=== PATIENT | female | born 1940 | race Asian ===

== ENCOUNTER 2017-02-13 08:58 | Outpatient (CLI) | payer MEDICARE, OTHER ==
[2017-02-13 15:06] LABS: BASOPHILS # (AUTO) 0.1 10^3/uL (0.0-0.1); BASOPHILS % (AUTO) 0.6 %; EOSINOPHILS # (AUTO) 0.3 10^3/uL (0.0-0.7); EOSINOPHILS % (AUTO) 2.2 %; HCT - HEMATOCRIT 36.8 % (37.0-47.0); HGB - HEMOGLOBIN 12.2 g/dL (12.0-16.0); LYMPHOCYTES # (AUTO) 4.8 10^3/uL (1.5-3.5); LYMPHOCYTES % (AUTO) 37.3 %; MEAN CORPUSCULAR HGB CONC 33.3 g/dL (32.0-36.0); MEAN CORPUSCULAR VOLUME 90.1 fL (81.0-99.0); MEAN PLATELET VOLUME 8.3 fL (7.9-10.8); MONOCYTES # (AUTO) 0.9 10^3/uL (0.0-1.0); MONOCYTES % (AUTO) 6.9 %; NEUTROPHILS # (AUTO) 6.9 10^3/uL (1.5-6.6); NUCLEATED RED BLOOD CELLS AUTO 0.1 /100WBC; RED BLOOD COUNT 4.08 10^6/uL (4.20-5.40); RED CELL DISTRIBUTION WIDTH 13.6 % (12.0-15.0)
[2017-02-13 16:04] LABS: ALBUMIN/GLOBULIN RATIO 1.2 (1.0-2.2); BILIRUBIN,TOTAL 0.4 mg/dL (0.2-1.0); CREATININE 0.5 mg/dL (0.4-1.0); POTASSIUM 3.8 mmol/L (3.5-5.0); TOTAL PROTEIN 7.8 g/dL (6.7-8.2)
[2017-02-13 16:34] LABS: HEMOGLOBIN A1C 0.81 g/dL
== END 2017-02-13 08:59 | disposition home or self-care (01) ==
LOC: LAB.WCP 08:58
PROVIDERS: ATTEND Family Medicine
DX: E11.9 Type 2 diabetes mellitus without complications (principal)
CPT/HCPCS: 36415; 80053; 82043; 83036; 85025

== ENCOUNTER 2017-05-03 11:09 | Emergency (ER) | payer MEDICARE, OTHER ==
[2017-05-03 11:40] LABS: BASOPHILS # (AUTO) 0.1 10^3/uL (0.0-0.1); BASOPHILS % (AUTO) 0.6 %; EOSINOPHILS # (AUTO) 0.2 10^3/uL (0.0-0.7); EOSINOPHILS % (AUTO) 1.5 %; HCT - HEMATOCRIT 41.3 % (37.0-47.0); HGB - HEMOGLOBIN 13.5 g/dL (12.0-16.0); LYMPHOCYTES # (AUTO) 5.4 10^3/uL (1.5-3.5); LYMPHOCYTES % (AUTO) 44.6 %; MEAN CORPUSCULAR HEMOGLOBIN 29.4 pg (27.0-31.0); MEAN CORPUSCULAR HGB CONC 32.7 g/dL (32.0-36.0); MEAN CORPUSCULAR VOLUME 90.1 fL (81.0-99.0); MEAN PLATELET VOLUME 6.9 fL (7.9-10.8); MONOCYTES # (AUTO) 0.9 10^3/uL (0.0-1.0); MONOCYTES % (AUTO) 7.2 %; NEUTROPHILS # (AUTO) 5.6 10^3/uL (1.5-6.6); NEUTROPHILS % (AUTO) 46.1 %; NUCLEATED RED BLOOD CELLS AUTO 0.1 /100WBC; RED BLOOD COUNT 4.58 10^6/uL (4.20-5.40); RED CELL DISTRIBUTION WIDTH 13.8 % (12.0-15.0)
[2017-05-03 11:51] LABS: BILIRUBIN,URINE NEGATIVE (NEGATIVE); UA CHARGE (STRIP ONLY) YES; UR CULTURE IF IND NOT INDICATED
[2017-05-03 12:02] LABS: ALBUMIN/GLOBULIN RATIO 1.2 (1.0-2.2); BILIRUBIN,TOTAL 0.6 mg/dL (0.2-1.0); CALCIUM 9.7 mg/dL (8.5-10.3); CREATININE 0.5 mg/dL (0.4-1.0); POTASSIUM 3.8 mmol/L (3.5-5.0); TOTAL PROTEIN 9.1 g/dL (6.7-8.2)
[2017-05-03 12:03] LABS: PLATELET ESTIMATE, MANUAL NORMAL (130-450,000) (NORMAL); PLATELET MORPHOLOGY NORMAL APPEARANCE (NORMAL)
[2017-05-03 12:04] LABS: WBC MORPHOLOGY (MULTIPLE) NORMAL APPEARANCE (NORMAL)
--- NOTE | 2017-05-03 12:09 | ED Physician Documentation ---
PD HPI ABD PAIN - Stated complaint Stated Complaint: R ABD PX - Chief complaint Chief Complaint: Abd Pain - History obtained from History obtained from: Patient - History of Present Illness Timing - onset: Other (76-year-old woman with history of some sort of benign tumor removal, upper abdomen, remotely. For the last 3 days she has had initially intermittent and now constant right lower quadrant pain she is nonmigratory and is nonradiating. Movement does make it a little worse. She denies any constipation or diarrhea, no urinary complaints, no vaginal bleeding or discharge, no nausea, no fever chills. She still has her appendix. Pain is not severe and she declines pain medication on initial evaluation.) Review of Systems Ten Systems: 10 systems reviewed and negative Constitutional: reports: Reviewed and negative Nose: reports: Reviewed and negative Throat: reports: Reviewed and negative Cardiac: reports: Reviewed and negative Respiratory: reports: Reviewed and negative PD PAST MEDICAL HISTORY - Past Medical History Past Medical History: Yes Cardiovascular: Hypertension, High cholesterol Respiratory: None Endocrine/Autoimmune: Type 2 diabetes GI: None : None Psych: Depression Musculoskeletal: Osteoarthritis Derm: None - Past Surgical History Past Surgical History: Yes - Present Medications Home Medications: Ambulatory Orders Medication Instructions Recorded Confirmed Felodipine [Felodipine ER] 10 mg PO DAILY 10/27/15 05/03/17 Glipizide [Glipizide Xl] 2.5 mg PO DAILY 10/27/15 05/03/17 Lisinopril 20 mg PO BID 10/27/15 05/03/17 Potassium Chloride 10 meq PO BID 10/27/15 05/03/17 Sertraline [Zoloft] 50 mg PO DAILY 10/27/15 05/03/17 metFORMIN [Glucophage] 500 mg PO BID 10/27/15 05/03/17 - Allergies Allergies/Adverse Reactions: Allergies Allergy/AdvReac Type Severity Reaction Status Date / Time No Known Drug Allergies Allergy Verified 10/27/15 12:16 - Social History Does the pt smoke?: No Smoking Status: Never smoker Does the pt drink ETOH?: No Does the pt have substance abuse?: No - Family History Family history: reports: Non contributory PD ED PE NORMAL - Vitals Vital signs reviewed: Yes - General General: Alert and oriented X 3, No acute distress - HEENT HEENT: PERRL, EOMI - Neck Neck: Supple, no meningeal sign, No bony TTP - Cardiac Cardiac: RRR, No murmur - Respiratory Respiratory: No respiratory distress, Clear bilaterally - Abdomen Abdomen: Normal bowel sounds, Soft, Other (Focal right lower quadrant tenderness without guarding or rebound, she has a well-healed laparotomy incision, supraumbilical.) - Back Back: No CVA TTP, No spinal TTP - Derm Derm: Normal color, Warm and dry - Extremities Extremities: No edema, No calf tenderness / cord - Neuro Neuro: Alert and oriented X 3, Normal speech - Psych Psych: Normal mood, Normal affect Results - Vitals Vitals: Vital Signs - 24 hr 05/03/17 05/03/17 05/03/17 11:17 11:46 12:45 Temperature 36.2 C L 36.3 C L Heart Rate 78 66 Respiratory 14 16 Rate Blood Pressure 182/96 H 177/78 H O2 Saturation 98 96 Oxygen O2 Source Room air - Labs Labs: Laboratory Tests 05/03/17 05/03/17 05/03/17 11:25 11:30 11:30 WBC 12.0 H RBC 4.58 Hgb 13.5 Hct 41.3 MCV 90.1 MCH 29.4 MCHC 32.7 RDW 13.8 Plt Count 411 MPV 6.9 L Neut # 5.6 Lymph # 5.4 H Starke # 0.9 Eos # 0.2 Baso # 0.1 Absolute Nucleated RBC 0.01 Nucleated RBC % 0.1 Manual Slide Review Indicated WBC Morphology NORMAL APPEARANCE Platelet Estimate NORMAL (130-450,000) Platelet Morphology NORMAL APPEARANCE RBC Morph Micro Appear NORMAL APPEARANCE Sodium 137 Potassium 3.8 Chloride 99 L Carbon Dioxide 28 Anion Gap 10.0 BUN 12 Creatinine 0.5 Estimated GFR (MDRD) 120 Glucose 190 H Calcium 9.7 Total Bilirubin 0.6 AST 21 ALT 16 Alkaline Phosphatase 80 Total Protein 9.1 H Albumin 4.9 Globulin 4.2 Albumin/Globulin Ratio 1.2 Lipase 40 Urine Color YELLOW Urine Clarity CLEAR Urine pH 6.0 Ur Specific [place] 1.025 Urine Protein TRACE Urine Glucose (UA) 100 H Urine Ketones NEGATIVE Urine Occult Blood NEGATIVE Urine Nitrite NEGATIVE Urine Bilirubin NEGATIVE Urine Urobilinogen 0.2 (NORMAL) Ur Leukocyte Esterase NEGATIVE Ur Microscopic Review NOT INDICATED Urine Culture Comments NOT INDICATED - Rads (name of study) CT A/P Radiology: EMP read contemporaneously (Negative for appendicitis, she does have some benign-appearing small growths in the upper abdomen that were present 10 years ago.) PD MEDICAL DECISION MAKING - ED course ED course: 76-year-old woman presents with focal right lower quadrant pain. She does have a leukocytosis, however it is a lymphocytosis and she tells me this is being worked up with an oncology visit next week. Her CT scan is without of evidence of appendicitis, the incidental findings were discussed with the patient and she has follow-up next week. Departure - Departure Disposition: 01 Home, Self Care Clinical Impression: Abdominal pain Qualifiers: Abdominal location: right lower quadrant Qualified Code(s): R10.31 - Right lower quadrant pain Condition: Good Record reviewed to determine appropriate education?: Yes Instructions: ED Abdominal Pain Unkn Cause Comments: Return in 12-24 hours if not better, anytime if worse or if new symptoms develop. Your blood pressure was elevated today on check into the emergency department. This does not mean that you have hypertension, it is a common phenomenon to come to the emergency department and have elevated blood pressure. I recommend that she see your primary care physician within the week to have it rechecked when you are feeling better.
[2017-05-03 12:46] VITALS: BP 177/78
[2017-05-03] MEDS ORDERED: IOPAMIDOL-300 100 ML VIAL IVP ONE (13:20)
--- NOTE | 2017-05-03 13:53 | CT Preliminary Report ---
Exam: CT Abdomen/Pelvis W/ IMPRESSION: 1. Normal appendix. No acute CT abnormality to explain symptoms. 2. Liver and renal cysts. 3. Soft tissue nodules adjacent to the superior mesenteric vein in the upper abdomen which measure mi ldly larger compared to a CT from 10 years earlier. This rate of growth favors a benign process, such as splenosis or reactive lymph node enlargement. [facility] SITE ID: [id number]
--- NOTE | 2017-05-03 13:56 | CT Report ---
EXAM: CT ABDOMEN AND PELVIS EXAM DATE: 05/03/2017 01:14 PM. CLINICAL HISTORY: Iv only, RLQ pain. COMPARISONS: 08/21/2006. TECHNIQUE: Routine helical CT imaging was performed through the abdomen and pelvis. IV contrast: 80 c c Isovue 300. Enteric contrast: No. Reconstructions: Coronal and sagittal. In accordance with CT protocol optimization, one or more of the following dose reduction techniques w ere utilized for this exam: automated exposure control, adjustment of mA and/or KV based on patient s ize, or use of iterative reconstructive technique. FINDINGS: Lung Bases: Unremarkable. Liver: There are multiple small round low density lesions within the liver which appear without signi ficant change. Gallbladder/Bile Ducts: Unremarkable. Spleen: The spleen is absent. There are surgical clips in the left upper quadrant of the abdomen. Pancreas: Normal. Adrenal Glands: Normal. Kidneys: There is a cyst in the midpole of the right kidney measuring 0.8 cm in diameter. There is an exophytic left renal cyst measuring 1.3 cm. No hydronephrosis. Peritoneal Cavity/Bowel: Stomach and duodenum are unremarkable. Small bowel is normal in caliber with out transition zone. The colon is nondilated. The appendix is well visualized and normal. There is a ovoid soft tissue nodule anterior to the superior mesenteric vein measuring 1.3 x 1.0 cm which previo usly measured 1.2 x 0.8 cm. There is a second omental nodule located to the right of the superior mes enteric vein image 42 measuring 1.3 x 1.2 cm previously measuring 0.9 x 0.8 cm. Pelvic Organs: Urinary bladder is unremarkable. Uterus nonvisualized. Vasculature: No aneurysms or other significant abnormality. Bones: No significant abnormality. Other: None. IMPRESSION: 1. Normal appendix. No acute CT abnormality to explain symptoms. 2. Liver and renal cysts. 3. Soft tissue nodules adjacent to the superior mesenteric vein in the upper abdomen which measure mi ldly larger compared to a CT from 10 years earlier. This rate of growth favors a benign process, such as splenosis or reactive lymph node enlargement. [facility] Referring Provider Line: [phone] SITE ID: [id number]
== END 2017-05-03 14:11 | disposition home or self-care (01) ==
LOC: ED 11:09
DX: R10.31 Right lower quadrant pain (principal); I10 Essential (primary) hypertension; E78.00 Pure hypercholesterolemia, unspecified; E11.8 Type 2 diabetes mellitus with unspecified complications; Z79.84 Long term (current) use of oral hypoglycemic drugs
CPT/HCPCS: 36415; 74177; 80053; 81001; 81003; 83690; 85025; 87086; 99283; 99284

== ENCOUNTER 2017-10-23 08:00 | Outpatient (CLI) | payer MEDICARE, OTHER ==
[2017-10-23 19:13] LABS: ALBUMIN 4.4 g/dL (3.2-5.5); ALBUMIN/GLOBULIN RATIO 1.3 (1.0-2.2); ALKALINE PHOSPHATASE 67 IU/L (42-121); ALT ALANINE AMINOTRANSFERASE 14 IU/L (10-60); AST ASPARTATE AMINOTRANSFERASE 19 IU/L (10-42); BILIRUBIN,TOTAL 0.6 mg/dL (0.2-1.0); BUN - BLOOD UREA NITROGEN 12 mg/dL (6-20); CARBON DIOXIDE - CO2 26 mmol/L (21-32); CHLORIDE 100 mmol/L (101-111); CHOLESTEROL 260 mg/dL; CREATININE 0.5 mg/dL (0.4-1.0); GFR - MDRD 120 (>89); GLUCOSE 183 mg/dL (70-100); HDL CHOLESTEROL 43 mg/dL; LDL CHOLESTEROL,CALCULATED 179 mg/dL; LDL/HDL RATIO 4.2 (<4.4); SODIUM 135 mmol/L (135-145); TOTAL PROTEIN 7.9 g/dL (6.7-8.2); VLDL CHOLESTEROL 38 mg/dL
[2017-10-23 19:29] LABS: HB2 TOTAL 13.9 g/dL; HEMOGLOBIN A1C 1.14 g/dL; HEMOGLOBIN A1C % 9.7 % (4.6-6.2)
== END 2017-10-23 08:01 | disposition home or self-care (01) ==
LOC: LAB.WCP 08:00
PROVIDERS: ATTEND Family Medicine
DX: E11.9 Type 2 diabetes mellitus without complications (principal); I10 Essential (primary) hypertension; L30.9 Dermatitis, unspecified
CPT/HCPCS: 36415; 80053; 80061; 83036; 83721; 84443

== ENCOUNTER 2017-11-24 08:00 | Outpatient (CLI) | payer MEDICARE, OTHER | END 2017-11-24 08:01 | disposition home or self-care (01) | LOC: LAB.R 08:00 | PROVIDERS: ATTEND Family Medicine | DX: N39.0 Urinary tract infection, site not specified (principal) | CPT/HCPCS: 87077; 87086 ==

== ENCOUNTER 2019-06-06 08:00 | Outpatient (CLI) | payer MEDICARE, OTHER ==
[2019-06-06 19:12] LABS: BASOPHILS % (AUTO) 0.8 %; EOSINOPHILS % (AUTO) 2.1 %; HGB - HEMOGLOBIN 12.5 g/dL (12.0-16.0); LYMPHOCYTES % (AUTO) 51.8 %; MEAN CORPUSCULAR HEMOGLOBIN 29.1 pg (27.0-31.0); MEAN CORPUSCULAR HGB CONC 31.3 g/dL (32.0-36.0); MEAN CORPUSCULAR VOLUME 92.8 fL (81.0-99.0); MEAN PLATELET VOLUME 9.6 fL (7.9-10.8); MONOCYTES % (AUTO) 8.1 %; PLT - PLATELET COUNT 426 10^3/uL (130-450); RED CELL DISTRIBUTION WIDTH 13.2 % (12.0-15.0); WHITE BLOOD COUNT 9.9 x10^3/uL (4.8-10.8)
[2019-06-06 19:41] LABS: HB2 TOTAL 13.2 g/dL; HEMOGLOBIN A1C 1.02 g/dL; HEMOGLOBIN A1C % 9.2 % (4.6-6.2)
[2019-06-06 19:44] LABS: CREATININE,URINE 62.7 mg/dL; MICROALBUM/CREATININE RATIO,UR 457.7 ug/mg (<30.0); MICROALBUMIN,URINE 28.7 mg/dL (0-300.0)
[2019-06-06 19:54] LABS: ALBUMIN 4.2 g/dL (3.2-5.5); ALBUMIN/GLOBULIN RATIO 1.1 (1.0-2.2); ALKALINE PHOSPHATASE 52 IU/L (42-121); ALT ALANINE AMINOTRANSFERASE 14 IU/L (10-60); AST ASPARTATE AMINOTRANSFERASE 18 IU/L (10-42); BILIRUBIN,TOTAL 0.6 mg/dL (0.2-1.0); BUN - BLOOD UREA NITROGEN 11 mg/dL (6-20); CALCIUM 8.9 mg/dL (8.5-10.3); CARBON DIOXIDE - CO2 29 mmol/L (21-32); CHLORIDE 94 mmol/L (101-111); CHOL/HDL RATIO 5.5 (<4.4); CHOLESTEROL 270 mg/dL; CREATININE 0.5 mg/dL (0.4-1.0); GFR - MDRD 119 (>89); GLUCOSE 172 mg/dL (70-100); HDL CHOLESTEROL 49 mg/dL; LDL CHOLESTEROL,CALCULATED 184 mg/dL; LDL/HDL RATIO 3.8 (<4.4); SODIUM 133 mmol/L (135-145); TOTAL PROTEIN 8.2 g/dL (6.7-8.2); VLDL CHOLESTEROL 37 mg/dL
[2019-06-06 20:40] LABS: ABNORMAL LYMPHS % (MANUAL) 0 %; BAND NEUTROPHILS % (MANUAL) 0 %
[2019-06-06 20:43] LABS: EOSINOPHILS # (MANUAL) 0.2 10^3/uL (0-0.7); LYMPHOCYTES # (MANUAL) 5.8 10^3/uL (1.5-3.5); LYMPHOCYTES % (MANUAL) 52 %; MONOCYTES # (MANUAL) 0.4 10^3/uL (0.0-1.0)
[2019-06-06 20:44] LABS: DIFFERENTIAL COMMENT MANUAL DIFFERENTIAL; PLATELET ESTIMATE, MANUAL NORMAL (130-450,000) (NORMAL); PLATELET MORPHOLOGY NORMAL APPEARANCE (NORMAL); RBC MORPHOLOGY (MULTIPLE) NORMAL APPEARANCE (NORMAL)
== END 2019-06-06 23:59 | disposition home or self-care (01) ==
LOC: LAB.WCP 08:00
PROVIDERS: ATTEND Family Medicine
DX: E11.9 Type 2 diabetes mellitus without complications (principal); D72.829 Elevated white blood cell count, unspecified
CPT/HCPCS: 36415; 80053; 80061; 82043; 82570; 83036; 83721; 85025

== ENCOUNTER 2019-08-08 12:17 | Outpatient (CLI) | payer MEDICARE, OTHER ==
--- NOTE | 2019-08-08 14:51 | XRAY Report ---
Reason: COUGH Procedure Date: 08/08/2019 Accession Number: [id number] / [id number] Procedure: WCP - Chest 2 View X-Ray CPT Code: 64705 Final Report FULL RESULT: EXAM: CHEST RADIOGRAPHY EXAM DATE: 08/08/2019 12:17 PM. CLINICAL HISTORY: Cough. COMPARISON: 06/20/2016. TECHNIQUE: 2 views. FINDINGS: Lungs/Pleura: No focal opacities evident. No pleural effusion. No pneumothorax. Normal volumes. Mediastinum: Heart and mediastinal contours are unremarkable. Other: Postsurgical changes in the left upper quadrant are again seen. IMPRESSION: No acute cardiopulmonary abnormality. [facility]
== END 2019-08-08 23:59 | disposition home or self-care (01) ==
LOC: DI.WCP 12:17
PROVIDERS: ATTEND Family Medicine
DX: R05 Cough (principal)
CPT/HCPCS: 71046

== ENCOUNTER 2019-11-26 09:57 | Outpatient (CLI) | payer MEDICARE, OTHER ==
--- NOTE | 2019-11-27 04:49 | XRAY Report ---
Reason: COUGH Procedure Date: 11/26/2019 Accession Number: [id number] / [id number] Procedure: WCP - Chest 2 View X-Ray CPT Code: 44494 Final Report FULL RESULT: EXAM: CHEST RADIOGRAPHY EXAM DATE: 11/26/2019 09:57 AM. CLINICAL HISTORY: COUGH. COMPARISON: CHEST 2 VIEW 08/08/2019 11:58 AM. TECHNIQUE: 2 views. FINDINGS: Surgical clips are seen in the upper left abdomen. The mediastinal and cardiac silhouettes are normal. The lungs are clear. There is no pleural effusion or pneumothorax. The osseous thorax is intact. IMPRESSION: No focal consolidation. [facility]
== END 2019-11-26 23:59 | disposition home or self-care (01) ==
LOC: DI.WCP 09:57
PROVIDERS: ATTEND Family Medicine
DX: R05 Cough (principal)
CPT/HCPCS: 71046

== ENCOUNTER 2020-02-28 10:35 | Outpatient (CLI) | payer MEDICARE, OTHER ==
[2020-02-28 11:38] LABS: BASOPHILS # (AUTO) 0.1 10^3/uL (0.0-0.1); BASOPHILS % (AUTO) 1.3 %; EOSINOPHILS # (AUTO) 0.5 10^3/uL (0.0-0.7); EOSINOPHILS % (AUTO) 4.5 %; HGB - HEMOGLOBIN 13.5 g/dL (12.0-16.0); LYMPHOCYTES # (AUTO) 5.8 10^3/uL (1.5-3.5); LYMPHOCYTES % (AUTO) 51.8 %; MEAN CORPUSCULAR HEMOGLOBIN 30.8 pg (27.0-31.0); MEAN CORPUSCULAR HGB CONC 33.7 g/dL (32.0-36.0); MEAN CORPUSCULAR VOLUME 91.6 fL (81.0-99.0); MEAN PLATELET VOLUME 9.8 fL (7.9-10.8); MONOCYTES # (AUTO) 0.7 10^3/uL (0.0-1.0); PLT - PLATELET COUNT 473 10^3/uL (130-450); RED BLOOD COUNT 4.38 10^6/uL (4.20-5.40); RED CELL DISTRIBUTION WIDTH 12.7 % (12.0-15.0); WHITE BLOOD COUNT 11.1 x10^3/uL (4.8-10.8)
[2020-02-28 12:28] LABS: HB2 TOTAL 13.8 g/dL; HEMOGLOBIN A1C 0.73 g/dL
[2020-02-28 12:32] LABS: ALBUMIN 4.4 g/dL (3.2-5.5); ALBUMIN/GLOBULIN RATIO 1.1 (1.0-2.2); ALKALINE PHOSPHATASE 37 IU/L (42-121); ALT ALANINE AMINOTRANSFERASE 16 IU/L (10-60); AST ASPARTATE AMINOTRANSFERASE 22 IU/L (10-42); BILIRUBIN,TOTAL 0.7 mg/dL (0.2-1.0); BUN - BLOOD UREA NITROGEN 12 mg/dL (6-20); CALCIUM 9.7 mg/dL (8.5-10.3); CARBON DIOXIDE - CO2 27 mmol/L (21-32); CHLORIDE 92 mmol/L (101-111); CHOL/HDL RATIO 4.2 (<4.4); CHOLESTEROL 218 mg/dL; CREATININE 0.6 mg/dL (0.4-1.0); GLUCOSE 84 mg/dL (70-100); HDL CHOLESTEROL 52 mg/dL; LDL CHOLESTEROL,CALCULATED 127 mg/dL; LDL/HDL RATIO 2.4 (<4.4); SODIUM 133 mmol/L (135-145); TOTAL PROTEIN 8.5 g/dL (6.7-8.2); VLDL CHOLESTEROL 39 mg/dL
[2020-02-28 13:04] LABS: DIFFERENTIAL COMMENT MANUAL=AUTO DIFF; PLATELET ESTIMATE, MANUAL INCREASED (>450,000) (NORMAL); PLATELET MORPHOLOGY NORMAL APP (NORMAL); RBC MORPHOLOGY (MULTIPLE) NORMAL APPEARANCE (NORMAL)
[2020-02-28 19:08] LABS: CREATININE,URINE 71.9 mg/dL; MICROALBUM/CREATININE RATIO,UR 244.8 ug/mg (<30.0); MICROALBUMIN,URINE 17.6 mg/dL (0-300.0)
== END 2020-02-28 23:59 | disposition home or self-care (01) ==
LOC: LAB.WCP 10:35
PROVIDERS: ATTEND Family Medicine
DX: E11.9 Type 2 diabetes mellitus without complications (principal); I10 Essential (primary) hypertension
CPT/HCPCS: 36415; 80053; 80061; 81599; 82043; 82570; 83036; 83721; 84443; 84484; 85025

== ENCOUNTER 2020-03-03 10:31 | Outpatient (CLI) | payer MEDICARE, OTHER ==
--- NOTE | 2020-03-03 16:47 | DEXA Report ---
Reason: ASYMPTOMATIC POSTMENOPAUSAL STATUS Procedure Date: 03/03/2020 Accession Number: [id number] / [id number] Procedure: DEX - Dexa Spine and/or Hip CPT Code: Final Report FULL RESULT: PROCEDURE: Dexa Spine and/or Hip INDICATIONS: ASYMPTOMATIC POSTMENOPAUSAL STATUS TECHNIQUE: Dual energy x-ray absorptiometry (DXA) was performed on a [employer] System. Regions measured are the AP Spine, femoral neck, and if needed forearm. COMPARISON: None. FINDINGS: Lumbar Spine: Bone Mineral Density 1.160 g/cm/cm,T score -0.2, normal Left Hip: Bone Mineral Density 0.927 g/cm/cm,T score -0.6, normal Left Femoral Neck: Bone Mineral Density 0.987 g/cm/cm, T score -0.4, normal (T score greater or equal to -1.0: NORMAL) (T score from -1.1 to -2.4: OSTEOPENIA) (T score less than or equal to -2.5 to: OSTEOPOROSIS) Impression: Normal bone density. Patients with diagnosis of osteoporosis or osteopenia should have regular bone mineral density assessment. For those eligible for Medicare, routine testing is allowed once every 2 years. Testing frequency can be increased for patients who have rapidly progressing disease or for those who are receiving medical therapy to restore bone mass. Reviewed by: Ana Blankenship MD, PhD on 03/03/2020 4:46 PM PDT Approved by: Ana Blankenship MD, PhD on 03/03/2020 4:46 PM PDT Station ID: [id number]
== END 2020-03-03 10:32 | disposition home or self-care (01) ==
LOC: DI 10:31
PROVIDERS: ATTEND Family Medicine
DX: Z78.0 Asymptomatic menopausal state (principal)
CPT/HCPCS: 77080

== ENCOUNTER 2020-04-06 10:02 | Outpatient (CLI) | payer MEDICARE, OTHER ==
[2020-04-06] MEDS ORDERED: IOVERSOL 320 50 ML VIAL ONE (10:11)
[2020-04-06] MEDS ORDERED: IOVERSOL 320 100 ML VIAL IVP ONE ×2 (10:11→12:09)
[2020-04-06 10:43] LABS: ALBUMIN 4.5 g/dL (3.2-5.5); ALBUMIN/GLOBULIN RATIO 1.1 (1.0-2.2); BILIRUBIN,TOTAL 0.5 mg/dL (0.2-1.0); CALCIUM 9.5 mg/dL (8.5-10.3); CREATININE 0.7 mg/dL (0.4-1.0); TOTAL PROTEIN 8.5 g/dL (6.7-8.2)
[2020-04-06] MEDS ORDERED: IOVERSOL 320 50 ML VIAL PO ONE (12:08)
--- NOTE | 2020-04-06 14:44 | CT Report ---
PROCEDURE: Abdomen/Pelvis W INDICATIONS: ABD PAIN, LYMPHADENOPATHY CONTRAST: IV CONTRAST: Optiray 320 ml: 80 PO CONTRAST: Optiray 320 ml50 TECHNIQUE: After the administration of oral and intravenous contrast, 5 mm thick sections acquired from the diap hragms to the symphysis. 5 mm thick coronal and sagittal reformats were acquired. For radiation dos e reduction, the following was used: automated exposure control, adjustment of mA and/or kV accordin g to patient size. COMPARISON: CT abdomen/pelvis dated 05/03/2017 FINDINGS: Image quality: Excellent. ABDOMEN: Lung bases: Lung bases are clear. Heart size is normal. Solid organs: Liver is normal in size and enhancement. The previously seen hepatic cysts are less p rominent on the current exam. Gallbladder appears normal. Biliary system is non dilated. Pancreas e nhances normally. The spleen is surgically absent. No adrenal nodules. Kidneys demonstrate normal s ize and enhancement, without hydronephrosis. A simple exophytic cyst is seen in the left kidney. No solid renal mass is identified. Peritoneum and bowel: An air-filled diverticulum is seen in the third portion of the duodenum. Bowel loops demonstrate normal wall thickness and caliber. The appendix appears normal. No free fluid or a ir. Nodes and vessels: Atherosclerotic calcifications are seen in the aorta. Soft tissue nodules are agai n seen along the superior mesenteric vein measuring 1.6 x 1.3 cm superiorly and 2.2 x 1.7 cm more inf eriorly on axial images. The more inferior lesion previously measured 1.4 x 1.2 cm, and the more supe rior lesion is unchanged in size. A left periaortic lymph node measures up to 1.2 cm in short axis di ameter, not significantly changed in size when compared to the prior CT. Additional subcentimeter ret roperitoneal lymph nodes are seen that are nonspecific. Miscellaneous: No ventral hernias. PELVIS: Genitourinary: Bladder wall thickness is normal. The uterus is surgically absent. No adnexal mass i s seen. Miscellaneous: No inguinal hernias or adenopathy. Bones: No suspicious bony lesions. No vertebral body compression fractures. Mild degenerative posadas ges are seen in the included portion of the spine. IMPRESSION: Two soft tissue nodules are again seen along the course of the superior mesenteric vein. The more inf erior nodule has increased in size, now measuring 2.2 x 1.7 cm, compared to 1.4 x 1.2 cm on the prior exam from 05/03/2017. The more superior lesion is unchanged in size at 1.6 x 1.3 cm. Additionally, a stable left periaortic lymph node measures up to 1.2 cm in short axis diameter, unchanged when compar ed to the prior CT. Findings are of uncertain etiology, and continued imaging follow-up versus tissue biopsy may be considered. Reviewed by: Oscar Sky MD on 04/06/2020 2:42 PM PDT Approved by: Oscar Sky MD on 04/06/2020 2:42 PM PDT Station ID: [id number]
== END 2020-04-06 10:03 | disposition home or self-care (01) ==
LOC: DI 10:02
PROVIDERS: ATTEND Family Medicine
DX: R10.9 Unspecified abdominal pain (principal); R59.1 Generalized enlarged lymph nodes; E11.9 Type 2 diabetes mellitus without complications; I10 Essential (primary) hypertension; E78.5 Hyperlipidemia, unspecified
CPT/HCPCS: 36415; 74177; 80053; Q9967

== ENCOUNTER 2020-05-07 08:36 | Outpatient (CLI) | payer MEDICARE, OTHER ==
[2020-05-07 12:01] LABS: BASOPHILS # (AUTO) 0.1 10^3/uL (0.0-0.1); EOSINOPHILS # (AUTO) 0.1 10^3/uL (0.0-0.7); EOSINOPHILS % (AUTO) 0.7 %; HGB - HEMOGLOBIN 12.8 g/dL (12.0-16.0); LYMPHOCYTES # (AUTO) 4.8 10^3/uL (1.5-3.5); LYMPHOCYTES % (AUTO) 50.7 %; MEAN CORPUSCULAR HEMOGLOBIN 30.5 pg (27.0-31.0); MEAN CORPUSCULAR HGB CONC 33.2 g/dL (32.0-36.0); MEAN CORPUSCULAR VOLUME 92.1 fL (81.0-99.0); MEAN PLATELET VOLUME 9.4 fL (7.9-10.8); MONOCYTES # (AUTO) 0.7 10^3/uL (0.0-1.0); MONOCYTES % (AUTO) 7.8 %; NEUTROPHILS # (AUTO) 3.7 10^3/uL (1.5-6.6); NEUTROPHILS % (AUTO) 39.4 %; RED BLOOD COUNT 4.19 10^6/uL (4.20-5.40); RED CELL DISTRIBUTION WIDTH 13.3 % (12.0-15.0); WHITE BLOOD COUNT 9.4 x10^3/uL (4.8-10.8)
[2020-05-07 12:46] LABS: PLATELET ESTIMATE, MANUAL INCREASED (>450,000) (NORMAL); PLATELET MORPHOLOGY NORMAL APPEARANCE (NORMAL); PLT - PLATELET COUNT 476 10^3/uL (130-450); RBC MORPHOLOGY (MULTIPLE) NORMAL APPEARANCE (NORMAL)
== END 2020-05-07 23:59 | disposition home or self-care (01) ==
LOC: LAB.WCP 08:36
PROVIDERS: ATTEND Family Medicine
DX: R05 Cough (principal)
CPT/HCPCS: 36415; 81599; 85025

== ENCOUNTER 2020-05-07 11:35 | Outpatient (CLI) | payer MEDICARE, OTHER ==
--- NOTE | 2020-05-07 11:52 | XRAY Report ---
PROCEDURE: Chest 2 View X-Ray INDICATIONS: Chronic TECHNIQUE: 2 view(s) of the chest. COMPARISON: None. FINDINGS: Surgical changes and devices: None. Lungs and pleura: No pleural effusions or pneumothorax. Lungs are clear. Mediastinum: Mediastinal contours are normal. Heart size is normal. Bones and chest wall: No suspicious bony abnormalities. Soft tissues appear unremarkable. IMPRESSION: No acute cardiopulmonary process demonstrated radiographically. Reviewed by: Beltran Arita MD on 05/07/2020 11:51 AM PDT Approved by: Beltran Arita MD on 05/07/2020 11:51 AM PDT Station ID: [id number]
== END 2020-05-07 11:36 | disposition home or self-care (01) ==
LOC: DI 11:35
PROVIDERS: ATTEND Family Medicine
DX: R05 Cough (principal)
CPT/HCPCS: 36415; 71046; 81599; 85025

== ENCOUNTER 2020-06-05 12:57 | Outpatient (CLI) | payer MEDICARE, OTHER | END 2020-06-05 12:58 | disposition home or self-care (01) | LOC: RT 12:57 | PROVIDERS: ATTEND Family Medicine | DX: R05 Cough (principal) ==

== ENCOUNTER 2020-06-24 04:21 | Inpatient (IN) | payer MEDICARE, OTHER ==
[2020-06-24] MEDS ORDERED: SODIUM CHLORIDE 0.9% 1,000 ML IV STA ×2 (04:36→06:44)
--- NOTE | 2020-06-24 04:39 | ED Physician Documentation ---
PD HPI FOCAL NEURO - Stated complaint Stated Complaint: RT SIDE NUMB - History obtained from History obtained from: Patient - History of Present Illness Timing - onset: Enter time (0200), Today Timing - duration: Hours Timing - details: Abrupt onset, Still present Time of symptom onset unknown: Time of onset unknown (went to bed normal at 8pm) Severity of deficit: Moderate Weakness: Arm, Hand, Leg, Foot, Right Numbness: Arm, Hand, Leg, Foot, Right Associated symptoms: No: Headache, Nausea / vomiting, Seizure, Syncope, Fall, Head injury, Chest pain, Neck pain, Back pain, Fever Contributing factors: negative: Anticoagulated, Vascular dz, Atrial fibrillation Baseline status: positive: A&OX3, ambulatory, indep Similar symptoms before: Has not had sx before Recently seen: Not recently seen - Additional information Additional information: Previously well 79-year-old female with a history of hypertension diabetes was well when she went to bed last night at 8 PM. She woke at 2 AM unable to move her right side normally. She tried to get up to go to the bathroom and found that she had to crawl to the bathroom as she was too weak on the right side. She has some numbness on the right side as well. She denies any issue with visual field deficit and she denies any facial involvement. She has otherwise been feeling well with the exception of a high blood sugar last night. She also has had a cough that was present for more than a month that has now resolved after taking a small white pill last month. Review of Systems Constitutional: denies: Fever Eyes: denies: Decreased vision Ears: denies: Ear pain Nose: denies: Congestion Throat: denies: Sore throat Cardiac: denies: Chest pain / pressure, Palpitations Respiratory: denies: Dyspnea, Cough GI: denies: Abdominal Pain, Nausea, Vomiting, Constipation, Diarrhea : denies: Dysuria, Frequency Skin: denies: Rash Musculoskeletal: denies: Neck pain, Back pain, Extremity pain Neurologic: reports: Focal weakness, Numbness. denies: Generalized weakness, Difficulty speaking, Near syncope, Confused, Altered mental status, Headache, Head injury, LOC PD PAST MEDICAL HISTORY - Past Medical History Cardiovascular: Hypertension, High cholesterol Respiratory: None Endocrine/Autoimmune: Type 2 diabetes GI: None : None HEENT: Other Psych: Depression Musculoskeletal: Osteoarthritis Derm: Eczema - Past Surgical History Past Surgical History: Yes General: Other HEENT: Cataracts - Present Medications Home Medications: Ambulatory Orders Medication Instructions Recorded Confirmed Felodipine [Felodipine ER] 1 tab PO DAILY 10/27/15 06/24/20 Glipizide [Glipizide Xl] 1 tab PO DAILY 10/27/15 06/24/20 Lisinopril 2 tab PO BID 10/27/15 06/24/20 Potassium Chloride 2 tab PO BID 10/27/15 06/24/20 Hydrochlorothiazide 1 tab PO DAILY 06/24/20 06/24/20 - Allergies Allergies/Adverse Reactions: Allergies Allergy/AdvReac Type Severity Reaction Status Date / Time No Known Drug Allergies Allergy Verified 06/24/20 05:38 - Social History Does the pt smoke?: No Smoking Status: Never smoker Does the pt drink ETOH?: No Does the pt have substance abuse?: No PD ED PE NORMAL - Vitals Vital signs reviewed: Yes - General General: Alert and oriented X 3, Well developed/nourished, Other (The patient has the tears of stroke realization present) - HEENT HEENT: Atraumatic, PERRL, EOMI - Neck Neck: Supple, no meningeal sign, No bony TTP - Cardiac Cardiac: RRR, No murmur - Respiratory Respiratory: No respiratory distress, Clear bilaterally - Abdomen Abdomen: Normal bowel sounds, Soft, Non tender, Non distended, No organomegaly - Back Back: No CVA TTP, No spinal TTP - Derm Derm: Normal color, Warm and dry, No rash - Extremities Extremities: No deformity, No edema - Neuro Neuro: Alert and oriented X 3, 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, Normal speech, Other (There is weakness to the right upper and lower extremities in comparison to the left) Eye Opening: Spontaneous Motor: Obeys Commands Verbal: Oriented GCS Score: 15 - Psych Psych: Normal mood, Normal affect NIHSS - Level of Consciousness Level of consciousness: (0) Alert, Keenly responsive LOC Questions: (0) Answers both Q's correct LOC Commands: (0) Performs both correctly - Gaze Best Gaze: (0) Normal - Visual Visual: (0) No loss - Facial Palsy Facial Palsy: (0) Normal, symmetrical movement - Motor Arms (both separate) Motor Arm (right): (1) Drift Motor Arm (left): (0) No drift - Motor Legs (both separate) Motor Leg (right): (1) Drift Motor Leg (left): (0) No drift - Limb Ataxia Limb Ataxia: (1) Present in 1 limb - Sensory Sensory: (1) Ggol-ii-bkikmnvr loss - Best Language Best Language: (0) No aphasia - Dysarthria Dysarthria: (0) Normal - Extinction and Inattention (formally neg Extinction and inattention: (0) No abnormality - Total Score/Results Total Score/Result: 4 Results - Vitals Vitals: Vital Signs - 24 hr 06/24/20 06/24/20 06/24/20 04:29 04:30 05:37 Temperature 36.8 C Heart Rate 85 85 85 Respiratory 22 22 18 Rate Blood Pressure 206/101 H 184/92 H O2 Saturation 98 99 99 06/24/20 06:18 Temperature Heart Rate 77 Respiratory 18 Rate Blood Pressure 200/87 H O2 Saturation 99 Oxygen O2 Source Room air - EKG (time done) 0455 Rate: Rate (enter#) (77) Rhythm: NSR QRS: LVH Compare to prior EKG: Unchanged from prior EKG (SPT 10-27-2015 no changes) Computer interpretation: Agree with computer - Labs Labs: Laboratory Tests 06/24/20 06/24/20 06/24/20 04:24 04:24 04:29 WBC 10.3 RBC 4.31 Hgb 13.1 Hct 39.0 MCV 90.5 MCH 30.4 MCHC 33.6 RDW 12.8 Plt Count 449 MPV 8.5 Neut # (Auto) Not Reportable Lymph # (Auto) Not Reportable [place] # (Auto) Not Reportable Eos # (Auto) Not Reportable Baso # (Auto) Not Reportable Absolute Nucleated RBC Not Reportable Total Counted 100 Band Neuts % (Manual) 0 Reactive Lymphs % (Man) 3 Abnorm Lymph % (Manual) 0 Nucleated RBC % Not Reportable Neutrophils # (Manual) 6.3 Lymphocytes # (Manual) 3.0 Monocytes # (Manual) 0.5 Eosinophils # (Manual) 0.4 Basophils # (Manual) 0.1 Differential Comment MANUAL DIFFERENTIAL Platelet Estimate NORMAL (130-450,000) RBC Morph Micro Appear NORMAL APPEARANCE Sodium 139 Potassium 3.3 L Chloride 103 Carbon Dioxide 22 Anion Gap 14.0 H BUN 11 Creatinine 0.6 Estimated GFR (MDRD) 96 Glucose 215 H POC Whole Bld Glucose 209 H Lactic Acid Calcium 9.2 Total Bilirubin 0.8 AST 17 ALT 14 Alkaline Phosphatase 49 Total Protein 8.4 H Albumin 4.3 Globulin 4.1 Albumin/Globulin Ratio 1.0 Lipase 49 Urine Color Urine Clarity Urine pH Ur Specific [place] Urine Protein Urine Glucose (UA) Urine Ketones Urine Occult Blood Urine Nitrite Urine Bilirubin Urine Urobilinogen Ur Leukocyte Esterase Urine RBC Urine WBC Ur Squamous Epith Cells Urine Bacteria Ur Microscopic Review Urine Culture Comments Nasal Adenovirus (PCR) Nasal B. parapertussis DNA (PCR) Nasal Coronavir 229E PCR Nasal Coronavir HKU1 PCR Nasal Coronavir NL63 PCR Nasal Coronavir OC43 PCR Nasal Enterovir/Rhinovir PCR Nasal Influenza B PCR Nasal Influenza A PCR Nasal Parainfluen 1 PCR Nasal Parainfluen 2 PCR Nasal Parainfluen 3 PCR Nasal Parainfluen 4 PCR Nasal RSV (PCR) Nasal B.pertussis DNA PCR Nasal C.pneumoniae (PCR) Augustus Human Metapneumo PCR Nasal M.pneumoniae (PCR) Nasal SARS-CoV-2 (PCR) 06/24/20 06/24/20 06/24/20 04:35 04:49 05:40 WBC RBC Hgb Hct MCV MCH MCHC RDW Plt Count MPV Neut # (Auto) Lymph # (Auto) [place] # (Auto) Eos # (Auto) Baso # (Auto) Absolute Nucleated RBC Total Counted Band Neuts % (Manual) Reactive Lymphs % (Man) Abnorm Lymph % (Manual) Nucleated RBC % Neutrophils # (Manual) Lymphocytes # (Manual) Monocytes # (Manual) Eosinophils # (Manual) Basophils # (Manual) Differential Comment Platelet Estimate RBC Morph Micro Appear Sodium Potassium Chloride Carbon Dioxide Anion Gap BUN Creatinine Estimated GFR (MDRD) Glucose POC Whole Bld Glucose Lactic Acid 1.6 Calcium Total Bilirubin AST ALT Alkaline Phosphatase Total Protein Albumin Globulin Albumin/Globulin Ratio Lipase Urine Color YELLOW Urine Clarity HAZY Urine pH 7.0 Ur Specific [place] 1.020 Urine Protein 100 H Urine Glucose (UA) 100 H Urine Ketones NEGATIVE Urine Occult Blood NEGATIVE Urine Nitrite NEGATIVE Urine Bilirubin NEGATIVE Urine Urobilinogen 0.2 (NORMAL) Ur Leukocyte Esterase SMALL H Urine RBC 0-5 Urine WBC 11-25 H Ur Squamous Epith Cells FEW Squamous Urine Bacteria Many H Ur Microscopic Review INDICATED Urine Culture Comments INDICATED Nasal Adenovirus (PCR) NOT DETECTED Nasal B. parapertussis DNA (PCR) NOT DETECTED Nasal Coronavir 229E PCR NOT DETECTED Nasal Coronavir HKU1 PCR NOT DETECTED Nasal Coronavir NL63 PCR NOT DETECTED Nasal Coronavir OC43 PCR NOT DETECTED Nasal Enterovir/Rhinovir PCR NOT DETECTED Nasal Influenza B PCR NOT DETECTED Nasal Influenza A PCR NOT DETECTED Nasal Parainfluen 1 PCR NOT DETECTED Nasal Parainfluen 2 PCR NOT DETECTED Nasal Parainfluen 3 PCR NOT DETECTED Nasal Parainfluen 4 PCR NOT DETECTED Nasal RSV (PCR) NOT DETECTED Nasal B.pertussis DNA PCR NOT DETECTED Nasal C.pneumoniae (PCR) NOT DETECTED Augustus Human Metapneumo PCR NOT DETECTED Nasal M.pneumoniae (PCR) NOT DETECTED Nasal SARS-CoV-2 (PCR) NOT DETECTED - Rads (name of study) CTA head Radiology: Prelim report reviewed (Impression: Unremarkable CTA of head.), EMP read indepedently, See rad report CTA neck Radiology: Prelim report reviewed (Unremarkable CTA neck.), EMP read indepedently, See rad report Procedures - IVC sono (time) 0430 Bedside IVC sono: IVC measures (cm) (0.77), IVC collapsed c insp (cm) (complete), Dehydration (est 2+ liter deficit) PD MEDICAL DECISION MAKING - ED course Complexity details: reviewed old records, reviewed results, re-evaluated pat ient, considered differential, d/w patient ED course: 79-year-old female with a history of diabetes hypertension arrives to the emergency department with right-sided weakness consistent with a CVA. She does not have involvement of her face and her weakness is not profound. She is found to be dehydrated on interrogation the inferior vena cava and intravenous saline is begun as well as a work-up for stroke to include CTA of the head and neck. These studies are normal and the patient has improvement after receiving 1 liter of saline IV. A second liter is hung and she is treated for UTI with rocephin as well. I have asked our hospitalist Dr. Wilkerson to put the patient into the hospital to complete a stroke work up and treat the UTI and dehydration. He recommends treatment of the systolic blood pressure over 200 and we have administered a dose of metoprolol 5mg IV. Departure - Departure Disposition: 66 [facility] DC/Xfer Clinical Impression: Dehydration Cerebrovascular accident (CVA) Qualifiers: CVA mechanism: other Qualified Code(s): I63.89 - Other cerebral infarction Urinary tract infection Qualifiers: Urinary tract infection type: acute cystitis Hematuria presence: without hematuria Qualified Code(s): N30.00 - Acute cystitis without hematuria Condition: Stable
[2020-06-24 04:43] LABS: BASOPHILS % (AUTO) 1.1 %; EOSINOPHILS % (AUTO) 3.3 %; HGB - HEMOGLOBIN 13.1 g/dL (12.0-16.0); LYMPHOCYTES % (AUTO) 49.7 %; MEAN CORPUSCULAR HEMOGLOBIN 30.4 pg (27.0-31.0); MEAN CORPUSCULAR HGB CONC 33.6 g/dL (32.0-36.0); MEAN CORPUSCULAR VOLUME 90.5 fL (81.0-99.0); MEAN PLATELET VOLUME 8.5 fL (7.9-10.8); MONOCYTES % (AUTO) 8.5 %; PLT - PLATELET COUNT 449 10^3/uL (130-450); RED BLOOD COUNT 4.31 10^6/uL (4.20-5.40); RED CELL DISTRIBUTION WIDTH 12.8 % (12.0-15.0); WHITE BLOOD COUNT 10.3 x10^3/uL (4.8-10.8)
[2020-06-24 04:45] LABS: ABNORMAL LYMPHS % (MANUAL) 0 %; BAND NEUTROPHILS % (MANUAL) 0 %
[2020-06-24 04:48] LABS: BILIRUBIN,URINE NEGATIVE (NEGATIVE); GLUCOSE, URINE (UA) 100 mg/dL (NEGATIVE); KETONES,URINE (UA) NEGATIVE (NEGATIVE); LEUKOCYTE ESTERASE, URINE SMALL (NEGATIVE); NITRITE,URINE NEGATIVE (NEGATIVE); OCCULT BLOOD,URINE NEGATIVE (NEGATIVE); PROTEIN,URINE 100 mg/dL (NEGATIVE); UROBILINOGEN,URINE 0.2 (NORMAL) E.U./dL (NORMAL)
[2020-06-24 04:51] LABS: CLARITY,URINE HAZY (CLEAR)
[2020-06-24 04:53] LABS: ALBUMIN 4.3 g/dL (3.2-5.5); BILIRUBIN,TOTAL 0.8 mg/dL (0.2-1.0); CALCIUM 9.2 mg/dL (8.5-10.3); CREATININE 0.6 mg/dL (0.4-1.0); TOTAL PROTEIN 8.4 g/dL (6.7-8.2)
[2020-06-24] MEDS ORDERED: IOVERSOL 320 100 ML VIAL IVP ONE ×2 (04:54→05:38)
[2020-06-24 05:11] LABS: RBC,URINE 0-5 /HPF (0-5)
[2020-06-24 05:12] LABS: BACTERIA,URINE Many /HPF (None Seen); SQUAMOUS EPITHELIAL CELL,UR FEW Squamous (<= Few)
[2020-06-24 05:23] LABS: BASOPHILS # (MANUAL) 0.1 10^3/uL (0-0.1); BASOPHILS % (MANUAL) 1 %; DIFFERENTIAL COMMENT MANUAL DIFFERENTIAL; EOSINOPHILS # (MANUAL) 0.4 10^3/uL (0-0.7); LYMPHOCYTES % (MANUAL) 26 %; MONOCYTES # (MANUAL) 0.5 10^3/uL (0.0-1.0); PLATELET ESTIMATE, MANUAL NORMAL (130-450,000) (NORMAL); RBC MORPHOLOGY (MULTIPLE) NORMAL APPEARANCE (NORMAL)
[2020-06-24 05:50] LABS: C. PNEUMONIAE- RESP PCR PANEL NOT DETECTED
[2020-06-24] MEDS ORDERED: cefTRIAXone 1 GM in SODIUM CHLORIDE 0.9% MINIBAG 100 ML IV STA (06:18)
[2020-06-24] MEDS ORDERED: cefTRIAXone 1 GM VIAL ONE (06:32)
[2020-06-24] MEDS ORDERED: ACETAMINOPHEN 325 MG TABLET PO PRN (06:49)
[2020-06-24] MEDS ORDERED: ONDANSETRON 4 MG/2 ML VIAL IVP PRN (06:49)
[2020-06-24] MEDS ORDERED: METOPROLOL 5 MG/5 ML VIAL IVP STA (06:52)
[2020-06-24] MEDS: SODIUM CHLORIDE 0.9% 1,000 ML IV SCH ×2 (07:00→18:25)
[2020-06-24 07:16] LABS: CHOL/HDL RATIO 5.6 (<4.4); CHOLESTEROL 289 mg/dL; HDL CHOLESTEROL 52 mg/dL; LDL CHOLESTEROL,CALCULATED 202 mg/dL; LDL/HDL RATIO 3.9 (<4.4); VLDL CHOLESTEROL 35 mg/dL
--- NOTE | 2020-06-24 08:19 | CT Report ---
PROCEDURE: ANGIO HEAD W/WO INDICATIONS: R sided weakness CONTRAST: IV CONTRAST: Optiray 320 ml: 80 PO CONTRAST: *NO PO CONTRAST TECHNIQUE: Precontrast 4.5 mm thick angled axial sections acquired from the foramen magnum to the vertex. Afte r the administration of intravenous contrast, 1 mm thick sections acquired through the [place] of [place] is. Postcontrast 4.5 mm thick sections then re-acquired from the foramen magnum to the vertex. 3-di mensional pvatpzx-xzobdcbgr-qwxjrqgduy (MIP) and/or volume rendering reformats were acquired of the c entral intracranial vasculature. For radiation dose reduction, the following was used: automated ex posure control, adjustment of mA and/or kV according to patient size. COMPARISON: None FINDINGS: Image quality: Excellent. Anterior circulation: Intracranial internal carotid arteries are normal in size and flow. The flow within the paired anterior cerebral arteries is normal and symmetric. The flow within the middle cer ebral arteries is normal and symmetric. The anterior communicating artery is seen. No aneurysms are seen. Posterior circulation: Visualized portions of the vertebral arteries demonstrate normal caliber, and join to form a normal appearing basilar artery. Flow within the posterior cerebral arteries is norm al and symmetric. No aneurysms are seen. CSF spaces: Ventricles are normal in size and shape. Basal cisterns are patent. No extra-axial flu id collections. Brain: No midline shift. No intracranial bleeds or masses. Tellez-white matter interface appears int act. Skull and face: Calvarium and facial bones appear intact, without suspicious lesions. Sinuses: Visualized sinuses and mastoids are clear. IMPRESSION: No abnormality found. Findings are consistent with the preliminary interpretation. Reviewed by: David Velazco MD on 06/24/2020 8:18 AM PST Approved by: David Velazco MD on 06/24/2020 8:18 AM PST Station ID: [id number]
--- NOTE | 2020-06-24 08:22 | CT Report ---
PROCEDURE: ANGIO NECK W INDICATIONS: R sided weakness CONTRAST: IV CONTRAST: Optiray 320 ml: 80 PO CONTRAST: *NO PO CONTRAST TECHNIQUE: After the administration of intravenous contrast, 1.5 mm axial sections acquired from the aortic arch to the [place] of [place]. Coronal 3-D maximum intensity projection (MIP) and/or volume rendering ref ormats were then performed. For radiation dose reduction, the following was used: automated exposur e control, adjustment of mA and/or kV according to patient size. COMPARISON: None. FINDINGS: Image quality: Excellent. Carotid system: The great vessels demonstrate a conventional anatomy as they arise from the aortic a [facility]. The origins of the common carotid arteries appear patent. The common carotid arteries demonstr ate normal calibers and courses. The bifurcation regions appear normal bilaterally. The internal ca rotid arteries demonstrate normal caliber and course. Posterior circulation: The origins of the vertebral arteries appear patent. The more superior porti ons of the vertebral arteries demonstrate normal course and caliber. They join to form a normal appe aring basilar artery. Soft tissues: Visualized neck soft tissues demonstrate no suspicious abnormalities. The thyroid gla nd is normal in size. Bones: No suspicious bony lesions. Visualized cervical spine appears normally aligned. IMPRESSION: Normal for age, source of current symptoms is not seen. The findings are consistent with the preliminary interpretation. The estimate of stenosis included in the report of the imaging study was calculated using the NASCET method Reviewed by: David Velazco MD on 06/24/2020 8:21 AM PST Approved by: David Velazco MD on 06/24/2020 8:21 AM PST Station ID: [id number]
[2020-06-24] MEDS ORDERED: ASPIRIN CHEW 81 MG TABLET PO STA (08:42)
[2020-06-24] MEDS: FELODIPINE ER 2.5 MG TABLET PO SCH (08:58)
[2020-06-24] MEDS: PANTOPRAZOLE 40 MG VIAL IVP SCH (08:58)
[2020-06-24] MEDS: SODIUM CHLORIDE FLUSH 0.9% 10 ML SYRINGE IVP SCH ×2 (08:59→17:44)
[2020-06-24] MEDS ORDERED: lisinopriL 20 MG TABLET PO SCH (09:00)
[2020-06-24 09:16] LABS: INR 1.1 (0.8-1.2); PT - PROTHROMBIN TIME 12.2 secs (9.9-12.6)
[2020-06-24] MEDS ORDERED: ATORVASTATIN 40 MG TABLET PO ONE (09:30)
--- NOTE | 2020-06-24 09:51 | PHARMACY PROGRESS NOTE ---
- Best Possible Medication History Admit Date and Time: 06/24/20 0649 Processed by: Pharmacy Medication History completed: Yes Patient Interview: Pt unable to participate Secondary Source(s): Physician records, Pharmacy records, Insurance records As the person ultimately responsible for medication therapy, providers are able to order a medication from an existing home medication list in [facility] via the "Reconcile Routine" prior to Confirmation of that medication by community support associate. Such practice is discouraged except when the physician, in their clinical judgment, deems that a medical need exists for a medication without regard to previous use.
[2020-06-24] MEDS: lisinopriL 20 MG TABLET PO SCH ×2 (10:25→20:42)
--- NOTE | 2020-06-24 10:44 | MRI Report ---
PROCEDURE: Brain W/O INDICATIONS: right-sided weakness TECHNIQUE: Noncontrast axial T1 spin echo, axial T2 fast spin echo, sagittal and axial FLAIR, coronal T2 fast sp in echo, axial gradient echo, axial diffusion and ADC through the brain. COMPARISON: Correlation is made with head CT angiogram, 06/24/2020. FINDINGS: Image quality: Excellent. CSF Spaces: Basal cisterns are patent. No extra-axial fluid collections. Ventricles are normal in size and shape. Brain: Focal abnormal increased diffusion-weighted signal can be seen within the medial left frontal lobe posteriorly, as on series 906 images 12 through 14. There is associated dark signal seen on the ADC map. There is developing FLAIR signal seen at this site. No intracranial masses or hemorrhage. Tellez/white matter interface is normal. Brainstem appears norm al. Brain parenchymal volume loss is seen. Chronic small vessel ischemic changes are seen. No chroni c ischemic insults. Normal intravascular flow voids are present. Incidental note is made of a cavum of septum pellucidum. This is of likely no clinical consequence, when incidentally discovered in iso lation. Skull and face: Calvarium has normal marrow signal. Orbits appear normal. A left lens replacement i s incidentally noted. Sinuses: Sinuses and mastoids are clear. IMPRESSION: Subacute infarction involving the medial left frontal lobe posteriorly. Reviewed by: Fredrick Cavanaugh MD on 06/24/2020 9:42 AM [facility] Approved by: Fredrick Cavanaugh MD on 06/24/2020 9:42 AM [facility] Station ID: [id number]
[2020-06-24 12:08] LABS: HEMOGLOBIN A1c% 7.6 % (4.27-6.07)
[2020-06-24] MEDS: FENOFIBRATE 48 MG TABLET PO SCH (12:25)
[2020-06-24] MEDS: INSULIN ASPART 300 UNIT/3 ML PEN SUBQ SCH ×3 (12:26→21:07)
--- NOTE | 2020-06-24 18:17 | HISTORY & PHYSICAL EXAMINATION ---
DATE OF SERVICE: 06/24/2020 Physician: Sarah Tinajero MD HISTORY OF PRESENT ILLNESS: This is a 79-year-old female of [place] descent who has a history of diabetes, on oral agent, and hypertension. She reports that two of her medications ran out, and she has been unable to obtain refills from her pharmacy and has been without one of her blood pressure meds and her diabetic oral pill for approximately two weeks. The patient is normally very active, cuts the grass around her house, and even climbs on the roof to clean the gutters. Last night, she went to bed at 8 p.m. and woke up at about 9:30 p.m. noticing that her right arm and right leg were weak. She tried to walk to the bathroom and was able to bear weight, but stated that they felt "very loose." She took some aspirin because of this and fell back asleep. She then woke up at 2:00 a.m. this morning and stated that there was even more weakness of the right arm and leg, and therefore called for her daughter, who lives in her same house, to be brought to the emergency room, which she was. In the emergency room, she stated that her right side was also numb but that the weakness was getting better. It had not resolved completely. Her last known well, therefore, was approximately 8-9 hours previously. She underwent CT head and CTA head and neck in the emergency room, and there were no findings of stroke or hemorrhage or any significant occlusions. She is being placed in observation to manage TIA versus CVA. PAST MEDICAL HISTORY: Diabetes, on oral medications; hypertension, depression, DJD, eczema, cataracts. ALLERGIES: None. MEDICATIONS 1. Felodipine ER 10 mg daily. 2. Lisinopril 20 mg b.i.d. 3. Potassium chloride 10 mEq t.i.d. 4. Meclizine p.r.n. 5. HCTZ 25 mg daily. 6. Glipizide 10 mg every morning. FAMILY HISTORY: Possible diabetes in the family, otherwise no inherited diseases. SOCIAL HISTORY: The patient never smoked, drinks no alcohol, no illicit drug use. The patient is a for about the last one year. She lives with her adult daughter, who was never . She is extremely active around the house and even does lawn work. REVIEW OF SYSTEMS: She has never had any cardiac history, neurologic history or major surgeries. There has been no recent cardiopulmonary complaints, syncope, leg edema. She does admit to being noncompliant with medications that she ran out of it for about two weeks. She has not yet established with a new PCP since Dr. Reed left his practice about a month ago. A comprehensive review of systems was performed and the pertinent positives are listed, the rest are negative. PHYSICAL EXAM GENERAL: Elderly [place]ese female who appears much younger than her age. VITAL SIGNS: Blood pressure in the Emergency Room was 205/84. She received Lopressor IV x1, and the blood pressure is now running 180s/80s,. Her heart rate is in the 80s-90s in sinus rhythm, afebrile, room air saturation 96%. HEENT: Reveals moist oral mucosa. She has upper dentures. NECK: Shows no JVD in a vertical position. There are no carotid bruits. HEART: Normal heart sounds. No murmur, rub, or gallop. CHEST: Clear lung corado. ABDOMEN: Soft, nontender. No organomegaly. EXTREMITIES: No clubbing, cyanosis, or edema. NEUROLOGIC: She has 3/5 strength of the right arm and right leg. She has drift of the right arm when extended. Her extraocular movements are intact. LABORATORY DATA: Normal CBC entirely. Normal INR of 1.1. Sodium 139, potassium 3.3, BUN 11, creatinine 0.6, glucose is 215, hemoglobin A1c 7.6. Lactic acid normal at 1.6. Liver tests normal. Fasting lipids were done and triglycerides were 175, total cholesterol 289, LDL 202, HDL 52. Lipase normal at 49. Urinalysis had a pH of 7, high protein, high glucose, small leukocyte esterase, high white blood cells and many bacteria. She had a nasal swab done and has kong virus negative findings, as well as other viruses negative. Chest x-ray was not done. Head CT and head and neck CTA were read as having no significant stenoses, no suspicious bony lesions, no evidence of stroke or hemorrhage or midline shift. EKG: Normal sinus rhythm at a rate of 77, LVH with strain pattern. There is an EKG from approximately two years ago that is similar. IMPRESSION/DIAGNOSES 1. Transient ischemic attack versus cerebrovascular accident. 2. Hypertension, uncontrolled. 3. Diabetes mellitus. 4. Abnormal EKG. 5. Hyperlipidemia. 6. Medical noncompliance. 7. Abnormal urinalysis, suggestive of UTI. PLAN: Admit the patient in Observation status for further evaluation of the neurologic deficit. Start telemetry to watch for atrial fibrillation. Start an IV for venous access. Obtain a troponin. Obtain an Echo with saline study to rule out intracardiac shunt or intracardiac clot. Obtain a brain MRI. If there are findings suggesting completion of a stroke, then she will be admitted to full Inpatient status. Begin evaluation with physical therapy and occupational therapy. Begin a carb-controlled diet, hold her oral diabetic pill, but begin sliding scale regular insulin coverage. Administer Lipitor quickly and administer aspirin if not already done so and then start daily baby aspirin. The patient will need control of her LDL with continued statin and also begin fenofibrate for control of the high triglycerides. We will allow permissive hypertension in this phase of a TIA versus cerebrovascular accident to systolic blood pressures of about 180. Will eventually resume her lisinopril and felodipine for blood pressure control, hold the HCTZ. Adjust her diet in order to not have to cut her food (with the weak R hand), and obtain OT evaluation for further management of her deficit. She has urinary frequency symptoms and an abnormal urinalysis suggesting a UTI, therefore, send urine for culture and start empiric antibiotic treatment. DEEP VENOUS THROMBOSIS PROPHYLAXIS: SCDs. CODE STATUS: DNR. ATTESTATION: Patient is expected to be discharged or transferred to another facility within 96 hours: Yes. cc: Kyrie Reed MD TD: 06/24/2020 17:24 [facility]
[2020-06-24] MEDS ORDERED: SODIUM CHLORIDE 0.9% 1,000 ML IV SCH (19:02)
[2020-06-25] MEDS: SODIUM CHLORIDE FLUSH 0.9% 10 ML SYRINGE IVP SCH ×4 (00:18→21:14)
[2020-06-25 04:29] LABS: BASOPHILS # (AUTO) 0.1 10^3/uL (0.0-0.1); BASOPHILS % (AUTO) 0.7 %; EOSINOPHILS # (AUTO) 0.2 10^3/uL (0.0-0.7); EOSINOPHILS % (AUTO) 2.6 %; HGB - HEMOGLOBIN 12.4 g/dL (12.0-16.0); LYMPHOCYTES # (AUTO) 3.3 10^3/uL (1.5-3.5); MEAN CORPUSCULAR HEMOGLOBIN 30.7 pg (27.0-31.0); MEAN CORPUSCULAR HGB CONC 33.5 g/dL (32.0-36.0); MEAN CORPUSCULAR VOLUME 91.6 fL (81.0-99.0); MEAN PLATELET VOLUME 8.7 fL (7.9-10.8); MONOCYTES # (AUTO) 0.6 10^3/uL (0.0-1.0); MONOCYTES % (AUTO) 7.1 %; NEUTROPHILS # (AUTO) 4.5 10^3/uL (1.5-6.6); NEUTROPHILS % (AUTO) 51.4 %; PLT - PLATELET COUNT 430 10^3/uL (130-450); RED BLOOD COUNT 4.04 10^6/uL (4.20-5.40); RED CELL DISTRIBUTION WIDTH 13.1 % (12.0-15.0); WHITE BLOOD COUNT 8.7 x10^3/uL (4.8-10.8)
[2020-06-25 04:41] LABS: CALCIUM 8.8 mg/dL (8.5-10.3); CREATININE 0.6 mg/dL (0.4-1.0); MAGNESIUM 2.1 mg/dL (1.7-2.8)
[2020-06-25] MEDS ORDERED: POTASSIUM CHLORIDE 20 MEQ TABLET PO ONE (06:56)
[2020-06-25] MEDS: PANTOPRAZOLE 40 MG VIAL IVP SCH (07:00)
[2020-06-25] MEDS: lisinopriL 20 MG TABLET PO SCH ×2 (08:06→21:04)
[2020-06-25] MEDS: FELODIPINE ER 2.5 MG TABLET PO SCH ×2 (08:09→08:11)
[2020-06-25] MEDS: cefTRIAXone 1 GM in SODIUM CHLORIDE 0.9% MINIBAG 100 ML IV SCH (08:18)
[2020-06-25] MEDS: FENOFIBRATE 48 MG TABLET PO SCH (08:18)
[2020-06-25] MEDS: ASPIRIN EC 81 MG TABLET PO SCH (08:18)
[2020-06-25] MEDS: INSULIN ASPART 300 UNIT/3 ML PEN SUBQ SCH ×4 (08:19→21:04)
--- NOTE | 2020-06-25 14:07 | PROVIDER PROGRESS NOTE ---
Assessment/Plan - Problem List (1) Cerebrovascular accident (CVA) Qualifiers: CVA mechanism: other Qualified Code(s): I63.89 - Other cerebral infarction Assessment/Plan: There was no improvement in the right arm and leg weakness at about the 12-hour aysha. Yesterday she already had a brain MRI which confirmed a left hemisphere subacute stroke. She got 4 aspirin yesterday, is on daily aspirin now. She has been started on statin and antitriglyceride treatment. We are allowing permissive hypertension to systolic of 170 or 180 today. Eventually her BP meds will be resumed. PT and OT have started to work with her. They feel that she is a good candidate for aggressive inpatient neuro rehab. Social work and product [employer] are working on finding her a location to accept her for aggressive rehab (2) HTN (hypertension) Assessment/Plan: We are allowing permissive hypertension for the acute stroke, for several days. She was very hypertensive in the ER yesterday at greater than 200 systolic, and she did get Lisinopril yesterday. BP is running 170s systolic today. Hold parameters have been placed on her felodipine and lisinopril mfor now, to be eventually resumed. (3) Diabetes mellitus Assessment/Plan: She had run out of her oral antihyperglycemic for 2 weeks. A1c is 7.6. Here she is on carb controlled diet and sliding scale insulin coverage (4) Hypokalemia Assessment/Plan: Possibly related to her HCTZ use however this was the meds she ran out of at home. Replace. Follow BMP day (5) Hyperlipidemia associated with type 2 diabetes mellitus Assessment/Plan: She had elevated triglyceride level as well as elevated LDL. She received Lipitor maximum dose starting yesterday. She is also started on fenofibrate for triglyceride management. (6) E. coli UTI Assessment/Plan: She had abnormal urinalysis yesterday (High WBC, leukocyte Esterase positive, and many bacteria present on U/A) and did admit to having urinary frequency and has a history of many prior UTIs. She was started empirically on antibiotics which will be continued for a 5-day course. Awaiting the sensitivities on the E. coli growing in the urine cx to tailor antibx. - Current Meds Current Meds: Current Medications Generic Name Dose Route Start Last Admin Trade Name Freq PRN Reason Stop Dose Admin Aspirin 81 mg 06/25/20 09:00 06/25/20 08:18 Ecotrin PO 81 mg DAILY TAVO Administration Felodipine 10 mg 06/25/20 08:10 06/25/20 08:11 Plendil PO Not Given DAILY TAVO Fenofibrate 134 mg 06/24/20 12:00 06/25/20 08:18 Tricor PO 134 mg DAILY TAVO Administration Ceftriaxone Sodium 1 gm/ 100 mls @ 200 mls/hr 06/25/20 09:00 06/25/20 09:32 Sodium Chloride IV Infused DAILY TAVO Infusion Insulin Aspart 1 - 9 unit 06/24/20 21:00 06/25/20 12:11 Novolog SUBQ 5 unit 0800,1200,1700,2100 TAVO Administration Protocol Lisinopril 40 mg 06/24/20 10:00 06/25/20 08:06 Zestril PO Not Given BID TAVO Pantoprazole Sodium 40 mg 06/24/20 07:00 06/25/20 07:00 Protonix IVP 40 mg QDAC TAVO Administration Sodium Chloride 10 ml 06/24/20 09:00 06/25/20 08:24 Normal Saline Flush 0.9% IVP 10 ml 0100,0900,1700 TAVO Administration - Lab Result Fish Bone Diagrams: 06/25/20 04:25 06/25/20 04:25 - Additional Planning My Orders: My Active Orders 06/24/20 19:02 Sodium Chloride 0.9% [Normal Saline 0.9%] 1,000 ml IV TKO 06/25/20 08:10 Felodipine [Plendil] 10 mg PO DAILY 06/25/20 09:00 Aspirin EC [Ecotrin] 81 mg PO DAILY cefTRIAXone [Rocephin] 1 gm Sodium Chloride 0.9% Minibag [Normal Saline 0.9% Minibag] 100 ml IV DAILY 06/25/20 21:00 Atorvastatin [Lipitor] 80 mg PO QPM Subjective - Subjective Patient Reports: Other (Feels very weak and sleepy after working with PT and OT this morning.) Objective Vital Signs: Vital Signs - 24 hr 06/24/20 06/24/20 06/24/20 15:45 15:50 16:00 Temperature Heart Rate [ 98 98 Activity] Heart Rate [ 84 Radial] Heart Rate [ 93 93 Sitting] Heart Rate [ 87 87 Supine] Respiratory 18 Rate Blood Pressure 156/81 H 156/81 H [Activity] Blood Pressure 156/81 H [Right Brachial artery] Blood Pressure 159/91 H 159/91 H [Sitting] Blood Pressure 141/85 H 141/85 H [Supine] O2 Saturation 96 06/24/20 06/25/20 06/25/20 20:21 00:00 04:58 Temperature 36.8 C 36.7 C Heart Rate [ Activity] Heart Rate [ 82 65 87 Radial] Heart Rate [ Sitting] Heart Rate [ Supine] Respiratory 18 16 18 Rate Blood Pressure [Activity] Blood Pressure 135/72 H 126/67 147/73 H [Right Brachial artery] Blood Pressure [Sitting] Blood Pressure [Supine] O2 Saturation 95 95 100 06/25/20 06/25/20 08:00 12:00 Temperature Heart Rate [ Activity] Heart Rate [ 84 95 Radial] Heart Rate [ Sitting] Heart Rate [ Supine] Respiratory 23 16 Rate Blood Pressure [Activity] Blood Pressure 144/76 H 165/93 H [Right Brachial artery] Blood Pressure [Sitting] Blood Pressure [Supine] O2 Saturation 97 96 Oxygen O2 Source Room air I&O (Last 24 Hrs): Intake and Output Totals x24h 06/23/20 06/24/20 06/25/20 23:59 23:59 23:59 Intake Total 3161.667 340 Balance 3161.667 340 General: Alert, Oriented x3 HEENT: Mucous membr. moist/pink Neck: Supple, No JVD Neuro: Alert, Other (4/5 strength of R arm and leg continue) Cardiovascular: Regular rate Respiratory: No respiratory distress Abdomen: Soft Extremities: No edema - Results Results: Laboratory Results WBC 8.7 x10^3/uL (4.8-10.8) 06/25/20 04:25 RBC 4.04 10^6/uL (4.20-5.40) L 06/25/20 04:25 Hgb 12.4 g/dL (12.0-16.0) 06/25/20 04:25 Hct 37.0 % (37.0-47.0) 06/25/20 04:25 MCV 91.6 fL (81.0-99.0) 06/25/20 04:25 MCH 30.7 pg (27.0-31.0) 06/25/20 04:25 MCHC 33.5 g/dL (32.0-36.0) 06/25/20 04:25 RDW 13.1 % (12.0-15.0) 06/25/20 04:25 Plt Count 430 10^3/uL (130-450) 06/25/20 04:25 MPV 8.7 fL (7.9-10.8) 06/25/20 04:25 Neut # (Auto) 4.5 10^3/uL (1.5-6.6) 06/25/20 04:25 Lymph # (Auto) 3.3 10^3/uL (1.5-3.5) 06/25/20 04:25 [place] # (Auto) 0.6 10^3/uL (0.0-1.0) 06/25/20 04:25 Eos # (Auto) 0.2 10^3/uL (0.0-0.7) 06/25/20 04:25 Baso # (Auto) 0.1 10^3/uL (0.0-0.1) 06/25/20 04:25 Absolute Nucleated RBC 0.00 x10^3/uL 06/25/20 04:25 Total Counted 100 06/24/20 04:24 Band Neuts % (Manual) 0 % (0-10) 06/24/20 04:24 Reactive Lymphs % (Man) 3 % 06/24/20 04:24 Abnorm Lymph % (Manual) 0 % 06/24/20 04:24 Nucleated RBC % 0.0 /100WBC 06/25/20 04:25 Neutrophils # (Manual) 6.3 10^3/uL (1.5-6.6) 06/24/20 04:24 Lymphocytes # (Manual) 3.0 10^3/uL (1.5-3.5) 06/24/20 04:24 Monocytes # (Manual) 0.5 10^3/uL (0.0-1.0) 06/24/20 04:24 Eosinophils # (Manual) 0.4 10^3/uL (0-0.7) 06/24/20 04:24 Basophils # (Manual) 0.1 10^3/uL (0-0.1) 06/24/20 04:24 Differential Comment MANUAL DIFFERENTIAL 06/24/20 04:24 Platelet Estimate NORMAL (130-450,000) (NORMAL) 06/24/20 04:24 RBC Morph Micro Appear NORMAL APPEARANCE (NORMAL) 06/24/20 04:24 PT 12.2 secs (9.9-12.6) 06/24/20 04:32 INR 1.1 (0.8-1.2) 06/24/20 04:32 Sodium 137 mmol/L (135-145) 06/25/20 04:25 Potassium 3.2 mmol/L (3.5-5.0) L 06/25/20 04:25 Chloride 101 mmol/L (101-111) 06/25/20 04:25 Carbon Dioxide 24 mmol/L (21-32) 06/25/20 04:25 Anion Gap 12.0 (6-13) 06/25/20 04:25 BUN 12 mg/dL (6-20) 06/25/20 04:25 Creatinine 0.6 mg/dL (0.4-1.0) 06/25/20 04:25 Estimated GFR (MDRD) 96 (>89) 06/25/20 04:25 Glucose 218 mg/dL (70-100) H 06/25/20 04:25 POC Whole Bld Glucose 258 mg/dL (70 - 100) H 06/25/20 12:02 Estimat Average Glucose 171 mg/dL (70-100) H 06/24/20 04:32 Hemoglobin A1c % 7.6 % (4.27-6.07) H 06/24/20 04:32 Lactic Acid 1.6 mmol/L (0.5-2.2) 06/24/20 05:40 Calcium 8.8 mg/dL (8.5-10.3) 06/25/20 04:25 Magnesium 2.1 mg/dL (1.7-2.8) 06/25/20 04:25 Total Bilirubin 0.8 mg/dL (0.2-1.0) 06/24/20 04:24 AST 17 IU/L (10-42) 06/24/20 04:24 ALT 14 IU/L (10-60) 06/24/20 04:24 Alkaline Phosphatase 49 IU/L (42-121) 06/24/20 04:24 Troponin I High Sens 7.1 ng/L (2.3-14.8) 06/24/20 04:32 Total Protein 8.4 g/dL (6.7-8.2) H 06/24/20 04:24 Albumin 4.3 g/dL (3.2-5.5) 06/24/20 04:24 Globulin 4.1 g/dL (2.1-4.2) 06/24/20 04:24 Albumin/Globulin Ratio 1.0 (1.0-2.2) 06/24/20 04:24 Triglycerides 175 mg/dL (-149) H 06/24/20 04:32 Cholesterol 289 mg/dL (-199) H 06/24/20 04:32 LDL Cholesterol, Calc 202 mg/dL (-129) H 06/24/20 04:32 VLDL Cholesterol 35 mg/dL 06/24/20 04:32 HDL Cholesterol 52 mg/dL (60-) L 06/24/20 04:32 LDL/HDL Ratio 3.9 (<4.4) 06/24/20 04:32 Cholesterol/HDL Ratio 5.6 (<4.4) 06/24/20 04:32 Lipase 49 U/L (22-51) 06/24/20 04:24 Urine Color YELLOW 06/24/20 04:35 Urine Clarity HAZY (CLEAR) 06/24/20 04:35 Urine pH 7.0 PH (5.0-7.5) 06/24/20 04:35 Ur Specific [place] 1.020 (1.002-1.030) 06/24/20 04:35 Urine Protein 100 mg/dL (NEGATIVE) H 06/24/20 04:35 Urine Glucose (UA) 100 mg/dL (NEGATIVE) H 06/24/20 04:35 Urine Ketones NEGATIVE mg/dL (NEGATIVE) 06/24/20 04:35 Urine Occult Blood NEGATIVE (NEGATIVE) 06/24/20 04:35 Urine Nitrite NEGATIVE (NEGATIVE) 06/24/20 04:35 Urine Bilirubin NEGATIVE (NEGATIVE) 06/24/20 04:35 Urine Urobilinogen 0.2 (NORMAL) E.U./dL (NORMAL) 06/24/20 04:35 Ur Leukocyte Esterase SMALL (NEGATIVE) H 06/24/20 04:35 Urine RBC 0-5 /HPF (0-5) 06/24/20 04:35 Urine WBC 11-25 /HPF (0-5) H 06/24/20 04:35 Ur Squamous Epith Cells FEW Squamous (<= Few) 06/24/20 04:35 Urine Bacteria Many /HPF (None Seen) H 06/24/20 04:35 Ur Microscopic Review INDICATED 06/24/20 04:35 Urine Culture Comments INDICATED 06/24/20 04:35 Nasal Adenovirus (PCR) NOT DETECTED 06/24/20 04:49 Nasal B. parapertussis DNA (PCR) NOT DETECTED 06/24/20 04:49 Nasal Coronavir 229E PCR NOT DETECTED 06/24/20 04:49 Nasal Coronavir HKU1 PCR NOT DETECTED 06/24/20 04:49 Nasal Coronavir NL63 PCR NOT DETECTED 06/24/20 04:49 Nasal Coronavir OC43 PCR NOT DETECTED 06/24/20 04:49 Nasal Enterovir/Rhinovir PCR NOT DETECTED 06/24/20 04:49 Nasal Influenza B PCR NOT DETECTED 06/24/20 04:49 Nasal Influenza A PCR NOT DETECTED 06/24/20 04:49 Nasal Parainfluen 1 PCR NOT DETECTED 06/24/20 04:49 Nasal Parainfluen 2 PCR NOT DETECTED 06/24/20 04:49 Nasal Parainfluen 3 PCR NOT DETECTED 06/24/20 04:49 Nasal Parainfluen 4 PCR NOT DETECTED 06/24/20 04:49 Nasal RSV (PCR) NOT DETECTED 06/24/20 04:49 Nasal Screen MRSA (PCR) NEGATIVE (NEGATIVE) 06/24/20 07:38 Nasal B.pertussis DNA PCR NOT DETECTED 06/24/20 04:49 Nasal C.pneumoniae (PCR) NOT DETECTED 06/24/20 04:49 [place] Human Metapneumo PCR NOT DETECTED 06/24/20 04:49 Nasal M.pneumoniae (PCR) NOT DETECTED 06/24/20 04:49 Nasal SARS-CoV-2 (PCR) NOT DETECTED 06/24/20 04:49 - Procedures Procedures: Procedures REPLACEMENT OF LEFT LENS WITH SYNTH SUB, PERC APPROACH (02/11/16)
[2020-06-25] MEDS: ATORVASTATIN 40 MG TABLET PO SCH (21:03)
[2020-06-26 05:08] LABS: CALCIUM 9.5 mg/dL (8.5-10.3); CREATININE 0.6 mg/dL (0.4-1.0)
[2020-06-26 05:17] LABS: BASOPHILS # (AUTO) 0.1 10^3/uL (0.0-0.1); BASOPHILS % (AUTO) 0.9 %; EOSINOPHILS # (AUTO) 0.3 10^3/uL (0.0-0.7); EOSINOPHILS % (AUTO) 2.9 %; HGB - HEMOGLOBIN 12.4 g/dL (12.0-16.0); LYMPHOCYTES # (AUTO) 3.8 10^3/uL (1.5-3.5); LYMPHOCYTES % (AUTO) 44.2 %; MEAN CORPUSCULAR HEMOGLOBIN 30.2 pg (27.0-31.0); MEAN CORPUSCULAR HGB CONC 33.2 g/dL (32.0-36.0); MEAN CORPUSCULAR VOLUME 90.8 fL (81.0-99.0); MEAN PLATELET VOLUME 8.9 fL (7.9-10.8); MONOCYTES # (AUTO) 0.6 10^3/uL (0.0-1.0); MONOCYTES % (AUTO) 7.4 %; NEUTROPHILS # (AUTO) 3.7 10^3/uL (1.5-6.6); NEUTROPHILS % (AUTO) 44.2 %; PLT - PLATELET COUNT 456 10^3/uL (130-450); RED BLOOD COUNT 4.11 10^6/uL (4.20-5.40); WHITE BLOOD COUNT 8.5 x10^3/uL (4.8-10.8)
[2020-06-26] MEDS: PANTOPRAZOLE 40 MG VIAL IVP SCH (06:49)
[2020-06-26] MEDS: SODIUM CHLORIDE FLUSH 0.9% 10 ML SYRINGE IVP SCH ×2 (06:50→17:36)
[2020-06-26] MEDS: SODIUM CHLORIDE FLUSH 0.9% 10 ML SYRINGE IVP PRN (06:50)
[2020-06-26] MEDS: ASPIRIN EC 81 MG TABLET PO SCH (08:27)
[2020-06-26] MEDS: FELODIPINE ER 2.5 MG TABLET PO SCH (08:29)
[2020-06-26] MEDS: lisinopriL 20 MG TABLET PO SCH ×2 (08:30→20:25)
[2020-06-26] MEDS: FENOFIBRATE 48 MG TABLET PO SCH (08:32)
[2020-06-26] MEDS: cefTRIAXone 1 GM in SODIUM CHLORIDE 0.9% MINIBAG 100 ML IV SCH (08:32)
[2020-06-26] MEDS: INSULIN ASPART 300 UNIT/3 ML PEN SUBQ SCH ×4 (08:42→20:25)
--- NOTE | 2020-06-26 08:59 | PROVIDER PROGRESS NOTE ---
Assessment/Plan - Problem List (1) Cerebrovascular accident (CVA) Qualifiers: CVA mechanism: other Qualified Code(s): I63.89 - Other cerebral infarction Assessment/Plan: The plan is to continue with aggressive neuro rehab. She has been accepted and will be transferred to inpatient rehab tomorrow. Continue with daily aspirin. Continue with daily statin and fenofibrate Continue PT & OT while here (2) HTN (hypertension) Assessment/Plan: Blood pressure now runs 130s to 170s systolic. She is on her home dose of felodipine and lisinopril. The HCTZ was stopped, and will not be resumed, in order to prevent hypokalemia and dehydration. (3) Diabetes mellitus Assessment/Plan: She had run out of her home glipizide for 2 weeks. Her A1c was 7.6 here. She is on CCD diet and SS insulin coverage here. We will resume Glipizide today in preparation for discharge tomorrow (4) Hyperlipidemia associated with type 2 diabetes mellitus Assessment/Plan: He needs continued treatment of LDL and triglycerides. She is on statin and fenofibrate and will continue with the (5) E. coli UTI Assessment/Plan: She had urinary frequency at admission and her urinalysis was abnormal. The urine culture has grown E. coli. This E. coli is pansensitive. We will stop IV ceftriaxone, she got 3 doses. Will start oral levofloxacin tomorrow and complete a 7-day total course of antibiotics (6) Hypokalemia Assessment/Plan: This was caused by her HCTZ use. HCTZ stopped. Resolved with replacement. - Current Meds Current Meds: Current Medications Generic Name Dose Route Start Last Admin Trade Name Dustin PRN Reason Stop Dose Admin Aspirin 81 mg 06/25/20 09:00 06/26/20 08:27 Ecotrin PO 81 mg DAILY TAVO Administration Atorvastatin Calcium 80 mg 06/25/20 21:00 06/25/20 21:03 Lipitor PO 80 mg QPM TAVO Administration Felodipine 10 mg 06/25/20 08:10 06/26/20 08:29 Plendil PO 10 mg DAILY TAVO Administration Fenofibrate 144 mg 06/26/20 08:29 06/26/20 08:32 Tricor PO 144 mg DAILY TAVO Administration Insulin Aspart 2 - 10 unit 06/26/20 08:00 06/26/20 08:42 Novolog SUBQ 4 unit 0800,1200,1700,2100 TAVO Administration Protocol Lisinopril 40 mg 06/24/20 10:00 06/26/20 08:30 Zestril PO 40 mg BID TAVO Administration Pantoprazole Sodium 40 mg 06/24/20 07:00 06/26/20 06:49 Protonix IVP 40 mg QDAC TAVO Administration Sodium Chloride 10 ml 06/24/20 06:49 06/26/20 06:50 Normal Saline Flush 0.9% IVP 10 ml PRN PRN Administration NEEDED PER PROVIDER ORDERS Sodium Chloride 10 ml 06/24/20 09:00 06/26/20 06:50 Normal Saline Flush 0.9% IVP 10 ml 0100,0900,1700 TAVO Administration - Lab Result Fish Bone Diagrams: 06/26/20 04:43 06/26/20 04:43 - Additional Planning My Orders: My Active Orders 06/25/20 08:10 Felodipine [Plendil] 10 mg PO DAILY 06/25/20 09:00 Aspirin EC [Ecotrin] 81 mg PO DAILY 06/25/20 21:00 Atorvastatin [Lipitor] 80 mg PO QPM 06/26/20 08:00 Insulin Aspart [NovoLOG] 2 - 10 unit SUBQ 0800,1200,1700,2100 06/26/20 08:18 Blood Glucose Checks - Eating [RC] 0800,1200,1700,2100 Initiate Hypoglycemia Protocol [RC] .protocol 06/26/20 08:29 Fenofibrate [Tricor] 144 mg PO DAILY 06/26/20 08:55 Meclizine HCl [Antivert] 25 mg PO TID PRN 06/26/20 09:00 Glipizide [Glipizide ER] 10 mg PO QDBREAKFAST 06/27/20 08:00 levoFLOXacin [Levaquin] 750 mg PO DAILY Subjective - Subjective Patient Reports: Other (Unchanged weakness of R arm and R leg, but feels stronger in R shoulder) Objective Vital Signs: Vital Signs - 24 hr 06/25/20 06/25/20 06/25/20 12:00 16:00 16:24 Temperature 36.9 C Heart Rate [ 95 72 76 Radial] Respiratory 16 17 19 Rate Blood Pressure 165/93 H 138/75 H [Right Brachial artery] O2 Saturation 96 99 97 06/25/20 06/25/20 06/26/20 21:00 23:28 00:00 Temperature 36.8 C Heart Rate [ 78 69 63 Radial] Respiratory 20 18 16 Rate Blood Pressure 166/76 H 131/59 H 142/69 H [Right Brachial artery] O2 Saturation 95 96 06/26/20 06/26/20 06:53 08:00 Temperature 37.2 C 36.8 C Heart Rate [ 75 82 Radial] Respiratory 18 16 Rate Blood Pressure 155/75 H 184/92 H [Right Brachial artery] O2 Saturation 97 98 Oxygen O2 Source Room air I&O (Last 24 Hrs): Intake and Output Totals x24h 06/24/20 06/25/20 06/26/20 23:59 23:59 23:59 Intake Total 3161.667 690 150 Balance 3161.667 690 150 General: Alert, Oriented x3 HEENT: EOMI, Mucous membr. moist/pink Neck: Supple, No JVD, No thyromegaly Neuro: Alert, Other ( R hand 3/5, R foot 4/5 strength) Cardiovascular: Regular rate Respiratory: No respiratory distress Abdomen: Soft Extremities: No edema - Results Results: Laboratory Results WBC 8.5 x10^3/uL (4.8-10.8) 06/26/20 04:43 RBC 4.11 10^6/uL (4.20-5.40) L 06/26/20 04:43 Hgb 12.4 g/dL (12.0-16.0) 06/26/20 04:43 Hct 37.3 % (37.0-47.0) 06/26/20 04:43 MCV 90.8 fL (81.0-99.0) 06/26/20 04:43 MCH 30.2 pg (27.0-31.0) 06/26/20 04:43 MCHC 33.2 g/dL (32.0-36.0) 06/26/20 04:43 RDW 13.0 % (12.0-15.0) 06/26/20 04:43 Plt Count 456 10^3/uL (130-450) H 06/26/20 04:43 MPV 8.9 fL (7.9-10.8) 06/26/20 04:43 Neut # (Auto) 3.7 10^3/uL (1.5-6.6) 06/26/20 04:43 Lymph # (Auto) 3.8 10^3/uL (1.5-3.5) H 06/26/20 04:43 [place] # (Auto) 0.6 10^3/uL (0.0-1.0) 06/26/20 04:43 Eos # (Auto) 0.3 10^3/uL (0.0-0.7) 06/26/20 04:43 Baso # (Auto) 0.1 10^3/uL (0.0-0.1) 06/26/20 04:43 Absolute Nucleated RBC 0.00 x10^3/uL 06/26/20 04:43 Total Counted 100 06/24/20 04:24 Band Neuts % (Manual) 0 % (0-10) 06/24/20 04:24 Reactive Lymphs % (Man) 3 % 06/24/20 04:24 Abnorm Lymph % (Manual) 0 % 06/24/20 04:24 Nucleated RBC % 0.0 /100WBC 06/26/20 04:43 Neutrophils # (Manual) 6.3 10^3/uL (1.5-6.6) 06/24/20 04:24 Lymphocytes # (Manual) 3.0 10^3/uL (1.5-3.5) 06/24/20 04:24 Monocytes # (Manual) 0.5 10^3/uL (0.0-1.0) 06/24/20 04:24 Eosinophils # (Manual) 0.4 10^3/uL (0-0.7) 06/24/20 04:24 Basophils # (Manual) 0.1 10^3/uL (0-0.1) 06/24/20 04:24 Differential Comment MANUAL DIFFERENTIAL 06/24/20 04:24 Platelet Estimate NORMAL (130-450,000) (NORMAL) 06/24/20 04:24 RBC Morph Micro Appear NORMAL APPEARANCE (NORMAL) 06/24/20 04:24 PT 12.2 secs (9.9-12.6) 06/24/20 04:32 INR 1.1 (0.8-1.2) 06/24/20 04:32 Sodium 139 mmol/L (135-145) 06/26/20 04:43 Potassium 4.0 mmol/L (3.5-5.0) 06/26/20 04:43 Chloride 102 mmol/L (101-111) 06/26/20 04:43 Carbon Dioxide 24 mmol/L (21-32) 06/26/20 04:43 Anion Gap 13.0 (6-13) 06/26/20 04:43 BUN 15 mg/dL (6-20) 06/26/20 04:43 Creatinine 0.6 mg/dL (0.4-1.0) 06/26/20 04:43 Estimated GFR (MDRD) 96 (>89) 06/26/20 04:43 Glucose 220 mg/dL (70-100) H 06/26/20 04:43 POC Whole Bld Glucose 182 mg/dL (70 - 100) H 06/26/20 08:09 Estimat Average Glucose 171 mg/dL (70-100) H 06/24/20 04:32 Hemoglobin A1c % 7.6 % (4.27-6.07) H 06/24/20 04:32 Lactic Acid 1.6 mmol/L (0.5-2.2) 06/24/20 05:40 Calcium 9.5 mg/dL (8.5-10.3) 06/26/20 04:43 Magnesium 2.1 mg/dL (1.7-2.8) 06/25/20 04:25 Total Bilirubin 0.8 mg/dL (0.2-1.0) 06/24/20 04:24 AST 17 IU/L (10-42) 06/24/20 04:24 ALT 14 IU/L (10-60) 06/24/20 04:24 Alkaline Phosphatase 49 IU/L (42-121) 06/24/20 04:24 Troponin I High Sens 7.1 ng/L (2.3-14.8) 06/24/20 04:32 Total Protein 8.4 g/dL (6.7-8.2) H 06/24/20 04:24 Albumin 4.3 g/dL (3.2-5.5) 06/24/20 04:24 Globulin 4.1 g/dL (2.1-4.2) 06/24/20 04:24 Albumin/Globulin Ratio 1.0 (1.0-2.2) 06/24/20 04:24 Triglycerides 175 mg/dL (-149) H 06/24/20 04:32 Cholesterol 289 mg/dL (-199) H 06/24/20 04:32 LDL Cholesterol, Calc 202 mg/dL (-129) H 06/24/20 04:32 VLDL Cholesterol 35 mg/dL 06/24/20 04:32 HDL Cholesterol 52 mg/dL (60-) L 06/24/20 04:32 LDL/HDL Ratio 3.9 (<4.4) 06/24/20 04:32 Cholesterol/HDL Ratio 5.6 (<4.4) 06/24/20 04:32 Lipase 49 U/L (22-51) 06/24/20 04:24 Urine Color YELLOW 06/24/20 04:35 Urine Clarity HAZY (CLEAR) 06/24/20 04:35 Urine pH 7.0 PH (5.0-7.5) 06/24/20 04:35 Ur Specific [place] 1.020 (1.002-1.030) 06/24/20 04:35 Urine Protein 100 mg/dL (NEGATIVE) H 06/24/20 04:35 Urine Glucose (UA) 100 mg/dL (NEGATIVE) H 06/24/20 04:35 Urine Ketones NEGATIVE mg/dL (NEGATIVE) 06/24/20 04:35 Urine Occult Blood NEGATIVE (NEGATIVE) 06/24/20 04:35 Urine Nitrite NEGATIVE (NEGATIVE) 06/24/20 04:35 Urine Bilirubin NEGATIVE (NEGATIVE) 06/24/20 04:35 Urine Urobilinogen 0.2 (NORMAL) E.U./dL (NORMAL) 06/24/20 04:35 Ur Leukocyte Esterase SMALL (NEGATIVE) H 06/24/20 04:35 Urine RBC 0-5 /HPF (0-5) 06/24/20 04:35 Urine WBC 11-25 /HPF (0-5) H 06/24/20 04:35 Ur Squamous Epith Cells FEW Squamous (<= Few) 06/24/20 04:35 Urine Bacteria Many /HPF (None Seen) H 06/24/20 04:35 Ur Microscopic Review INDICATED 06/24/20 04:35 Urine Culture Comments INDICATED 06/24/20 04:35 Nasal Adenovirus (PCR) NOT DETECTED 06/24/20 04:49 Nasal B. parapertussis DNA (PCR) NOT DETECTED 06/24/20 04:49 Nasal Coronavir 229E PCR NOT DETECTED 06/24/20 04:49 Nasal Coronavir HKU1 PCR NOT DETECTED 06/24/20 04:49 Nasal Coronavir NL63 PCR NOT DETECTED 06/24/20 04:49 Nasal Coronavir OC43 PCR NOT DETECTED 06/24/20 04:49 Nasal Enterovir/Rhinovir PCR NOT DETECTED 06/24/20 04:49 Nasal Influenza B PCR NOT DETECTED 06/24/20 04:49 Nasal Influenza A PCR NOT DETECTED 06/24/20 04:49 Nasal Parainfluen 1 PCR NOT DETECTED 06/24/20 04:49 Nasal Parainfluen 2 PCR NOT DETECTED 06/24/20 04:49 Nasal Parainfluen 3 PCR NOT DETECTED 06/24/20 04:49 Nasal Parainfluen 4 PCR NOT DETECTED 06/24/20 04:49 Nasal RSV (PCR) NOT DETECTED 06/24/20 04:49 Nasal Screen MRSA (PCR) NEGATIVE (NEGATIVE) 06/24/20 07:38 Nasal B.pertussis DNA PCR NOT DETECTED 06/24/20 04:49 Nasal C.pneumoniae (PCR) NOT DETECTED 06/24/20 04:49 [place] Human Metapneumo PCR NOT DETECTED 06/24/20 04:49 Nasal M.pneumoniae (PCR) NOT DETECTED 06/24/20 04:49 Nasal SARS-CoV-2 (PCR) NOT DETECTED 06/24/20 04:49 - Procedures Procedures: Procedures REPLACEMENT OF LEFT LENS WITH SYNTH SUB, PERC APPROACH (02/11/16)
[2020-06-26] MEDS ORDERED: MECLIZINE 12.5 MG TABLET PO PRN (09:02)
[2020-06-26 14:19] LABS: C. PNEUMONIAE- RESP PCR PANEL NOT DETECTED
[2020-06-26] MEDS: SACCHAROMYCES BOULARDII 250 MG CAPSULE PO SCH (17:36)
[2020-06-26] MEDS: ATORVASTATIN 40 MG TABLET PO SCH (20:25)
[2020-06-27 05:11] LABS: BASOPHILS # (AUTO) 0.1 10^3/uL (0.0-0.1); BASOPHILS % (AUTO) 0.8 %; EOSINOPHILS # (AUTO) 0.2 10^3/uL (0.0-0.7); EOSINOPHILS % (AUTO) 2.6 %; LYMPHOCYTES # (AUTO) 3.5 10^3/uL (1.5-3.5); LYMPHOCYTES % (AUTO) 45.1 %; MEAN CORPUSCULAR HEMOGLOBIN 30.5 pg (27.0-31.0); MEAN CORPUSCULAR HGB CONC 33.1 g/dL (32.0-36.0); MEAN CORPUSCULAR VOLUME 92.1 fL (81.0-99.0); MEAN PLATELET VOLUME 8.7 fL (7.9-10.8); MONOCYTES # (AUTO) 0.6 10^3/uL (0.0-1.0); MONOCYTES % (AUTO) 7.5 %; NEUTROPHILS # (AUTO) 3.4 10^3/uL (1.5-6.6); NEUTROPHILS % (AUTO) 43.6 %; PLT - PLATELET COUNT 434 10^3/uL (130-450); RED BLOOD COUNT 3.93 10^6/uL (4.20-5.40); RED CELL DISTRIBUTION WIDTH 13.1 % (12.0-15.0); WHITE BLOOD COUNT 7.8 x10^3/uL (4.8-10.8)
[2020-06-27 05:20] LABS: CALCIUM 9.1 mg/dL (8.5-10.3); CREATININE 0.6 mg/dL (0.4-1.0)
[2020-06-27] MEDS: SODIUM CHLORIDE FLUSH 0.9% 10 ML SYRINGE IVP PRN (06:19)
[2020-06-27] MEDS: SODIUM CHLORIDE FLUSH 0.9% 10 ML SYRINGE IVP SCH ×2 (06:19→08:16)
[2020-06-27] MEDS: PANTOPRAZOLE 40 MG VIAL IVP SCH (06:19)
[2020-06-27] MEDS ORDERED: levoFLOXacin 250 MG TABLET PO SCH (08:00)
[2020-06-27] MEDS: lisinopriL 20 MG TABLET PO SCH (08:01)
[2020-06-27] MEDS: FELODIPINE ER 2.5 MG TABLET PO SCH (08:01)
[2020-06-27] MEDS: ASPIRIN EC 81 MG TABLET PO SCH (08:15)
[2020-06-27] MEDS: SACCHAROMYCES BOULARDII 250 MG CAPSULE PO SCH (08:15)
[2020-06-27] MEDS: FENOFIBRATE 48 MG TABLET PO SCH (08:16)
[2020-06-27] MEDS: INSULIN ASPART 300 UNIT/3 ML PEN SUBQ SCH ×2 (08:17→12:13)
--- NOTE | 2020-06-27 08:17 | Discharge Plan ---
Discharge Plan Problem Reviewed?: Yes Disposition: 02 Transfer Acute Care Hosp Condition: Stable Prescriptions: Aspirin EC [Ecotrin] 81 mg PO DAILY #30 tablet Saccharomyces Boulardii [Florastor] 250 mg PO BIDWM #6 capsule Glipizide [Glipizide ER] 5 mg PO QDBREAKFAST #30 ea levoFLOXacin [Levaquin] 750 mg PO Q2D #6 tablet Atorvastatin Calcium [Lipitor] 80 mg PO QPM #30 tablet Fenofibrate Nanocrystallized [Tricor] 145 mg PO DAILY #30 tablet Diet: Diabetic (Low sodium, Low fat, Diabetic diet) Activity Restrictions: No Restrictions Shower Restrictions: No Driving Restrictions: Yes (No driving due to stroke with muscle weakness) Health Concerns: The patient was admitted with right arm and right leg weakness and has been diagnosed with a stroke. Medications have been adjusted slightly, please follow the new list of medications. Patient is also completing several more days of antibiotics (and probiotics) for a UTI. Patient is being transferred for aggressive inpatient neuro rehab, to recover from the stroke, before returning home. Plan of Treatment: As above. Care Goals: Improvement in symptoms and stabilization are the goals. Assessment: Patient and daughter understand and are agreeable with the plan. No Smoking: If you smoke, Please STOP! Call for help. Follow-up with: Kyrie Reed MD [Primary Care Provider] -
--- NOTE | 2020-06-27 08:40 | DISCHARGE SUMMARY ---
Discharge Summary Admit Date: 06/24/20 Discharge Date: 06/27/20 Discharging Provider: Dr Sarah Tinajero Primary Care Provider: Dr Lee Reed (or substitute) Code Status: Do Not Attempt Resuscitation Condition at Discharge: Fair Discharge Disposition: 02 Transfer Acute Care Hosp - [facility] History of Present Illness: This is a 79-year-old female of [place] descent who is active, mows her lawn and goes on the roof to clean her gutters, she has a history of diabetes on oral agent and hypertension. She ran out of 2 of her medicines (her Glipizide and a blood pressure medicine) 2 weeks ago and could not get refills. Last night she went to bed at 8 PM and woke up at 9:30 PM noticing that her right arm and right leg were weak. She tried to walk to the bathroom and said they felt "very loose". She took aspirin and fell back asleep. She then woke up at 2 AM this morning and said there was even more severe weakness of the right arm and leg and therefore called for her daughter, who lives with her, to take her to the emergency room. In the ER she said that the right side also had some numbness and that the weakness was getting slightly better, but it had not resolved completely. At this point it was about 8-9 hours from onset of symptoms. Alan chaney had a head CT and CTA head and neck in the ER. There are no findings of stroke or hemorrhage or any vascular occlusions that are severe. The patient has a blood pressure of 205/84, heart rate 80 in sinus rhythm. Her cranial nerves are intact, there is 3/5 strength of the R arm and R leg. She is being placed in Observation status for possible TIA, however will be Inpatient status if CVA. - HOSPITAL COURSE Hospital Course: (1) Cerebrovascular accident (CVA) There was no improvement in the right arm and leg weakness at the 24-hour aysha. She had a brain MRI done which confirmed a medial-left frontal lobe posterior subacute stroke. She received 4 baby aspirin and was started on daily aspirin 81 mg. She was also started on statin and hypertriglyceride treatment, for fasting lipid findings of Total cholesterol: 289 , LDL: 202 , Triglycerides: 175 , HDL: 52. Telemetry showed no Afib. An Echo showed normal LVEF, no intracardiac clot or shunt. We allowed permissive hypertension to systolic BPs of 170 - 180 for 2 days and resumed home BP med doses. PT and OT started to work with her. She was felt to be a good candidate for aggressive inpatient neuro rehab. She was accepted for transfer to Neuro Inpatient rehab at [facility], and was transferred there on 06/27/20 in stable condition by POV. Her COVID swab was done on 06/26/20 and was neg. (2) HTN (hypertension) We allowed permissive hypertension at 170-180 systolic for several days. We resumed her home doses of Lisinopril and Felodipine. Her home doses of HCTZ and KCl were not resumed. A low-salt diet was prescribed. (3) Diabetes mellitus She had run out of her oral Glipizide med for 2 weeks. Her A1c was 7.6 at admission. Here she was on carb-controlled diet and sliding scale insulin coverage. She ran fingerstick glu numbers of 150-250. Her Glipizide was resumed at half it's home dose. (4) Hypokalemia Serum Potassium was 3.3 at admission, likley related to her HCTZ use, however this was the meds she ran out of at home. Potassium needed replacement daily. (5) Hyperlipidemia associated with type 2 diabetes mellitus She had elevated triglyceride level as well as elevated LDL. She received Lipitor maximum dose, and was also started on fenofibrate for triglyceride management. (6) E. coli UTI She had abnormal urinalysis at admission (High WBC, leukocyte Esterase positive, and many bacteria present on U/A) and did admit to having urinary frequency and has a history of many prior UTIs. She was started empirically iv Ceftiaxone. The urine culture grew E. coli, which was romero-sensitive. She was transitioned to oral Levofloxacin, and was to complete a 7-day total course of antibiotics with probiotic. - ALLERGIES Allergies/Adverse Reactions: Allergies Allergy/AdvReac Type Severity Reaction Status Date / Time No Known Drug Allergies Allergy Verified 06/24/20 05:38 - MEDICATIONS Home Medications: Ambulatory Orders Medication Instructions Recorded Confirmed Felodipine [Felodipine ER] 10 mg PO DAILY 10/27/15 06/24/20 Lisinopril 20 mg PO BID 10/27/15 06/24/20 Meclizine HCl [Antivert] 25 mg PO TID PRN 06/24/20 06/24/20 Aspirin EC [Ecotrin] 81 mg PO DAILY #30 tablet 06/27/20 Atorvastatin Calcium [Lipitor] 80 mg PO QPM #30 tablet 06/27/20 Fenofibrate Nanocrystallized 145 mg PO DAILY #30 tablet 06/27/20 [Tricor] Glipizide [Glipizide ER] 5 mg PO QDBREAKFAST #30 ea 06/27/20 Saccharomyces Boulardii [Florastor] 250 mg PO BIDWM #6 capsule 06/27/20 levoFLOXacin [Levaquin] 750 mg PO Q2D #6 tablet 06/27/20 - PHYSICAL EXAM AT DISCHARGE General Appearance: positive: No acute distress, Alert Eyes Bilateral: positive: Normal inspection, EOMI ENT: positive: ENT inspection nml, No signs of dehydration Neck: positive: Nml inspection, No JVD, Other ( No carotid bruits) Respiratory: positive: No respiratory distress, Breath sounds nml Cardiovascular: positive: Regular rate & rhythm, No murmur Abdomen: positive: Non-tender, No distention Skin: positive: Warm, Dry Extremities: positive: Non-tender, No pedal edema Neurologic/Psychiatric: positive: Oriented x3, Other (4/5 R leg strength, 3/5 R arm strength) - LABS Result Diagrams: 06/27/20 05:00 06/27/20 05:00 - DIAGNOSTIC IMAGING Diagnostic Imaging Results: Final report reviewed - FOLLOW UP Follow Up: See (new) PCP after discharge from inpatient neuro rehab. - TIME SPENT Time Spent in Discharge (Minutes): 60
[2020-06-27 12:29] VITALS: BP 155/73
== END 2020-06-27 12:30 | disposition short-term general hospital (02) | DRG 65 ==
LOC: ED 04:21 → MS2 06:49 → ICU 07:15 → OBSVTOIN 11:17
PROVIDERS: ADMIT Internal Medicine; ATTEND Internal Medicine
DX: I63.9 Cerebral infarction, unspecified (principal); I63.89 Other cerebral infarction; G81.91 Hemiplegia, unspecified affecting right dominant side; E86.0 Dehydration; N30.00 Acute cystitis without hematuria; N39.0 Urinary tract infection, site not specified; E11.65 Type 2 diabetes mellitus with hyperglycemia; Z79.84 Long term (current) use of oral hypoglycemic drugs; R53.1 Weakness; R29.704 NIHSS score 4; I10 Essential (primary) hypertension; E11.9 Type 2 diabetes mellitus without complications; E87.6 Hypokalemia; T38.3X6A Underdosing of insulin and oral hypoglycemic [antidiabetic] drugs, initial encounter; T46.6X6A Underdosing of antihyperlipidemic and antiarteriosclerotic drugs, initial encounter; Z91.128 Patient's intentional underdosing of medication regimen for other reason; E78.5 Hyperlipidemia, unspecified; B96.20 Unspecified Escherichia coli [E. coli] as the cause of diseases classified elsewhere; Z66 Do not resuscitate; R94.31 Abnormal electrocardiogram [ECG] [EKG]; Z20.828 Contact with and (suspected) exposure to other viral communicable diseases
CPT/HCPCS: 36415; 70496; 70498; 70551; 80048; 80053; 80061; 81001; 83036; 83605; 83690; 83735; 84484; 85025; 85610; 87086; 87150; 87181; 87631; 93005; 93306; 96361; 96365; 96375; 97162; 97166; 97530; 99284; 99285; A9270; Q9967; 0202U; 81003; 83721

== ENCOUNTER 2020-07-21 07:00 | Outpatient (CLI) | payer MEDICARE, OTHER ==
[2020-07-21 13:54] LABS: CALCIUM 9.5 mg/dL (8.5-10.3); CREATININE 0.5 mg/dL (0.4-1.0)
== END 2020-07-21 23:59 | disposition home or self-care (01) ==
LOC: LAB.WCP 07:00
PROVIDERS: ATTEND Nurse Practitioner Family
DX: I10 Essential (primary) hypertension (principal)
CPT/HCPCS: 36415; 80048

== ENCOUNTER 2020-07-24 08:00 | Outpatient (CLI) | payer MEDICARE, OTHER ==
[2020-07-24 12:53] LABS: CALCIUM 9.6 mg/dL (8.5-10.3); CREATININE 0.5 mg/dL (0.4-1.0)
== END 2020-07-24 23:59 ==
LOC: LAB.WCP 08:00
PROVIDERS: ATTEND Nurse Practitioner Family
DX: E87.1 Hypo-osmolality and hyponatremia (principal)
CPT/HCPCS: 36415; 80048; 83930; 83935; 84300

== ENCOUNTER → 2020-07-25 | Outpatient (CLI) | payer MEDICARE, OTHER | LOC: LAB.N 08:00 | PROVIDERS: ATTEND Nurse Practitioner Family | DX: E87.1 Hypo-osmolality and hyponatremia (principal) | CPT/HCPCS: 83935; 84300 ==

== ENCOUNTER 2020-08-02 21:39 | Outpatient (CLI) | payer MEDICARE, OTHER | END 2020-08-02 21:40 | disposition critical access hospital (66) | LOC: EMS 21:39 | PROVIDERS: ATTEND Surgery | DX: R42 Dizziness and giddiness (principal); R11.0 Nausea; R26.81 Unsteadiness on feet | CPT/HCPCS: A0425; A0427 ==

== ENCOUNTER 2020-08-02 21:59 | Emergency (ER) | payer MEDICARE, OTHER ==
[2020-08-02] MEDS ORDERED: SODIUM CHLORIDE 0.9% 1,000 ML IV STA (22:15)
[2020-08-02 22:43] LABS: BASOPHILS # (AUTO) 0.1 10^3/uL (0.0-0.1); BASOPHILS % (AUTO) 1.3 %; EOSINOPHILS % (AUTO) 9.9 %; HGB - HEMOGLOBIN 11.5 g/dL (12.0-16.0); LYMPHOCYTES % (AUTO) 29.9 %; MEAN CORPUSCULAR HEMOGLOBIN 30.5 pg (27.0-31.0); MEAN CORPUSCULAR HGB CONC 34.1 g/dL (32.0-36.0); MEAN CORPUSCULAR VOLUME 89.4 fL (81.0-99.0); MEAN PLATELET VOLUME 8.1 fL (7.9-10.8); MONOCYTES # (AUTO) 0.9 10^3/uL (0.0-1.0); MONOCYTES % (AUTO) 9.2 %; NEUTROPHILS # (AUTO) 4.9 10^3/uL (1.5-6.6); NEUTROPHILS % (AUTO) 49.4 %; PLT - PLATELET COUNT 495 10^3/uL (130-450); RED BLOOD COUNT 3.77 10^6/uL (4.20-5.40); RED CELL DISTRIBUTION WIDTH 12.3 % (12.0-15.0); WHITE BLOOD COUNT 9.9 x10^3/uL (4.8-10.8)
[2020-08-02 22:49] LABS: INR 1.3 (0.8-1.2); PT - PROTHROMBIN TIME 14.1 secs (9.9-12.6)
[2020-08-02 22:58] LABS: ALBUMIN 4.1 g/dL (3.2-5.5); ALBUMIN/GLOBULIN RATIO 1.2 (1.0-2.2); BILIRUBIN,TOTAL 0.8 mg/dL (0.2-1.0); CALCIUM 9.3 mg/dL (8.5-10.3); TOTAL PROTEIN 7.5 g/dL (6.7-8.2)
[2020-08-02 23:05] LABS: CREATININE 0.6 mg/dL (0.4-1.0)
--- NOTE | 2020-08-02 23:43 | ED Physician Documentation ---
History of Present Illness - Stated complaint Stated Complaint: NEAR SYNCOPE, N/V/DIZZY - Chief complaint Chief Complaint: Neuro - History obtained from History obtained from: Patient - Additonal information Additional information: Comes emergency department complaining of feeling dizzy while trying to defecate. Patient states that she has felt a little nauseated for the last couple of days but mainly when she tries to have a bowel movement. Patient states she was sitting on the toilet and suddenly began to feel nauseated while pushing. She states that she got off the toilet and went to sit on the edge of the bed and gradually began to feel better. She denies any chest pain or shortness of breath. No abdominal pain. She states that she feels completely normal now but her daughter was concerned and wanted her to come to the emergency department. Patient has been recently rehabilitating after having a stroke. She states she has home health coming to her house and that she has been working on various aspects of physical therapy. She denies any fevers or chills. No diarrhea. No cough or shortness of breath. No other complaints at this time. Review of Systems Ten Systems: 10 systems reviewed and negative Constitutional: reports: Reviewed and negative Eyes: reports: Reviewed and negative Ears: reports: Reviewed and negative Nose: reports: Reviewed and negative Throat: reports: Reviewed and negative Cardiac: reports: Other (lightheadedness) Respiratory: reports: Reviewed and negative GI: reports: Nausea. denies: Abdominal Pain, Diarrhea : reports: Reviewed and negative Skin: reports: Reviewed and negative Musculoskeletal: reports: Reviewed and negative Neurologic: reports: Reviewed and negative Psychiatric: reports: Reviewed and negative Endocrine: reports: Reviewed and negative Immunocompromised: reports: Reviewed and negative PD PAST MEDICAL HISTORY - Past Medical History Cardiovascular: Hypertension, High cholesterol Respiratory: None Neuro: CVA Endocrine/Autoimmune: Type 2 diabetes GI: None : None HEENT: Other Psych: Depression Musculoskeletal: Osteoarthritis Derm: Eczema - Past Surgical History Past Surgical History: Yes General: Other HEENT: Cataracts - Present Medications Home Medications: Ambulatory Orders Medication Instructions Recorded Confirmed Felodipine [Felodipine ER] 10 mg PO DAILY 10/27/15 08/02/20 Lisinopril 20 mg PO BID 10/27/15 08/02/20 Aspirin EC [Ecotrin] 81 mg PO DAILY #30 tablet 06/27/20 08/02/20 Atorvastatin Calcium [Lipitor] 80 mg PO QPM #30 tablet 06/27/20 08/02/20 Fenofibrate 160 mg PO DAILY 08/02/20 08/02/20 Hydrochlorothiazide 25 mg PO DAILY 08/02/20 08/02/20 Isosorbide Mononitrate [Isosorbide 60 mg pe PO DAILY 08/02/20 08/02/20 Mononitrate ER] Melatonin 5 mg PO HS 08/02/20 08/02/20 Metoprolol Succinate [Toprol Xl] 50 mg PO DAILY 08/02/20 08/02/20 Pantoprazole Sodium [Protonix] 40 mg PO HS 08/02/20 08/02/20 metFORMIN [Glucophage] 500 mg PO BID 08/02/20 08/02/20 Potassium Chloride [K-Dur] 20 meq PO BIDWM 7 Days #14 tablet 08/03/20 - Allergies Allergies/Adverse Reactions: Allergies Allergy/AdvReac Type Severity Reaction Status Date / Time No Known Drug Allergies Allergy Verified 06/24/20 05:38 - Social History Does the pt smoke?: No Smoking Status: Never smoker Does the pt drink ETOH?: No Does the pt have substance abuse?: No PD ED PE NORMAL - Vitals Vital signs reviewed: Yes - General General: Alert and oriented X 3, No acute distress - HEENT HEENT: Atraumatic, PERRL, EOMI, Moist mucous membranes - Neck Neck: Supple, no meningeal sign - Cardiac Cardiac: RRR, No murmur, Strong equal pulses - Respiratory Respiratory: No respiratory distress, Clear bilaterally - Abdomen Abdomen: Soft, Non tender, Non distended - Derm Derm: Normal color, Warm and dry, No rash - Extremities Extremities: No deformity, No edema, No calf tenderness / cord - Neuro Neuro: Alert and oriented X 3, Other - Psych Psych: Normal mood, Normal affect Results - Vitals Vitals: Vital Signs - 24 hr 08/02/20 08/03/20 08/03/20 22:08 00:12 02:00 Temperature 36.5 C 36.6 C 36.6 C Heart Rate 59 L 63 63 Respiratory 21 19 19 Rate Blood Pressure 152/62 H 128/62 141/73 H O2 Saturation 97 98 97 Oxygen O2 Source Room air - Labs Labs: Laboratory Tests 08/02/20 08/02/20 08/02/20 22:40 22:40 22:40 WBC 9.9 RBC 3.77 L Hgb 11.5 L Hct 33.7 L MCV 89.4 MCH 30.5 MCHC 34.1 RDW 12.3 Plt Count 495 H MPV 8.1 Neut # (Auto) 4.9 Lymph # (Auto) 3.0 [place] # (Auto) 0.9 Eos # (Auto) 1.0 H Baso # (Auto) 0.1 Absolute Nucleated RBC 0.00 Nucleated RBC % 0.0 PT 14.1 H INR 1.3 H Sodium 127 L Potassium 2.9 L Chloride 87 L Carbon Dioxide 23 Anion Gap 17.0 H BUN 12 Creatinine 0.6 Estimated GFR (MDRD) 96 Glucose 153 H Calcium 9.3 Total Bilirubin 0.8 AST 70 H ALT 68 H Alkaline Phosphatase 46 Troponin I High Sens Total Protein 7.5 Albumin 4.1 Globulin 3.4 Albumin/Globulin Ratio 1.2 Lipase 66 H 08/02/20 22:40 WBC RBC Hgb Hct MCV MCH MCHC RDW Plt Count MPV Neut # (Auto) Lymph # (Auto) [place] # (Auto) Eos # (Auto) Baso # (Auto) Absolute Nucleated RBC Nucleated RBC % PT INR Sodium Potassium Chloride Carbon Dioxide Anion Gap BUN Creatinine Estimated GFR (MDRD) Glucose Calcium Total Bilirubin AST ALT Alkaline Phosphatase Troponin I High Sens 5.4 Total Protein Albumin Globulin Albumin/Globulin Ratio Lipase - Rads (name of study) CXR Radiology: Final report received, EMP read indepedently, See rad report (nad) CT abd/pelvis Radiology: See rad report (Final radiology interpretation: Stable fatty liver; fecal retention without obstruction; duodenal diverticulum; mild gallbladder wall thickening, stable. Stable right adrenal nodule.) PD MEDICAL DECISION MAKING - ED course Complexity details: reviewed results, re-evaluated patient (Patient was given a liter 0.9 normal saline and worked up with labs, EKG, and chest x-ray all of which) ED course: Was given 1 L bolus 0.9 normal saline and worked up with EKG and chest x-ray, which were unremarkable, and labs, which showed moderately low potassium and mild elevations of lipase and LFTs. The patient did once again verify that she had not had any abdominal pain, only than occasional nausea for the last couple of days. I did feel the patient should have imaging to evaluate the LFT and lipase findings, as she had never before had abnormalities of any of these labs. This was done and other than unchanged fatty liver, was found to be unremarkable. The patient was feeling better and I felt she was stable for discharge home. No emergent condition has been identified. Has been given supplemental potassium, both as a dose in the emergency department and as a prescription for home. She is to follow-up with her doctor in a week for repeat potassium. Departure - Departure Disposition: Home, Self Care Clinical Impression: Near syncope, Hypokalemia Condition: Stable Instructions: ED Near Syncope Unkn Prescriptions: Potassium Chloride [K-Dur] 20 meq PO BIDWM 7 Days #14 tablet Comments: Your tests showed low potassium, as well as mild elevations of your liver and pancreatic enzymes. However, the CT scan we got to take a better look at these did not show any concerning abnormalities with your pancreas or liver or gallbladder. Please be sure to drink plenty of fluids and get rest, and take the potassium supplements to bring your potassium back up. You will need to follow up with your primary doctor in about a week to have the potassium rechecked. Continue your physical therapy as you have been doing. Discharge Date/Time: 08/03/20 02:44
[2020-08-03] MEDS ORDERED: IOVERSOL 320 100 ML VIAL IVP ONE ×2 (00:47→01:18)
[2020-08-03] MEDS ORDERED: POTASSIUM CHLORIDE 20 MEQ TABLET PO STA (02:11)
[2020-08-03 02:14] VITALS: BP 141/73
--- NOTE | 2020-08-03 08:38 | XRAY Report ---
PROCEDURE: Chest 1 View X-Ray INDICATIONS: Chest Pain TECHNIQUE: One view of the chest was acquired. COMPARISON: 05/07/2020 FINDINGS: Surgical changes and devices: Surgical clips projecting in the left upper quadrant. Lungs and pleura: No pleural effusions or pneumothorax. Unchanged scattered scarring/atelectasis. Mediastinum: Mediastinal contours appear normal. Heart size is normal. Bones and chest wall: No suspicious bony lesions. Overlying soft tissues appear unremarkable. IMPRESSION: No acute disease Reviewed by: Dima Trujillo MD on 08/03/2020 8:37 AM PST Approved by: Dima Trujillo MD on 08/03/2020 8:37 AM PST Station ID: [id number]
--- NOTE | 2020-08-03 09:18 | CT Report ---
PROCEDURE: Abdomen/Pelvis W INDICATIONS: nausea, elevated LFT/lipase CONTRAST: IV CONTRAST: Optiray 320 ml: 100 PO CONTRAST: *NO PO CONTRAST TECHNIQUE: After the administration of IV contrast, 5 mm thick sections acquired from the diaphragms to the symp hysis. 5 mm thick coronal and sagittal reformats were acquired. For radiation dose reduction, the f ollowing was used: automated exposure control, adjustment of mA and/or kV according to patient size. COMPARISON: None. FINDINGS: Image quality: Excellent. ABDOMEN: Lung bases: Lung bases are clear. Heart size is normal. Solid organs: Liver and spleen are normal in size. There is hepatic steatosis. Gallbladder may demon strate mild mural thickening however limited evaluation given partially collapsed state Biliary system is non dilated. Pancreas enhances normally. A cystic appearance to the tail the pa ncreas seen on image 24/3 is likely artifact related to volume averaging especially given the appeara nce from the prior CT from 05/03/2017. Nonspecific subcentimeter right adrenal nodule which is unchanged since 2017. Left adrenal gland unre markable. Kidneys demonstrate normal size and enhancement, without hydronephrosis. Simple appearing renal cysts. Additional subcentimeter renal foci which are statistically cysts, however too to christina cterize accurately and therefore technically indeterminate. Peritoneum and bowel: Bowel loops demonstrate normal wall thickness and caliber. No free fluid or a ir. Large duodenal diverticulum. Surgical clips in the left upper quadrant. Normal appearance of the appendix. Nodes and vessels: Scattered retroperitoneal and mesenteric lymph nodes, grossly unchanged and nonspe cific finding. Aorta and inferior vena cava are normal in size. Miscellaneous: No ventral hernias. PELVIS: Genitourinary: Bladder is distended and otherwise unremarkable. Miscellaneous: No inguinal hernias or adenopathy. Bones: No suspicious bony lesions. No vertebral body compression fractures. IMPRESSION: Hepatic steatosis. Large duodenal diverticulum No acute abnormality. Additional chronic and incidental findings as above. Findings are concordant with the preliminary study interpretation provided at the time of the study. Reviewed by: Dima Trujillo MD on 08/03/2020 9:17 AM PST Approved by: Dima Trujillo MD on 08/03/2020 9:17 AM PST Station ID: [id number]
== END 2020-08-03 02:44 | disposition home or self-care (01) ==
LOC: EDUNIT# → ED 21:59 → SUPCPDRO 21:59 → ED 08-03 02:44
DX: E87.6 Hypokalemia (principal); R55 Syncope and collapse; I10 Essential (primary) hypertension; E11.9 Type 2 diabetes mellitus without complications; Z79.84 Long term (current) use of oral hypoglycemic drugs
CPT/HCPCS: 36415; 71045; 74177; 80053; 83690; 84484; 85025; 85610; 93005; 96360; 96361; 99284; 99285; A9270; Q9967

== ENCOUNTER 2020-08-06 08:00 | Outpatient (CLI) | payer MEDICARE, OTHER ==
[2020-08-06 13:49] LABS: CALCIUM 10.3 mg/dL (8.5-10.3); CREATININE 0.6 mg/dL (0.4-1.0)
== END 2020-08-06 23:59 | disposition home or self-care (01) ==
LOC: LAB.WCP 08:00
PROVIDERS: ATTEND Nurse Practitioner Family
DX: I10 Essential (primary) hypertension (principal)
CPT/HCPCS: 36415; 80048; 84443

== ENCOUNTER 2020-08-17 08:00 | Outpatient (CLI) | payer MEDICARE, OTHER ==
[2020-08-17 12:52] LABS: CALCIUM 9.8 mg/dL (8.5-10.3); CREATININE 0.6 mg/dL (0.4-1.0)
== END 2020-08-17 23:59 | disposition home or self-care (01) ==
LOC: LAB.WCP 08:00
PROVIDERS: ATTEND Family Medicine
DX: E87.6 Hypokalemia (principal); E87.1 Hypo-osmolality and hyponatremia
CPT/HCPCS: 36415; 80048

== ENCOUNTER 2020-09-16 08:00 | Outpatient (CLI) | payer MEDICARE, OTHER ==
[2020-09-16 13:35] LABS: BASOPHILS # (AUTO) 0.1 10^3/uL (0.0-0.1); BASOPHILS % (AUTO) 1.1 %; EOSINOPHILS # (AUTO) 0.3 10^3/uL (0.0-0.7); EOSINOPHILS % (AUTO) 3.7 %; HGB - HEMOGLOBIN 11.5 g/dL (12.0-16.0); LYMPHOCYTES # (AUTO) 3.4 10^3/uL (1.5-3.5); LYMPHOCYTES % (AUTO) 43.2 %; MEAN CORPUSCULAR HEMOGLOBIN 29.6 pg (27.0-31.0); MEAN CORPUSCULAR HGB CONC 32.3 g/dL (32.0-36.0); MEAN CORPUSCULAR VOLUME 91.5 fL (81.0-99.0); MEAN PLATELET VOLUME 10.2 fL (7.9-10.8); MONOCYTES # (AUTO) 0.7 10^3/uL (0.0-1.0); MONOCYTES % (AUTO) 8.9 %; NEUTROPHILS # (AUTO) 3.4 10^3/uL (1.5-6.6); NEUTROPHILS % (AUTO) 42.7 %; PLT - PLATELET COUNT 529 10^3/uL (130-450); RED BLOOD COUNT 3.89 10^6/uL (4.20-5.40); RED CELL DISTRIBUTION WIDTH 14.2 % (12.0-15.0); WHITE BLOOD COUNT 7.9 x10^3/uL (4.8-10.8)
[2020-09-16 13:39] LABS: ALBUMIN 4.4 g/dL (3.2-5.5); ALBUMIN/GLOBULIN RATIO 1.3 (1.0-2.2); BILIRUBIN,TOTAL 0.7 mg/dL (0.2-1.0); CALCIUM 9.7 mg/dL (8.5-10.3); CREATININE 0.5 mg/dL (0.4-1.0); TOTAL PROTEIN 7.9 g/dL (6.7-8.2)
== END 2020-09-16 23:59 | disposition home or self-care (01) ==
LOC: LAB.WCP 08:00
PROVIDERS: ATTEND Family Medicine
DX: R10.9 Unspecified abdominal pain (principal); I63.9 Cerebral infarction, unspecified; D64.9 Anemia, unspecified
CPT/HCPCS: 36415; 80053; 83690; 85025

== ENCOUNTER 2021-01-05 08:50 | Outpatient (CLI) | payer MEDICARE, OTHER ==
[2021-01-05 13:04] LABS: BASOPHILS # (AUTO) 0.1 10^3/uL (0.0-0.1); BASOPHILS % (AUTO) 1.2 %; EOSINOPHILS # (AUTO) 0.4 10^3/uL (0.0-0.7); EOSINOPHILS % (AUTO) 4.6 %; HCT - HEMATOCRIT 34.9 % (37.0-47.0); HGB - HEMOGLOBIN 11.5 g/dL (12.0-16.0); LYMPHOCYTES # (AUTO) 3.8 10^3/uL (1.5-3.5); LYMPHOCYTES % (AUTO) 48.2 %; MEAN CORPUSCULAR VOLUME 91.1 fL (81.0-99.0); MONOCYTES # (AUTO) 0.7 10^3/uL (0.0-1.0); MONOCYTES % (AUTO) 8.4 %; NEUTROPHILS # (AUTO) 2.9 10^3/uL (1.5-6.6); NEUTROPHILS % (AUTO) 37.5 %; PLT - PLATELET COUNT 457 10^3/uL (130-450); RED BLOOD COUNT 3.83 10^6/uL (4.20-5.40); RED CELL DISTRIBUTION WIDTH 13.7 % (12.0-15.0); WHITE BLOOD COUNT 7.8 x10^3/uL (4.8-10.8)
[2021-01-05 13:48] LABS: ALBUMIN 4.3 g/dL (3.2-5.5); ALBUMIN/GLOBULIN RATIO 1.3 (1.0-2.2); ALKALINE PHOSPHATASE 37 IU/L (42-121); ALT ALANINE AMINOTRANSFERASE 22 IU/L (10-60); AST ASPARTATE AMINOTRANSFERASE 24 IU/L (10-42); BILIRUBIN,TOTAL 0.5 mg/dL (0.2-1.0); BUN - BLOOD UREA NITROGEN 21 mg/dL (6-20); CALCIUM 9.5 mg/dL (8.5-10.3); CARBON DIOXIDE - CO2 26 mmol/L (21-32); CHLORIDE 98 mmol/L (101-111); CHOL/HDL RATIO 2.7 (<4.4); CHOLESTEROL 108 mg/dL; CREATININE 0.6 mg/dL (0.4-1.0); GFR - MDRD 96 (>89); GLUCOSE 137 mg/dL (70-100); HDL CHOLESTEROL 40 mg/dL; LDL CHOLESTEROL,CALCULATED 53 mg/dL; LDL/HDL RATIO 1.3 (<4.4); POTASSIUM 3.9 mmol/L (3.5-5.0); SODIUM 132 mmol/L (135-145); TOTAL PROTEIN 7.6 g/dL (6.7-8.2); TRIGLYCERIDES 77 mg/dL; VLDL CHOLESTEROL 15 mg/dL
[2021-01-05 13:55] LABS: THYROID STIMULATING HORMONE 1.13 uIU/mL (0.34-5.60)
[2021-01-05 14:13] LABS: ESTIMATED AVERAGE GLUCOSE 174 mg/dL (70-100); HEMOGLOBIN A1c% 7.7 % (4.27-6.07)
== END 2021-01-05 23:59 | disposition home or self-care (01) ==
LOC: LAB.WCP 08:50
PROVIDERS: ATTEND Internal Medicine
DX: E87.1 Hypo-osmolality and hyponatremia (principal); E11.42 Type 2 diabetes mellitus with diabetic polyneuropathy
CPT/HCPCS: 36415; 80053; 80061; 82043; 82533; 82570; 83036; 83721; 83930; 84443; 85025

== ENCOUNTER 2021-01-06 08:00 | Outpatient (CLI) | payer MEDICARE, OTHER ==
[2021-01-06 17:51] LABS: CREATININE,URINE 45.9 mg/dL; MICROALBUM/CREATININE RATIO,UR 76.3 ug/mg (<30.0); MICROALBUMIN,URINE 3.5 mg/dL (0-300.0)
== END 2021-01-06 23:59 | disposition home or self-care (01) ==
LOC: LAB.WCP 08:00
PROVIDERS: ATTEND Internal Medicine
DX: E11.42 Type 2 diabetes mellitus with diabetic polyneuropathy (principal)
CPT/HCPCS: 82043; 82570

== ENCOUNTER 2021-04-15 08:00 | Outpatient (CLI) | payer MEDICARE, OTHER ==
[2021-04-15 12:08] LABS: ABSOLUTE RETICS # AUTO 0.087 10^6/uL (0.020-0.110); BASOPHILS # (AUTO) 0.1 10^3/uL (0.0-0.1); BASOPHILS % (AUTO) 0.5 %; EOSINOPHILS # (AUTO) 0.5 10^3/uL (0.0-0.7); EOSINOPHILS % (AUTO) 4.8 %; HCT - HEMATOCRIT 38.6 % (37.0-47.0); HGB - HEMOGLOBIN 12.6 g/dL (12.0-16.0); LYMPHOCYTES # (AUTO) 3.9 10^3/uL (1.5-3.5); MEAN CORPUSCULAR HEMOGLOBIN 29.7 pg (27.0-31.0); MEAN CORPUSCULAR HGB CONC 32.6 g/dL (32.0-36.0); MONOCYTES # (AUTO) 0.9 10^3/uL (0.0-1.0); MONOCYTES % (AUTO) 8.2 %; NEUTROPHILS # (AUTO) 5.7 10^3/uL (1.5-6.6); NEUTROPHILS % (AUTO) 51.1 %; PLT - PLATELET COUNT 380 10^3/uL (130-450); RED BLOOD COUNT 4.24 10^6/uL (4.20-5.40); RED CELL DISTRIBUTION WIDTH 13.4 % (12.0-15.0); RETICULOCYTE COUNT % (AUTO) 2.05 % (0.5-2.3); WHITE BLOOD COUNT 11.1 x10^3/uL (4.8-10.8)
[2021-04-15 12:35] LABS: % IRON SATURATION 21 % (20-50); ALBUMIN 4.1 g/dL (3.2-5.5); ALBUMIN/GLOBULIN RATIO 1.2 (1.0-2.2); ALKALINE PHOSPHATASE 55 IU/L (42-121); ALT ALANINE AMINOTRANSFERASE 16 IU/L (10-60); AST ASPARTATE AMINOTRANSFERASE 19 IU/L (10-42); BILIRUBIN,TOTAL 0.6 mg/dL (0.2-1.0); BUN - BLOOD UREA NITROGEN 16 mg/dL (6-20); CARBON DIOXIDE - CO2 24 mmol/L (21-32); CHLORIDE 96 mmol/L (101-111); CHOL/HDL RATIO 2.7 (<4.4); CHOLESTEROL 123 mg/dL; CREATININE 0.6 mg/dL (0.4-1.0); GFR - MDRD 96 (>89); GLUCOSE 223 mg/dL (70-100); HDL CHOLESTEROL 46 mg/dL; IRON 83 ug/dL (28-170); LDL CHOLESTEROL,CALCULATED 60 mg/dL; LDL/HDL RATIO 1.3 (<4.4); SODIUM 131 mmol/L (135-145); TOTAL IRON BINDING CAPACITY 388 ug/dL (250-450); TOTAL PROTEIN 7.4 g/dL (6.7-8.2); TRANSFERRIN 277 mg/dL (192-382); TRIGLYCERIDES 86 mg/dL; VLDL CHOLESTEROL 17 mg/dL
[2021-04-15 12:42] LABS: THYROID STIMULATING HORMONE 1.57 uIU/mL (0.34-5.60)
[2021-04-15 12:47] LABS: ESTIMATED AVERAGE GLUCOSE 246 mg/dL (70-100); HEMOGLOBIN A1c% 10.2 % (4.27-6.07)
[2021-04-15 12:49] LABS: FERRITIN 32.3 ng/mL (11.0-306.8)
== END 2021-04-15 23:59 | disposition home or self-care (01) ==
LOC: LAB.WCP 08:00
PROVIDERS: ATTEND Internal Medicine
DX: E11.42 Type 2 diabetes mellitus with diabetic polyneuropathy (principal); D64.9 Anemia, unspecified; F41.9 Anxiety disorder, unspecified; F32.9 Major depressive disorder, single episode, unspecified
CPT/HCPCS: 36415; 80053; 80061; 82607; 82728; 83036; 83540; 83721; 84443; 84466; 85025; 85045

== ENCOUNTER 2021-08-07 13:41 | Outpatient (CLI) | payer MEDICARE, OTHER | END 2021-08-07 13:42 | disposition critical access hospital (66) | LOC: EMS 13:41 | DX: R19.7 Diarrhea, unspecified (principal); R51.9 Headache, unspecified; R10.9 Unspecified abdominal pain; R42 Dizziness and giddiness | CPT/HCPCS: A0425; A0429 ==

== ENCOUNTER 2021-09-14 08:00 | Outpatient (CLI) | payer MEDICARE, OTHER | END 2021-09-14 23:59 | disposition home or self-care (01) | LOC: LAB.N 08:00 | PROVIDERS: ATTEND Nurse Practitioner | DX: R05.9 Cough, unspecified (principal); R51.9 Headache, unspecified; Z20.822 Contact with and (suspected) exposure to COVID-19 ==

== ENCOUNTER 2021-09-18 11:45 | Observation (INO) | payer MEDICARE, OTHER ==
--- NOTE | 2021-09-18 12:20 | ED Physician Documentation ---
PD HPI HEENT - Stated complaint Stated Complaint: NAUSEA/DIZZY - Chief complaint Chief Complaint: Neuro - History obtained from History obtained from: Patient - History of Present Illness Timing - onset: How many days ago (4-5) Timing - duration: Days (4-5) Timing - details: Gradual onset (Patient has a history of vertigo in the past and has meclizine to use as needed. Typically this will improve her symptoms. She states 4 to 5 days now of increasing symptoms of vertigo and also feeling separately lightheaded and a little off balance. No focal weaknesses. No visual change.) Worsens: Position (worse turning head and sitting up until rested in new position.), Other (head movement) Associated symptoms: Congestion (has felt some nasal congestion.), Headache (frontal area). No: Fever, Facial swelling Similar symptoms before: Diagnosis (labrynthine vertigo in the past. History of diabetes. Prior CVA with right sided weakness, but did not have any vertigo related to that; has been peripheral vertigo in the past.) Recently seen: Clinic (She was seen 3 days ago in the walk-in clinic and diagnosed with ear infection and placed on amoxicillin. She was to continue her meclizine. She does not feel improved.) Review of Systems Constitutional: denies: Fever, Chills Eyes: denies: Loss of vision, Decreased vision Ears: denies: Ear pain, Drainage/discharge Nose: reports: Congestion, Sinus pressure / pain. denies: Rhinorrhea / runny nose Throat: denies: Sore throat Respiratory: denies: Cough GI: reports: Nausea, Vomiting (with worse vertigo) : denies: Dysuria Neurologic: reports: Generalized weakness (for several days). denies: Focal weakness, Numbness, Altered mental status (but is feeling somewhat lightheaded with sitting up as well. She does feel hydrated with taking PO fluids the past few days despite the nausea.), Head injury PD PAST MEDICAL HISTORY - Past Medical History Cardiovascular: Hypertension, High cholesterol Respiratory: None Neuro: CVA Endocrine/Autoimmune: Type 2 diabetes GI: None : None HEENT: Other Psych: Depression Musculoskeletal: Osteoarthritis Derm: Eczema - Past Surgical History Past Surgical History: Yes General: Other HEENT: Cataracts - Present Medications Home Medications: Ambulatory Orders Medication Instructions Recorded Confirmed Felodipine [Felodipine ER] 10 mg PO DAILY 10/27/15 08/02/20 Lisinopril 20 mg PO BID 10/27/15 08/02/20 Aspirin EC [Ecotrin] 81 mg PO DAILY #30 tablet 06/27/20 08/02/20 Atorvastatin Calcium [Lipitor] 80 mg PO QPM #30 tablet 06/27/20 08/02/20 Fenofibrate 160 mg PO DAILY 08/02/20 08/02/20 Isosorbide Mononitrate [Isosorbide 60 mg pe PO DAILY 08/02/20 08/02/20 Mononitrate ER] Melatonin 5 mg PO HS 08/02/20 08/02/20 Metoprolol Succinate [Toprol Xl] 50 mg PO DAILY 08/02/20 08/02/20 Pantoprazole Sodium [Protonix] 40 mg PO HS 08/02/20 08/02/20 hydroCHLOROthiazide 25 mg PO DAILY 08/02/20 08/02/20 [Hydrochlorothiazide] metFORMIN [Glucophage] 500 mg PO BID 08/02/20 08/02/20 Potassium Chloride [K-Dur] 20 meq PO BIDWM 7 Days #14 tablet 08/03/20 cephALEXin [Keflex] 500 mg PO Q6H #28 cap 08/07/21 - Allergies Allergies/Adverse Reactions: Allergies Allergy/AdvReac Type Severity Reaction Status Date / Time No Known Drug Allergies Allergy Verified 09/18/21 11:55 - Social History Does the pt smoke?: No Smoking Status: Never smoker Does the pt drink ETOH?: No Does the pt have substance abuse?: No PD ED PE NORMAL - Vitals Vital signs reviewed: Yes - General General: Alert and oriented X 3, Well developed/nourished - HEENT HEENT: PERRL, EOMI (There is nystagmus noted to the left with eye movement.), Ears normal (Both your canals and your drums appear normal on exam today.), Pharynx benign - Neck Neck: Supple, no meningeal sign, No adenopathy, No JVD, No bruit - Cardiac Cardiac: RRR, No murmur - Respiratory Respiratory: Clear bilaterally - Abdomen Abdomen: Soft, Non tender - Derm Derm: Normal color, Warm and dry - Extremities Extremities: Normal ROM s pain, No edema, No calf tenderness / cord - Neuro Neuro: Alert and oriented X 3, No motor deficit, Normal speech Eye Opening: Spontaneous Motor: Obeys Commands Verbal: Oriented GCS Score: 15 - Psych Psych: Normal mood, Normal affect Results - Vitals Vitals: Vital Signs - 24 hr 09/18/21 11:49 Temperature 36.1 C L Heart Rate 70 Respiratory 20 Rate Blood Pressure 198/74 H O2 Saturation 98 Oxygen O2 Source Room air - Labs Labs: Laboratory Tests 09/18/21 09/18/21 09/18/21 12:58 12:58 12:58 WBC 7.1 RBC 4.18 L Hgb 12.6 Hct 36.0 L MCV 86.1 MCH 30.1 MCHC 35.0 RDW 12.4 Plt Count 401 MPV 9.7 Neut # (Auto) 3.4 Lymph # (Auto) 2.1 [place] # (Auto) 0.8 Eos # (Auto) 0.6 Baso # (Auto) 0.1 Absolute Nucleated RBC 0.00 Nucleated RBC % 0.0 Sodium 119 L* Potassium 3.5 Chloride 81 L Carbon Dioxide 25 Anion Gap 13.0 BUN 7 Creatinine 0.4 Estimated GFR (MDRD) 154 Glucose 163 H Calcium 8.8 Magnesium 1.6 L Total Bilirubin 0.8 AST 27 ALT 14 Alkaline Phosphatase 42 Total Protein 7.9 Albumin 4.4 Globulin 3.5 Albumin/Globulin Ratio 1.3 Lipase 45 TSH 2.96 PD MEDICAL DECISION MAKING - ED course Complexity details: reviewed results (The patient sodium is significantly low at 119. This can be contributing to her symptoms.), considered differential (Severe vertigo and has positional vertigo symptoms. However her symptoms are not improving with typical meclizine. No focal weaknesses nor visual change. We can check basic electrolytes for other potential causes.), d/w patient, d/w enterprise resource planning consultant (hspitalist) Departure - Departure Disposition: ED Place in Observation Clinical Impression: Vertigo, Acute hyponatremia Nausea and vomiting Qualifiers: Vomiting type: unspecified Qualified Code(s): R11.2 - Nausea with vomiting, unspecified Condition: Stable Record reviewed to determine appropriate education?: Yes
[2021-09-18] MEDS ORDERED: KETOROLAC 15 MG/ML VIAL IVP STA (12:42)
[2021-09-18] MEDS ORDERED: diazePAM INJ 5 MG/ML SYRINGE IVP STA (12:43)
[2021-09-18] MEDS ORDERED: ONDANSETRON 4 MG/2 ML VIAL IVP STA (12:43)
[2021-09-18 13:17] LABS: ALBUMIN 4.4 g/dL (3.2-5.5); ALBUMIN/GLOBULIN RATIO 1.3 (1.0-2.2); BILIRUBIN,TOTAL 0.8 mg/dL (0.2-1.0); CALCIUM 8.8 mg/dL (8.5-10.3); CREATININE 0.4 mg/dL (0.4-1.0); MAGNESIUM 1.6 mg/dL (1.7-2.8); TOTAL PROTEIN 7.9 g/dL (6.7-8.2)
[2021-09-18] MEDS ORDERED: SODIUM CHLORIDE 0.9% 1,000 ML IV STA (13:22)
[2021-09-18 13:29] LABS: POTASSIUM 3.5 mmol/L (3.5-5.0)
[2021-09-18] MEDS ORDERED: SODIUM CHLORIDE FLUSH 0.9% 10 ML SYRINGE IVP PRN (13:54)
[2021-09-18] MEDS ORDERED: ONDANSETRON 4 MG/2 ML VIAL IVP PRN (13:54)
[2021-09-18] MEDS ORDERED: ACETAMINOPHEN 325 MG TABLET PO PRN (13:54)
[2021-09-18] MEDS ORDERED: MECLIZINE 12.5 MG TABLET PO PRN (13:59)
--- NOTE | 2021-09-18 14:09 | HISTORY & PHYSICAL EXAMINATION ---
Chief Complaint - Chief Complaint Chief Complaint: nausea, vomiting, dizziness History of Present Illness - Admitted From Admitted From:: [facility] ED - History Obtained From Records Reviewed: yes History obtained from: patient and medical records Exam Limitations: none - History of Present Illness HPI Comment/Other: Patient is an 80-year-old female who presented to the ED with complaint of dizziness, nausea and vomiting. She had been seen at the urgent care clinic 5 days ago with complaints of headache dizziness, cough and fever. She was diagnosed with an ear infection and prescribed amoxicillin. She decided to come in today for the persistent nausea vomiting and dizziness. Her cough is nonproductive. In the ED work-up included a BMP which showed a critical sodium level of 119. As a result she was presented for admission for further treatment. At bedside she is resting comfortably. She denies chest pain, dyspnea, abdominal pain, fever or chills. The rest of her history is unremarkable. 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 - Family & Social History Family History Comment/Other: Family history significant for diabetes Social History Notes: She does not consume alcohol or tobacco products. She lives at home with her daughter. She gets around using a cane since suffering from a CVA in 2019. She is independent of activities of daily living. - POLST Patient has POLST: Yes POLST Status: DNR Meds/Allgy - Home Medications Home Medications: Ambulatory Orders Medication Instructions Recorded Confirmed Felodipine [Felodipine ER] 10 mg PO DAILY 10/27/15 09/19/21 Lisinopril 20 mg PO BID 10/27/15 09/19/21 Aspirin EC [Ecotrin] 81 mg PO DAILY #30 tablet 06/27/20 09/19/21 Atorvastatin Calcium [Lipitor] 80 mg PO QPM #30 tablet 06/27/20 09/19/21 Isosorbide Mononitrate [Isosorbide 60 mg pe PO DAILY 08/02/20 09/19/21 Mononitrate ER] Fluticasone [Flonase] 1 sprays FLORA BID 09/19/21 09/19/21 Glimepiride [Amaryl] 2 mg PO 0800 09/19/21 09/19/21 Meclizine [Antivert] 12.5 mg PO TID PRN 09/19/21 09/19/21 Metoprolol Succinate 100 mg PO DAILY 09/19/21 09/19/21 Potassium Chloride [K-Dur] 20 meq PO DAILYWM 09/19/21 09/19/21 Sertraline [Zoloft] 50 mg PO DAILY 09/19/21 09/19/21 metFORMIN [Glucophage] 850 mg PO BIDWM 09/19/21 09/19/21 - Allergies Allergies/Adverse Reactions: Allergies Allergy/AdvReac Type Severity Reaction Status Date / Time No Known Drug Allergies Allergy Verified 09/18/21 11:55 Review of Systems - Constitutional Constitutional: denies: Fatigue, Fever, Chills - Eyes Eyes: denies: Pain, Vision loss - Ears, Nose & Throat Ears, Nose & Throat: reports: Vertigo. denies: Nasal pain, Sore throat - Cardiovascular Cariovascular: reports: Lightheadedness. denies: Chest pain, Edema, Syncope, Exertional dyspnea - Respiratory Respiratory: reports: Cough. denies: Sputum production, Wheezing, SOB at rest, SOB with exertion, Other - Gastrointestinal Gastrointestinal: reports: Nausea, Vomiting. denies: Abdominal pain, Abdominal distention, Constipation, Diarrhea, Coffee grounds emesis, Reflux/heartburn - Genitourinary Genitourinary: denies: Dysuria, Frequency, Urgency - Musculoskeletal Musculoskeletal: denies: Muscle pain, Back pain, Muscle aches - Integumentary Integumentary: denies: Rash, Pruritis, Lesions, Dryness - Neurological Neurological: reports: Headache. denies: Focal weakness - Psychiatric Psychiatric: denies: Depression, Anxiety - Endocrine Endocrine: denies: Polyuria, Polydypsia - Hematologic/Lymphatic Hematologic/Lymphatic: denies: Anemia, Bruising, Petechiae Prior Level of Functionality: She lives at home with her daughter. She gets around using a cane since suffering from a CVA in 2019. She is independent of activities of daily living. Exam - Vital Signs Vital Signs: Vital Signs x48h Temp Pulse Resp BP Pulse Ox 09/18/21 11:49 36.1 C L 70 20 198/74 H 98 - Physical Exam General Appearance: positive: Alert, Mild distress Eyes Bilateral: positive: PERRL, EOMI ENT: positive: Dry mucous membranes Neck: positive: No JVD, Trachea midline Respiratory: positive: Chest non-tender, No respiratory distress, Other (Mild crackles in lung bases) Cardiovascular: positive: Regular rate & rhythm, No murmur Abdomen: positive: Non-tender, No organomegaly, Nml bowel sounds, No distention. negative: Guarding, Rebound Back: positive: Nml inspection Skin: positive: No rash, Warm, Dry Extremities: positive: Non-tender, Full ROM, Nml appearance, No pedal edema Neurologic/Psychiatric: positive: Oriented x3, Mood/affect nml Conclusion/Plan - Problem List (1) Acute hyponatremia Conclusion/Plan: Suspect hypovolemic hyponatremia. Patient has been experiencing significant nausea and vomiting which is likely related to vertigo in relation to recent ear infection. IV hydration with normal saline at 250 mL/h was initiated in the ED. We will change the rate to normal saline at 100 mL/h. We will check BMP every 6 hours. (2) Nausea and vomiting Conclusion/Plan: Likely secondary to vertigo. Zofran every 4 hours as needed Qualifiers: Vomiting type: unspecified Qualified Code(s): R11.2 - Nausea with vomiting, unspecified (3) Ear infection Conclusion/Plan: Patient completed a 5-day course of amoxicillin. Currently afebrile and white blood cell count normal. (4) Vertigo Conclusion/Plan: Meclizine ordered as needed. (5) History of CVA (cerebrovascular accident) Conclusion/Plan: Will resume patient's atorvastatin. On lisinopril, Metoprolol, isosorbide mononitrate and felodipine (6) HTN (hypertension) Conclusion/Plan: On lisinopril, Metoprolol, isosorbide mononitrate and felodipine Hydralazine 10 mg IV every 4 hours as needed for systolic blood pressure greater than 160. (8) Diabetes mellitus Conclusion/Plan: We will hold patient's Metformin. Accu-Cheks before every meal and at bedtime. Sliding scale insulin. Qualifiers: Diabetes mellitus type: type 2 - Lab Results Fish Bones: 09/19/21 04:52 09/19/21 06:51 Core Measures - Anticipated LOS I expect patient to be DC'd or transferred within 96 hours.: Yes - DVT/VTE - Prophylaxis VTE/DVT Device ordered at admit?: Yes VTE/DVT Prophylaxis med ordered at admit?: Yes
[2021-09-18 14:12] LABS: BASOPHILS # (AUTO) 0.1 10^3/uL (0.0-0.1); BASOPHILS % (AUTO) 1.4 %; EOSINOPHILS # (AUTO) 0.6 10^3/uL (0.0-0.7); EOSINOPHILS % (AUTO) 8.6 %; HGB - HEMOGLOBIN 12.6 g/dL (12.0-16.0); LYMPHOCYTES # (AUTO) 2.1 10^3/uL (1.5-3.5); LYMPHOCYTES % (AUTO) 29.4 %; MEAN CORPUSCULAR HEMOGLOBIN 30.1 pg (27.0-31.0); MEAN CORPUSCULAR VOLUME 86.1 fL (81.0-99.0); MEAN PLATELET VOLUME 9.7 fL (7.9-10.8); MONOCYTES # (AUTO) 0.8 10^3/uL (0.0-1.0); MONOCYTES % (AUTO) 11.7 %; NEUTROPHILS # (AUTO) 3.4 10^3/uL (1.5-6.6); NEUTROPHILS % (AUTO) 48.6 %; PLT - PLATELET COUNT 401 10^3/uL (130-450); RED BLOOD COUNT 4.18 10^6/uL (4.20-5.40); RED CELL DISTRIBUTION WIDTH 12.4 % (12.0-15.0); WHITE BLOOD COUNT 7.1 x10^3/uL (4.8-10.8)
[2021-09-18 14:48] LABS: B. PARAPERTUSSIS- RESP PCR PAN NOT DETECTED; B. PERTUSSIS- RESP PCR PANEL NOT DETECTED; C. PNEUMONIAE- RESP PCR PANEL NOT DETECTED; CORONAVIRUS 229E-RESP PCR NOT DETECTED; CORONAVIRUS HKU1-RESP PCR NOT DETECTED; CORONAVIRUS NL63-RESP PCR NOT DETECTED; CORONAVIRUS OC43-RESP PCR NOT DETECTED; HUMAN METAPNEUMOVIRUS NOT DETECTED; INFLUENZA A- RESP PCR PANEL NOT DETECTED; INFLUENZA B - RESP PCR PANEL NOT DETECTED; M. PNEUMONIAE- RESP PCR PANEL NOT DETECTED; PARAINFLUENZA VIRUS 1 NOT DETECTED; PARAINFLUENZA VIRUS 2 NOT DETECTED; PARAINFLUENZA VIRUS 3 NOT DETECTED; PARAINFLUENZA VIRUS 4 NOT DETECTED; RHINOVIRUS/ENTEROVIRUS NOT DETECTED; RSV- RESP PCR PANEL NOT DETECTED; SARS-CoV-2 -RESP PCR PANEL NOT DETECTED
[2021-09-18] MEDS: SODIUM CHLORIDE FLUSH 0.9% 10 ML SYRINGE IVP SCH ×2 (15:09→23:30)
[2021-09-18] MEDS: SODIUM CHLORIDE 0.9% 1,000 ML IV SCH ×2 (15:10→23:41)
[2021-09-18] MEDS ORDERED: MAGNESIUM SULFATE 2 GRAM 2 GM/50 ML BAG IV ONE ×2 (16:00→18:59)
[2021-09-18] MEDS ORDERED: hydrALAZINE INJ 20 MG/ML VIAL IVP PRN (16:11)
[2021-09-18] MEDS: INSULIN ASPART 300 UNIT/3 ML PEN SUBQ SCH ×2 (17:09→20:56)
[2021-09-18 18:42] LABS: CALCIUM 8.4 mg/dL (8.5-10.3); CREATININE 0.6 mg/dL (0.4-1.0); POTASSIUM 3.3 mmol/L (3.5-5.0)
[2021-09-18] MEDS ORDERED: POTASSIUM CHLORIDE 20 MEQ TABLET PO ONE (19:00)
[2021-09-19] MEDS: POTASSIUM CHLOR 10 MEQ/100 ML 10 MEQ/100 ML BAG IV SCH ×2 (03:39→04:53)
[2021-09-19 05:09] LABS: BASOPHILS # (AUTO) 0.1 10^3/uL (0.0-0.1); BASOPHILS % (AUTO) 1.1 %; EOSINOPHILS # (AUTO) 0.6 10^3/uL (0.0-0.7); HCT - HEMATOCRIT 35.7 % (37.0-47.0); HGB - HEMOGLOBIN 12.2 g/dL (12.0-16.0); LYMPHOCYTES # (AUTO) 1.8 10^3/uL (1.5-3.5); LYMPHOCYTES % (AUTO) 25.5 %; MEAN CORPUSCULAR HGB CONC 34.2 g/dL (32.0-36.0); MEAN CORPUSCULAR VOLUME 87.7 fL (81.0-99.0); MEAN PLATELET VOLUME 8.7 fL (7.9-10.8); MONOCYTES # (AUTO) 0.8 10^3/uL (0.0-1.0); MONOCYTES % (AUTO) 11.8 %; NEUTROPHILS # (AUTO) 3.7 10^3/uL (1.5-6.6); NEUTROPHILS % (AUTO) 52.5 %; PLT - PLATELET COUNT 431 10^3/uL (130-450); RED BLOOD COUNT 4.07 10^6/uL (4.20-5.40); RED CELL DISTRIBUTION WIDTH 12.7 % (12.0-15.0)
[2021-09-19 05:18] LABS: CALCIUM 7.9 mg/dL (8.5-10.3); CREATININE 0.5 mg/dL (0.4-1.0); POTASSIUM 3.9 mmol/L (3.5-5.0)
[2021-09-19 07:07] LABS: CALCIUM 7.9 mg/dL (8.5-10.3); CREATININE 0.4 mg/dL (0.4-1.0); POTASSIUM 4.1 mmol/L (3.5-5.0)
[2021-09-19] MEDS: INSULIN ASPART 300 UNIT/3 ML PEN SUBQ SCH ×2 (07:49→11:25)
[2021-09-19] MEDS: SODIUM CHLORIDE FLUSH 0.9% 10 ML SYRINGE IVP SCH (07:50)
--- NOTE | 2021-09-19 08:08 | PHARMACY PROGRESS NOTE ---
- Best Possible Medication History Admit Date and Time: 09/18/21 1354 Processed by: Pharmacy Medication History completed: Yes Secondary Source(s): Pharmacy records, Insurance records As the person ultimately responsible for medication therapy, providers are able to order a medication from an existing home medication list in [facility] via the "Reconcile Routine" prior to Confirmation of that medication by technical support assistant. Such practice is discouraged except when the physician, in their clinical judgment, deems that a medical need exists for a medication without regard to previous use.
[2021-09-19] MEDS: SODIUM CHLORIDE 0.9% 1,000 ML IV SCH (08:46)
[2021-09-19] MEDS ORDERED: ALBUTEROL NEB 2.5 MG/3 ML INH PRN (09:18)
[2021-09-19 10:17] VITALS: BP 150/56
--- NOTE | 2021-09-19 11:26 | DISCHARGE SUMMARY ---
Discharge Summary Admit Date: 09/18/21 Discharge Date: 09/19/21 Discharging Provider: Carson Silverman Condition at Discharge: Stable Discharge Disposition: 01 Home, Self Care - DIAGNOSES Admission Diagnoses: Acute Hyponatremia Nausea and vomiting Ear infection Vertigo History of CVA Hypertension Diabetes mellitus Discharge Diagnoses with Status of Each Condition: Acute Hyponatremia: Acute. Improved Nausea and vomiting: Acute. Resolved Ear infectionAcute. Resolved. Patient completed antibiotic Vertigo: Acute. Resolved History of CVA: Chronic. Hypertension: Chronic. Stable. Continue home medications Diabetes mellitus: Chronic. Stable. Continue home medications - HPI History of Present Illness: Patient is an 80-year-old female who presented to the ED with complaint of dizziness, nausea and vomiting. She had been seen at the urgent care clinic 5 days ago with complaints of headache dizziness, cough and fever. She was di agnosed with an ear infection and prescribed amoxicillin. She decided to come in today for the persistent nausea vomiting and dizziness. Her cough is nonproductive. In the ED work-up included a BMP which showed a critical sodium level of 119. As a result she was presented for admission for further treatment. At bedside she is resting comfortably. She denies chest pain, dyspnea, abdominal pain, fever or chills. The rest of her history is unremarkable. - HOSPITAL COURSE Hospital Course: Patient was initially started on normal saline at 250 mL/h in the ED. This was changed to normal saline at 100 mL/h upon arrival her on the medical floor. Over the course of 24 hours patient's sodium level improved from 119 up to 130. It is suspected that hyponatremia was as a result of nausea, vomiting. Nausea and vomiting was related to vertigo which in turn was related to recent ear infection.Patient completed a dose of amoxicillin for 5 days for ear infection. Patient's symptoms of nausea, vomiting and vertigo have resolved. Patient reported feeling better after 24 hours of hospital stay. Consequently she is being discharged home. The rest of her hospital stay was unremarkable. - ALLERGIES Allergies/Adverse Reactions: Allergies Allergy/AdvReac Type Severity Reaction Status Date / Time No Known Drug Allergies Allergy Verified 09/18/21 11:55 - MEDICATIONS Home Medications: Ambulatory Orders Medication Instructions Recorded Confirmed Felodipine [Felodipine ER] 10 mg PO DAILY 10/27/15 09/19/21 Lisinopril 20 mg PO BID 10/27/15 09/19/21 Aspirin EC [Ecotrin] 81 mg PO DAILY #30 tablet 06/27/20 09/19/21 Atorvastatin Calcium [Lipitor] 80 mg PO QPM #30 tablet 06/27/20 09/19/21 Isosorbide Mononitrate [Isosorbide 60 mg pe PO DAILY 08/02/20 09/19/21 Mononitrate ER] Fluticasone [Flonase] 1 sprays FLORA BID 09/19/21 09/19/21 Glimepiride [Amaryl] 2 mg PO 0800 09/19/21 09/19/21 Meclizine [Antivert] 12.5 mg PO TID PRN 09/19/21 09/19/21 Metoprolol Succinate 100 mg PO DAILY 09/19/21 09/19/21 Potassium Chloride [K-Dur] 20 meq PO DAILYWM 09/19/21 09/19/21 Sertraline [Zoloft] 50 mg PO DAILY 09/19/21 09/19/21 metFORMIN [Glucophage] 850 mg PO BIDWM 09/19/21 09/19/21 - PHYSICAL EXAM AT DISCHARGE General Appearance: positive: No acute distress, Alert Eyes Bilateral: positive: PERRL, EOMI ENT: positive: No signs of dehydration Neck: positive: Trachea midline Respiratory: positive: Chest non-tender, No respiratory distress Cardiovascular: positive: Regular rate & rhythm, No murmur Abdomen: positive: Non-tender, No organomegaly, Nml bowel sounds, No distention. negative: Guarding, Rebound Back: positive: Nml inspection, CVA tenderness (R) Skin: positive: Color nml, No rash, Warm, Dry Extremities: positive: Non-tender, Full ROM, Nml appearance, No pedal edema Neurologic/Psychiatric: positive: Oriented x3, Mood/affect nml - LABS Result Diagrams: 09/19/21 04:52 09/19/21 06:51 - TIME SPENT Time Spent in Discharge (Minutes): 20
--- NOTE | 2021-09-19 11:27 | DISCHARGE SUMMARY ---
Discharge Summary Condition at Discharge: Stable - ALLERGIES Allergies/Adverse Reactions: Allergies Allergy/AdvReac Type Severity Reaction Status Date / Time No Known Drug Allergies Allergy Verified 09/18/21 11:55 - MEDICATIONS Home Medications: Ambulatory Orders Medication Instructions Recorded Confirmed Felodipine [Felodipine ER] 10 mg PO DAILY 10/27/15 09/19/21 Lisinopril 20 mg PO BID 10/27/15 09/19/21 Aspirin EC [Ecotrin] 81 mg PO DAILY #30 tablet 06/27/20 09/19/21 Atorvastatin Calcium [Lipitor] 80 mg PO QPM #30 tablet 06/27/20 09/19/21 Isosorbide Mononitrate [Isosorbide 60 mg pe PO DAILY 08/02/20 09/19/21 Mononitrate ER] Fluticasone [Flonase] 1 sprays FLORA BID 09/19/21 09/19/21 Glimepiride [Amaryl] 2 mg PO 0800 09/19/21 09/19/21 Meclizine [Antivert] 12.5 mg PO TID PRN 09/19/21 09/19/21 Metoprolol Succinate 100 mg PO DAILY 09/19/21 09/19/21 Potassium Chloride [K-Dur] 20 meq PO DAILYWM 09/19/21 09/19/21 Sertraline [Zoloft] 50 mg PO DAILY 09/19/21 09/19/21 metFORMIN [Glucophage] 850 mg PO BIDWM 09/19/21 09/19/21 - LABS Result Diagrams: 09/19/21 04:52 09/19/21 06:51
--- NOTE | 2021-09-19 11:31 | Discharge Plan ---
Discharge Plan Problem Reviewed?: Yes Disposition: Home, Self Care Condition: Stable Diet: Diabetic Activity Restrictions: Activity as Tolerated Assistance Devices: Cane Health Concerns: You were admitted on 09/19/21 with complaint of nausea, vomiting and dizziness. Upon work-up in the ED it was noted that your sodium level was 119 thus you were presented for admission for further treatment. It is suspected that your nausea and vomiting is as a result of dizziness. The dizziness in turn is likely secondary to vertigo related to recent ear infection. You have completed 5 days of amoxicillin for ear infection. Currently/at the time of admission you were afebrile and your white blood cell count was normal. Over 24 hours of treatment with IV hydration using normal saline and meclizine as needed for sensation of vertigo your symptoms improved/resolved. Your sodium level also improved to 130. You also reported feeling better. As a result you are being discharged home. You may continue to keep hydrated using Gatorade and drinking water. You may follow-up with your primary care physician as needed. You expressed understanding to the plan above and are in agreement. You are being discharged in stable condition. No Smoking: If you smoke, Please STOP! Call for help.
[2021-09-19 11:57] LABS: CALCIUM 8.2 mg/dL (8.5-10.3); CREATININE 0.6 mg/dL (0.4-1.0); POTASSIUM 3.7 mmol/L (3.5-5.0)
== END 2021-09-19 13:23 | disposition home or self-care (01) ==
LOC: ED 11:45 → MS2 13:54
PROVIDERS: ADMIT Internal Medicine; ATTEND Internal Medicine
DX: E87.1 Hypo-osmolality and hyponatremia (principal); R42 Dizziness and giddiness; E11.9 Type 2 diabetes mellitus without complications; H66.90 Otitis media, unspecified, unspecified ear; I10 Essential (primary) hypertension; I69.951 Hemiplegia and hemiparesis following unspecified cerebrovascular disease affecting right dominant side; R11.2 Nausea with vomiting, unspecified; Z20.822 Contact with and (suspected) exposure to COVID-19
CPT/HCPCS: 36415; 80048; 80053; 83690; 83735; 84443; 85025; 87631; 93005; 96361; 96365; 96366; 96375; 96376; 99284; 99285; A9270; 0202U

== ENCOUNTER 2021-09-28 10:01 | Outpatient (CLI) | payer MEDICARE, OTHER ==
[2021-09-28 12:06] LABS: CREATININE,URINE 33.2 mg/dL
[2021-09-28 12:11] LABS: CREATININE,URINE 33.2 mg/dL; MICROALBUM/CREATININE RATIO,UR 686.7 ug/mg (<30.0); MICROALBUMIN,URINE 22.8 mg/dL (0-300.0)
[2021-09-28 12:21] LABS: CHOL/HDL RATIO 3.4 (<4.4); CHOLESTEROL 105 mg/dL; HDL CHOLESTEROL 31 mg/dL; LDL CHOLESTEROL,CALCULATED 52 mg/dL; LDL/HDL RATIO 1.7 (<4.4); TRIGLYCERIDES 110 mg/dL; VLDL CHOLESTEROL 22 mg/dL
[2021-09-28 12:29] LABS: ESTIMATED AVERAGE GLUCOSE 189 mg/dL (70-100); HEMOGLOBIN A1c% 8.2 % (4.27-6.07)
[2021-09-28 12:37] LABS: ALBUMIN 4.8 g/dL (3.2-5.5); ALBUMIN/GLOBULIN RATIO 1.4 (1.0-2.2); BILIRUBIN,TOTAL 0.5 mg/dL (0.2-1.0); CALCIUM 9.2 mg/dL (8.5-10.3); CREATININE 0.5 mg/dL (0.4-1.0); POTASSIUM 3.8 mmol/L (3.5-5.0); TOTAL PROTEIN 8.2 g/dL (6.7-8.2)
== END 2021-09-28 10:02 | disposition home or self-care (01) ==
LOC: LAB.N 10:01
PROVIDERS: ATTEND Internal Medicine
DX: E11.42 Type 2 diabetes mellitus with diabetic polyneuropathy (principal); E87.1 Hypo-osmolality and hyponatremia
CPT/HCPCS: 36415; 80048; 80053; 80061; 82043; 82570; 83036; 83721; 83930; 83935; 84300

== ENCOUNTER 2022-01-15 09:48 | Outpatient (CLI) | payer MEDICARE, OTHER ==
[2022-01-15 19:09] LABS: BASOPHILS # (AUTO) 0.1 10^3/uL (0.0-0.1); BASOPHILS % (AUTO) 0.4 %; EOSINOPHILS # (AUTO) 0.4 10^3/uL (0.0-0.7); EOSINOPHILS % (AUTO) 3.9 %; HCT - HEMATOCRIT 33.1 % (37.0-47.0); HGB - HEMOGLOBIN 10.5 g/dL (12.0-16.0); LYMPHOCYTES % (AUTO) 35.8 %; MEAN CORPUSCULAR HEMOGLOBIN 30.3 pg (27.0-31.0); MEAN CORPUSCULAR HGB CONC 31.7 g/dL (32.0-36.0); MEAN CORPUSCULAR VOLUME 95.4 fL (81.0-99.0); MEAN PLATELET VOLUME 10.8 fL (7.9-10.8); MONOCYTES % (AUTO) 8.5 %; NEUTROPHILS # (AUTO) 5.7 10^3/uL (1.5-6.6); NEUTROPHILS % (AUTO) 51.1 %; PLT - PLATELET COUNT 457 10^3/uL (130-450); RED BLOOD COUNT 3.47 10^6/uL (4.20-5.40); WHITE BLOOD COUNT 11.1 x10^3/uL (4.8-10.8)
[2022-01-15 19:31] LABS: CREATININE,URINE 53.1 mg/dL; MICROALBUM/CREATININE RATIO,UR 82.9 ug/mg (<30.0); MICROALBUMIN,URINE 4.4 mg/dL (0-300.0)
[2022-01-15 19:39] LABS: THYROID STIMULATING HORMONE 1.15 uIU/mL (0.34-5.60)
[2022-01-15 19:46] LABS: % IRON SATURATION 11 % (20-50); ALBUMIN 3.5 g/dL (3.2-5.5); ALBUMIN/GLOBULIN RATIO 0.8 (1.0-2.2); ALKALINE PHOSPHATASE 48 IU/L (42-121); ALT ALANINE AMINOTRANSFERASE 11 IU/L (10-60); AST ASPARTATE AMINOTRANSFERASE 19 IU/L (10-42); BILIRUBIN,TOTAL 0.4 mg/dL (0.2-1.0); BUN - BLOOD UREA NITROGEN 15 mg/dL (6-20); CALCIUM 9.3 mg/dL (8.5-10.3); CARBON DIOXIDE - CO2 28 mmol/L (21-32); CHLORIDE 102 mmol/L (101-111); CHOL/HDL RATIO 3.2 (<4.4); CHOLESTEROL 82 mg/dL; CREATININE 0.7 mg/dL (0.4-1.0); GFR - MDRD 80 (>89); GLUCOSE 140 mg/dL (70-100); HDL CHOLESTEROL 26 mg/dL; IRON 31 ug/dL (28-170); LDL CHOLESTEROL,CALCULATED 37 mg/dL; LDL/HDL RATIO 1.4 (<4.4); LIPASE 35 U/L (22-51); POTASSIUM 4.5 mmol/L (3.5-5.0); SODIUM 138 mmol/L (135-145); TOTAL IRON BINDING CAPACITY 294 ug/dL (250-450); TRANSFERRIN 210 mg/dL (192-382); TRIGLYCERIDES 97 mg/dL; VLDL CHOLESTEROL 19 mg/dL
[2022-01-17 10:16] LABS: ESTIMATED AVERAGE GLUCOSE 183 mg/dL (70-100)
== END 2022-01-15 09:49 | disposition home or self-care (01) ==
LOC: LAB.N 09:48
PROVIDERS: ATTEND Internal Medicine
DX: R10.11 Right upper quadrant pain (principal); E11.42 Type 2 diabetes mellitus with diabetic polyneuropathy; D64.9 Anemia, unspecified; F41.9 Anxiety disorder, unspecified; F32.A Depression, unspecified
CPT/HCPCS: 36415; 80053; 80061; 82043; 82570; 82728; 83036; 83540; 83690; 83721; 84443; 84466; 85025

== ENCOUNTER 2022-01-26 09:40 | Outpatient (CLI) | payer MEDICARE, OTHER ==
--- NOTE | 2022-01-26 16:51 | Ultrasound Report ---
PROCEDURE: Abdomen Complete INDICATIONS: RUQ ABD PAIN TECHNIQUE: Real-time scanning was performed of the abdominal and retroperitoneal organs, with image documentatio n. COMPARISON: None. FINDINGS: Liver: Liver is normal in size and homogeneous in echotexture. Gallbladder: No stones. Wall thickness is normal measuring 1.7 mm. Biliary ducts: Intrahepatic bile ducts are non-dilated. Extrahepatic bile duct caliber measures 6.2 mm. Normal is 6-7 mm or less in diameter, or 10 mm or less post-cholecystectomy. Pancreas: Visualized portions of the pancreas are sonographically normal. Spleen: Removed. Kidneys: Kidneys are normal in size and echotexture. Right kidney measures 9.9 cm long; left kidney measures 10.5 cm long. No hydronephrosis or nephrolithiasis. No solid masses. Multiple bilateral simple cysts are identified. The largest on the left measures 2.0 x 1.9 x 1.7 cm. The largest on the right measures 0.8 x 0.8 x 0.6 cm. Aorta: Visualized aorta is normal in caliber at less than 3 cm. Iliacs: Proximal common iliac arteries are normal in caliber at less than 2.5 cm. IVC: Intrahepatic inferior vena cava is patent. Miscellaneous: No free abdominal fluid. IMPRESSION: Bilateral renal cysts. Gallbladder is unremarkable. Reviewed by: Zuleika Park MD on 01/26/2022 4:50 PM PDT Approved by: Zuleika Park MD on 01/26/2022 4:50 PM PDT Station ID: [id number]
== END 2022-01-26 09:41 | disposition home or self-care (01) ==
LOC: DI 09:40
PROVIDERS: ATTEND Internal Medicine
DX: N28.1 Cyst of kidney, acquired (principal)

== ENCOUNTER 2022-04-13 09:42 | Outpatient (CLI) | payer MEDICARE, OTHER ==
[2022-04-13 12:51] LABS: BASOPHILS # (AUTO) 0.1 10^3/uL (0.0-0.1); BASOPHILS % (AUTO) 0.5 %; EOSINOPHILS # (AUTO) 0.2 10^3/uL (0.0-0.7); EOSINOPHILS % (AUTO) 2.2 %; HGB - HEMOGLOBIN 11.7 g/dL (12.0-16.0); LYMPHOCYTES # (AUTO) 4.4 10^3/uL (1.5-3.5); LYMPHOCYTES % (AUTO) 41.7 %; MEAN CORPUSCULAR HEMOGLOBIN 29.5 pg (27.0-31.0); MEAN CORPUSCULAR HGB CONC 32.5 g/dL (32.0-36.0); MEAN CORPUSCULAR VOLUME 90.9 fL (81.0-99.0); MEAN PLATELET VOLUME 10.8 fL (7.9-10.8); MONOCYTES # (AUTO) 0.8 10^3/uL (0.0-1.0); MONOCYTES % (AUTO) 7.9 %; NEUTROPHILS # (AUTO) 5.1 10^3/uL (1.5-6.6); NEUTROPHILS % (AUTO) 47.2 %; PLT - PLATELET COUNT 384 10^3/uL (130-450); RED BLOOD COUNT 3.96 10^6/uL (4.20-5.40); RED CELL DISTRIBUTION WIDTH 14.2 % (12.0-15.0); WHITE BLOOD COUNT 10.7 x10^3/uL (4.8-10.8)
[2022-04-13 13:18] LABS: ALBUMIN 4.5 g/dL (3.2-5.5); ALBUMIN/GLOBULIN RATIO 1.2 (1.0-2.2); BILIRUBIN,TOTAL 0.6 mg/dL (0.2-1.0); CALCIUM 9.7 mg/dL (8.5-10.3); CREATININE 0.5 mg/dL (0.4-1.0); POTASSIUM 3.8 mmol/L (3.5-5.0); TOTAL PROTEIN 8.4 g/dL (6.7-8.2)
== END 2022-04-13 09:43 | disposition home or self-care (01) ==
LOC: LAB.N 09:42
PROVIDERS: ATTEND Internal Medicine
DX: D64.9 Anemia, unspecified (principal); R10.11 Right upper quadrant pain
CPT/HCPCS: 36415; 80053; 82728; 83540; 84466; 85025

== ENCOUNTER 2022-06-14 14:48 | Outpatient (CLI) | payer MEDICARE | END 2022-06-14 14:49 | disposition critical access hospital (66) | LOC: EMS 14:48 | DX: R12 Heartburn (principal); R10.84 Generalized abdominal pain | CPT/HCPCS: A0425; A0429 ==

== ENCOUNTER 2022-06-14 15:10 | Emergency (ER) | payer MEDICARE, OTHER ==
[2022-06-14 15:31] LABS: BASOPHILS # (AUTO) 0.1 10^3/uL (0.0-0.1); BASOPHILS % (AUTO) 0.7 %; EOSINOPHILS # (AUTO) 0.4 10^3/uL (0.0-0.7); EOSINOPHILS % (AUTO) 3.4 %; HGB - HEMOGLOBIN 10.9 g/dL (12.0-16.0); LYMPHOCYTES # (AUTO) 3.3 10^3/uL (1.5-3.5); LYMPHOCYTES % (AUTO) 29.9 %; MEAN CORPUSCULAR HEMOGLOBIN 29.3 pg (27.0-31.0); MEAN CORPUSCULAR HGB CONC 32.1 g/dL (32.0-36.0); MEAN CORPUSCULAR VOLUME 91.4 fL (81.0-99.0); MONOCYTES # (AUTO) 0.8 10^3/uL (0.0-1.0); MONOCYTES % (AUTO) 7.5 %; NEUTROPHILS # (AUTO) 6.4 10^3/uL (1.5-6.6); NEUTROPHILS % (AUTO) 58.2 %; PLT - PLATELET COUNT 384 10^3/uL (130-450); RED BLOOD COUNT 3.72 10^6/uL (4.20-5.40); RED CELL DISTRIBUTION WIDTH 13.9 % (12.0-15.0)
[2022-06-14] MEDS ORDERED: ONDANSETRON 4 MG/2 ML VIAL IVP STA (15:33)
--- NOTE | 2022-06-14 15:41 | XRAY Report ---
PROCEDURE: Chest 1 View X-Ray INDICATIONS: Chest pain TECHNIQUE: One view of the chest was acquired. COMPARISON: None. FINDINGS: Surgical changes and devices: None. Lungs and pleura: No pleural effusions or pneumothorax. Lungs are clear. Mediastinum: Mediastinal contours appear normal. Heart size is normal. Bones and chest wall: No suspicious bony lesions. Overlying soft tissues appear unremarkable. IMPRESSION: No acute cardiopulmonary process demonstrated radiographically. Reviewed by: Beltran Arita MD on 06/14/2022 3:39 PM PST Approved by: Beltran Arita MD on 06/14/2022 3:39 PM PST Station ID: [id number]
[2022-06-14 15:46] LABS: MAGNESIUM 1.6 mg/dL (1.7-2.8); PHOSPHORUS 3.6 mg/dL (2.5-4.6)
[2022-06-14 15:47] LABS: ALBUMIN 3.9 g/dL (3.2-5.5); ALBUMIN/GLOBULIN RATIO 1.1 (1.0-2.2); BILIRUBIN,TOTAL 0.5 mg/dL (0.2-1.0); CALCIUM 9.1 mg/dL (8.5-10.3); CREATININE 0.6 mg/dL (0.4-1.0); POTASSIUM 4.6 mmol/L (3.5-5.0); TOTAL PROTEIN 7.6 g/dL (6.7-8.2)
[2022-06-14] MEDS ORDERED: MAG HYDROX/AL HYDROX/SIMETH 30 ML UDC PO STA (16:06)
[2022-06-14 16:16] VITALS: BP 143/69
--- NOTE | 2022-06-14 16:32 | ED Physician Documentation ---
History of Present Illness - Stated complaint Stated Complaint: ABD PX - Chief complaint Chief Complaint: Cardiac - Additonal information Additional information: 81-year-old female presents emergency department for evaluation of indigestion. She has a burning sensation in her upper abdomen that extends into the chest. She is denying focal chest pain or shortness of air. No vomiting or diarrhea. No melena. No history of similar. Review of Systems Constitutional: denies: Fever, Chills Cardiac: reports: Reviewed and negative Respiratory: reports: Reviewed and negative GI: reports: Abdominal Pain, Nausea. 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 : None HEENT: Other Psych: Depression Musculoskeletal: Osteoarthritis Derm: Eczema - Past Surgical History Past Surgical History: Yes General: Other HEENT: Cataracts - Present Medications Home Medications: Ambulatory Orders Medication Instructions Recorded Confirmed Felodipine [Felodipine ER] 10 mg PO DAILY 10/27/15 09/19/21 Lisinopril 20 mg PO BID 10/27/15 09/19/21 Aspirin EC [Ecotrin] 81 mg PO DAILY #30 tablet 06/27/20 09/19/21 Atorvastatin Calcium [Lipitor] 80 mg PO QPM #30 tablet 06/27/20 09/19/21 Isosorbide Mononitrate [Isosorbide 60 mg pe PO DAILY 08/02/20 09/19/21 Mononitrate ER] Fluticasone [Flonase] 1 sprays FLORA BID 09/19/21 09/19/21 Glimepiride [Amaryl] 2 mg PO 0800 09/19/21 09/19/21 Meclizine [Antivert] 12.5 mg PO TID PRN 09/19/21 09/19/21 Metoprolol Succinate 100 mg PO DAILY 09/19/21 09/19/21 Potassium Chloride [K-Dur] 20 meq PO DAILYWM 09/19/21 09/19/21 Sertraline [Zoloft] 50 mg PO DAILY 09/19/21 09/19/21 hydroCHLOROthiazide [Hydrodiuril] 12.5 mg PO DAILY 09/19/21 09/19/21 metFORMIN [Glucophage] 850 mg PO BIDWM 09/19/21 09/19/21 - Allergies Allergies/Adverse Reactions: Allergies Allergy/AdvReac Type Severity Reaction Status Date / Time No Known Drug Allergies Allergy Verified 09/18/21 11:55 - Social History Does the pt smoke?: No Smoking Status: Never smoker Does the pt drink ETOH?: No Does the pt have substance abuse?: No - Immunizations Immunizations are current?: Yes - POLST Patient has POLST: Yes POLST Status: DNR PD ED PE NORMAL - General General: Alert and oriented X 3, No acute distress, Well developed/nourished - HEENT HEENT: Atraumatic, Moist mucous membranes - Neck Neck: Supple, no meningeal sign, No adenopathy - Cardiac Cardiac: RRR, No murmur - Respiratory Respiratory: No respiratory distress, Clear bilaterally - Abdomen Abdomen: Normal bowel sounds, Soft, Non tender - Back Back: No CVA TTP - Derm Derm: Normal color, Warm and dry, No rash - Extremities Extremities: No deformity - Neuro Neuro: Alert and oriented X 3, 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 No: Prolonged QT QRS: LVH Ischemia: Normal ST segments Compare to prior EKG: Unchanged from prior EKG Computer interpretation: Agree with computer - Labs Labs: Laboratory Tests 06/14/22 06/14/22 06/14/22 15:25 15:25 15:25 WBC 11.0 H RBC 3.72 L Hgb 10.9 L Hct 34.0 L MCV 91.4 MCH 29.3 MCHC 32.1 RDW 13.9 Plt Count 384 MPV 9.0 Neut # (Auto) 6.4 Lymph # (Auto) 3.3 [place] # (Auto) 0.8 Eos # (Auto) 0.4 Baso # (Auto) 0.1 Absolute Nucleated RBC 0.00 Nucleated RBC % 0.0 Sodium 134 L Potassium 4.6 Chloride 102 Carbon Dioxide 26 Anion Gap 6.0 BUN 15 Creatinine 0.6 Estimated GFR (MDRD) 96 Glucose 165 H Calcium 9.1 Phosphorus Magnesium Total Bilirubin 0.5 AST 21 ALT 17 Alkaline Phosphatase 46 Troponin I High Sens 5.2 B-Natriuretic Peptide Total Protein 7.6 Albumin 3.9 Globulin 3.7 Albumin/Globulin Ratio 1.1 Lipase 58 H 06/14/22 06/14/22 15:25 15:25 WBC RBC Hgb Hct MCV MCH MCHC RDW Plt Count MPV Neut # (Auto) Lymph # (Auto) [place] # (Auto) Eos # (Auto) Baso # (Auto) Absolute Nucleated RBC Nucleated RBC % Sodium Potassium Chloride Carbon Dioxide Anion Gap BUN Creatinine Estimated GFR (MDRD) Glucose Calcium Phosphorus 3.6 Magnesium 1.6 L Total Bilirubin AST ALT Alkaline Phosphatase Troponin I High Sens B-Natriuretic Peptide 73 Total Protein Albumin Globulin Albumin/Globulin Ratio Lipase - Rads (name of study) CT abd Radiology: Final report received (Nonacute abdomen. 1 to 2 mm stones in the inferior pole of the right kidney. 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 Recommend nonemergent GI series for follow-up evaluation. Mild diverticulosis without-itis.) PD MEDICAL DECISION MAKING - ED course Complexity details: reviewed results, re-evaluated patient, considered differential, d/w patient ED course: 81-year-old female presented to the emergency department for evaluation of mid epigastric abdominal pain and burning. She had felt somewhat short of air. Screening EKG was nonischemic. High-sensitivity troponin was negative. CBC and electrolytes were without acute worrisome findings. Here in the emergency department she did have some mild tenderness of the epigastrium. She was administered some milk of magnesia with improved sensation of burning in her stomach. She is on famotidine daily. Given her advanced age we did do a noncontrast CT of the abdomen that suggests a duodenal diverticulum at the duodenal jejunal junction. This finding was discussed with the patient. She is advised to have outpatient follow-up for a GI series or conversely an endoscopy. Patient was comfortable with discharge home and will continue her usual medications. Otherwise emergent return precautions discussed. Departure - Departure Disposition: Home, Self Care Clinical Impression: Epigastric abdominal pain, Duodenal diverticulum Condition: Stable Record reviewed to determine appropriate education?: Yes Follow-Up: Candelario Martinez MD [Primary Care Provider] - Comments: You are seen today in the emergency department because you developed some pain in your upper abdomen and had a burning sensation. Here in the emergency department your CBC electrolytes, EKG and chest x-ray were all essentially normal. We did do a CT of your abdomen and do find that you may have a duodenal diverticulum. This is an outpouching of the small intestine where it connects to the stomach. This is a common finding in the large intestine but less common in the small intestine and is likely the cause of your discomfort. There is no specific treatment indicated today. You should follow closely with Dr. Martinez. You may benefit from referral to surgery for an EGD or Dr. Martinez could do an upper GI series with barium as an outpatient. Return immediately to the ER if you develop suddenly severe or different abdominal pain, have uncontrolled vomiting, any black or bloody stools. Please continue to take your daily antacid medicine as you already do
--- NOTE | 2022-06-14 18:02 | CT Report ---
PROCEDURE: ABDOMEN/PELVIS WO INDICATIONS: indigestion TECHNIQUE: Noncontrast 5 mm thick sections acquired from the diaphragms to the symphysis. 5 mm coronal and sagi ttal reformats were then performed. For radiation dose reduction, the following was used: automated exposure control, adjustment of mA and/or kV according to patient size. COMPARISON: CT abdomen and pelvis with, 08/03/2020. CT abdomen and pelvis with, 04/06/2020. FINDINGS: Image quality: Excellent. ABDOMEN: Lung bases: Lung bases are clear. Heart size is normal. There is severe coronary calcification. Solid organs: Spleen is surgically absent. Liver normal in size. Gallbladder is contracted. Pancre as is normal in contours. Bilateral adrenal thickening. There are a couple of 1-2 mm nonobstructive stones in inferior pole of the right kidney. Kidneys are normal in size, without hydronephrosis. The re is a 1.9 cm exophytic nodule in left kidney, compatible with a cyst. Peritoneum and bowel: Unenhanced bowel loops demonstrate normal wall thickness and caliber. There is an effort level in the duodenum at the duodenal jejunal junction, suspicious for duodenal diverticul um. Appendix is normal. A few colonic diverticula are present. No diverticulitis. No free fluid or a ir. Nodes and vessels: No retroperitoneal or mesenteric adenopathy by size criteria. Aorta and inferior vena cava are normal in caliber. There are moderate atherosclerotic calcifications in abdominal aor ta. Miscellaneous: No ventral hernias. PELVIS: Genitourinary: Bladder wall thickness is normal. Miscellaneous: No inguinal hernias or adenopathy. Bones: No suspicious bony lesions. No vertebral body compression fractures. 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 IMPRESSION: 1. No acute medication in abdomen or pelvis. 2. A couple of 1-2 mm stones in the inferior pole of the right kidney. 3. Suspect a duodenal diverticulum at the duodenojejunal junction. Recommend nonemergent upper GI ser ies for follow-up evaluation. 4. Mild diverticulosis without diverticulitis. 5. Bilateral adrenal thickening. Reviewed by: Felix Arenas MD on 06/14/2022 6:01 PM PST Approved by: Felix Arenas MD on 06/14/2022 6:01 PM PST Station ID: [id number]
== END 2022-06-14 19:08 | disposition home or self-care (01) ==
LOC: EDUNIT# → ED 15:10
DX: K57.10 Diverticulosis of small intestine without perforation or abscess without bleeding (principal); Z66 Do not resuscitate
CPT/HCPCS: 36415; 71045; 74176; 80053; 83690; 83735; 83880; 84100; 84484; 85025; 93005; 96374; 99283; 99284; A9270

== ENCOUNTER 2022-08-31 07:06 | Outpatient (CLI) | payer MEDICARE, OTHER ==
[2022-08-31 11:56] LABS: BASOPHILS # (AUTO) 0.1 10^3/uL (0.0-0.1); BASOPHILS % (AUTO) 0.8 %; EOSINOPHILS # (AUTO) 0.4 10^3/uL (0.0-0.7); EOSINOPHILS % (AUTO) 3.8 %; HCT - HEMATOCRIT 38.2 % (37.0-47.0); LYMPHOCYTES # (AUTO) 3.6 10^3/uL (1.5-3.5); MEAN CORPUSCULAR HEMOGLOBIN 29.8 pg (27.0-31.0); MEAN CORPUSCULAR HGB CONC 31.4 g/dL (32.0-36.0); MEAN CORPUSCULAR VOLUME 94.8 fL (81.0-99.0); MEAN PLATELET VOLUME 10.4 fL (7.9-10.8); MONOCYTES # (AUTO) 0.7 10^3/uL (0.0-1.0); MONOCYTES % (AUTO) 7.9 %; NEUTROPHILS # (AUTO) 4.5 10^3/uL (1.5-6.6); NEUTROPHILS % (AUTO) 48.3 %; PLT - PLATELET COUNT 412 10^3/uL (130-450); RED BLOOD COUNT 4.03 10^6/uL (4.20-5.40); RED CELL DISTRIBUTION WIDTH 13.5 % (12.0-15.0); WHITE BLOOD COUNT 9.3 x10^3/uL (4.8-10.8)
[2022-08-31 12:17] LABS: BUN - BLOOD UREA NITROGEN 13 mg/dL (6-20); CALCIUM 9.5 mg/dL (8.5-10.3); CARBON DIOXIDE - CO2 28 mmol/L (21-32); CHLORIDE 102 mmol/L (101-111); CREATININE 0.6 mg/dL (0.4-1.0); ESTIMATED AVERAGE GLUCOSE 166 mg/dL (70-100); GFR - MDRD 96 (>89); GLUCOSE 146 mg/dL (70-100); HEMOGLOBIN A1c% 7.4 % (4.27-6.07); IRON 104 ug/dL (28-170); SODIUM 138 mmol/L (135-145); TRANSFERRIN 290 mg/dL (192-382)
[2022-08-31 12:18] LABS: % IRON SATURATION 26 % (20-50); ALBUMIN 4.3 g/dL (3.2-5.5); ALBUMIN/GLOBULIN RATIO 1.1 (1.0-2.2); ALKALINE PHOSPHATASE 43 IU/L (42-121); ALT ALANINE AMINOTRANSFERASE 19 IU/L (10-60); AST ASPARTATE AMINOTRANSFERASE 21 IU/L (10-42); BILIRUBIN,TOTAL 0.6 mg/dL (0.2-1.0); CHOL/HDL RATIO 2.6 (<4.4); CHOLESTEROL 99 mg/dL; HDL CHOLESTEROL 38 mg/dL; LDL CHOLESTEROL,CALCULATED 40 mg/dL; LDL/HDL RATIO 1.1 (<4.4); TOTAL IRON BINDING CAPACITY 406 ug/dL (250-450); TOTAL PROTEIN 8.1 g/dL (6.7-8.2); TRIGLYCERIDES 105 mg/dL; VLDL CHOLESTEROL 21 mg/dL
[2022-08-31 13:07] LABS: MICROALBUM/CREATININE RATIO,UR 945.5 ug/mg (<30.0); MICROALBUMIN,URINE 20.8 mg/dL (0-300.0)
[2022-08-31 13:32] LABS: FERRITIN 27.5 ng/mL (11.0-306.8)
== END 2022-08-31 07:07 | disposition home or self-care (01) ==
LOC: LAB.N 07:06
PROVIDERS: ATTEND Internal Medicine
DX: E11.42 Type 2 diabetes mellitus with diabetic polyneuropathy (principal); E78.5 Hyperlipidemia, unspecified; D64.9 Anemia, unspecified
CPT/HCPCS: 36415; 80053; 80061; 82043; 82570; 82607; 82728; 83036; 83540; 83721; 84466; 85025

== ENCOUNTER 2022-09-19 08:00 | Outpatient (CLI) | payer MEDICARE, OTHER | END 2022-09-19 23:59 | disposition home or self-care (01) | LOC: LAB.N 08:00 | PROVIDERS: ATTEND Physician Assistant | DX: R55 Syncope and collapse (principal) | CPT/HCPCS: 82962 ==

== ENCOUNTER 2022-09-21 07:00 | Outpatient (CLI) | payer MEDICARE, OTHER | END 2022-09-21 07:01 | disposition short-term general hospital (02) | LOC: EMS 07:00 | DX: R11.2 Nausea with vomiting, unspecified (principal); R19.5 Other fecal abnormalities; R42 Dizziness and giddiness; R10.813 Right lower quadrant abdominal tenderness | CPT/HCPCS: A0425; A0429 ==

== ENCOUNTER 2022-11-29 07:15 | Outpatient (CLI) | payer MEDICARE, OTHER ==
[2022-11-29 11:53] LABS: BASOPHILS # (AUTO) 0.1 10^3/uL (0.0-0.1); BASOPHILS % (AUTO) 0.8 %; EOSINOPHILS # (AUTO) 0.2 10^3/uL (0.0-0.7); HCT - HEMATOCRIT 33.9 % (37.0-47.0); HGB - HEMOGLOBIN 10.9 g/dL (12.0-16.0); LYMPHOCYTES # (AUTO) 2.6 10^3/uL (1.5-3.5); LYMPHOCYTES % (AUTO) 29.2 %; MEAN CORPUSCULAR HEMOGLOBIN 29.6 pg (27.0-31.0); MEAN CORPUSCULAR HGB CONC 32.2 g/dL (32.0-36.0); MEAN CORPUSCULAR VOLUME 92.1 fL (81.0-99.0); MEAN PLATELET VOLUME 9.7 fL (7.9-10.8); MONOCYTES # (AUTO) 0.7 10^3/uL (0.0-1.0); MONOCYTES % (AUTO) 7.8 %; NEUTROPHILS # (AUTO) 5.3 10^3/uL (1.5-6.6); NEUTROPHILS % (AUTO) 59.9 %; PLT - PLATELET COUNT 523 10^3/uL (130-450); RED BLOOD COUNT 3.68 10^6/uL (4.20-5.40); RED CELL DISTRIBUTION WIDTH 14.6 % (12.0-15.0); WHITE BLOOD COUNT 8.8 x10^3/uL (4.8-10.8)
[2022-11-29 12:20] LABS: ALBUMIN 4.3 g/dL (3.2-5.5); ALBUMIN/GLOBULIN RATIO 1.3 (1.0-2.2); BILIRUBIN,TOTAL 0.8 mg/dL (0.2-1.0); CALCIUM 9.3 mg/dL (8.5-10.3); CREATININE 0.8 mg/dL (0.4-1.0); POTASSIUM 3.9 mmol/L (3.5-5.0); TOTAL PROTEIN 7.7 g/dL (6.7-8.2)
== END 2022-11-29 07:16 | disposition home or self-care (01) ==
LOC: LAB.N 07:15
PROVIDERS: ATTEND Family Medicine
DX: K27.9 Peptic ulcer, site unspecified, unspecified as acute or chronic, without hemorrhage or perforation (principal); D64.9 Anemia, unspecified
CPT/HCPCS: 36415; 80053; 82728; 83540; 84466; 85025

== ENCOUNTER 2023-01-03 07:15 | Outpatient (CLI) | payer MEDICARE, OTHER ==
[2023-01-03 11:35] LABS: BASOPHILS # (AUTO) 0.1 10^3/uL (0.0-0.1); BASOPHILS % (AUTO) 1.2 %; EOSINOPHILS # (AUTO) 0.2 10^3/uL (0.0-0.7); HCT - HEMATOCRIT 37.3 % (37.0-47.0); LYMPHOCYTES # (AUTO) 2.4 10^3/uL (1.5-3.5); LYMPHOCYTES % (AUTO) 34.3 %; MEAN CORPUSCULAR HEMOGLOBIN 30.3 pg (27.0-31.0); MEAN CORPUSCULAR HGB CONC 32.2 g/dL (32.0-36.0); MEAN CORPUSCULAR VOLUME 94.2 fL (81.0-99.0); MEAN PLATELET VOLUME 10.2 fL (7.9-10.8); MONOCYTES # (AUTO) 0.5 10^3/uL (0.0-1.0); MONOCYTES % (AUTO) 7.8 %; NEUTROPHILS # (AUTO) 3.7 10^3/uL (1.5-6.6); NEUTROPHILS % (AUTO) 53.4 %; PLT - PLATELET COUNT 481 10^3/uL (130-450); RED BLOOD COUNT 3.96 10^6/uL (4.20-5.40); RED CELL DISTRIBUTION WIDTH 14.9 % (12.0-15.0); WHITE BLOOD COUNT 6.9 x10^3/uL (4.8-10.8)
[2023-01-03 12:10] LABS: ALBUMIN 4.6 g/dL (3.2-5.5); ALBUMIN/GLOBULIN RATIO 1.2 (1.0-2.2); ALKALINE PHOSPHATASE 45 IU/L (42-121); ALT ALANINE AMINOTRANSFERASE 17 IU/L (10-60); AST ASPARTATE AMINOTRANSFERASE 22 IU/L (10-42); BILIRUBIN,TOTAL 0.6 mg/dL (0.2-1.0); BUN - BLOOD UREA NITROGEN 22 mg/dL (6-20); CALCIUM 9.6 mg/dL (8.5-10.3); CARBON DIOXIDE - CO2 27 mmol/L (21-32); CHLORIDE 102 mmol/L (101-111); CHOL/HDL RATIO 2.3 (<4.4); CHOLESTEROL 106 mg/dL; CREATININE 0.7 mg/dL (0.4-1.0); GFR - MDRD 80 (>89); GLUCOSE 144 mg/dL (70-100); HDL CHOLESTEROL 47 mg/dL; LDL CHOLESTEROL,CALCULATED 37 mg/dL; LDL/HDL RATIO 0.8 (<4.4); POTASSIUM 3.7 mmol/L (3.5-5.0); SODIUM 139 mmol/L (135-145); TOTAL PROTEIN 8.3 g/dL (6.7-8.2); TRIGLYCERIDES 110 mg/dL; VLDL CHOLESTEROL 22 mg/dL
[2023-01-03 12:19] LABS: THYROID STIMULATING HORMONE 3.26 uIU/mL (0.34-5.60)
[2023-01-03 12:32] LABS: CREATININE,URINE 35.9 mg/dL; MICROALBUM/CREATININE RATIO,UR 949.9 ug/mg (<30.0); MICROALBUMIN,URINE 34.1 mg/dL (0-300.0)
[2023-01-03 12:34] LABS: ESTIMATED AVERAGE GLUCOSE 146 mg/dL (70-100); HEMOGLOBIN A1c% 6.7 % (4.27-6.07)
== END 2023-01-03 07:16 | disposition home or self-care (01) ==
LOC: LAB.N 07:15
PROVIDERS: ATTEND Internal Medicine
DX: I25.10 Atherosclerotic heart disease of native coronary artery without angina pectoris (principal); E87.1 Hypo-osmolality and hyponatremia; E11.42 Type 2 diabetes mellitus with diabetic polyneuropathy
CPT/HCPCS: 36415; 80053; 80061; 82043; 82570; 83036; 83721; 84443; 85025

== ENCOUNTER 2023-01-27 16:30 | Outpatient (CLI) | payer MEDICARE, OTHER ==
[2023-01-27 20:48] LABS: BASOPHILS # (AUTO) 0.1 10^3/uL (0.0-0.1); BASOPHILS % (AUTO) 0.5 %; EOSINOPHILS # (AUTO) 0.2 10^3/uL (0.0-0.7); EOSINOPHILS % (AUTO) 1.8 %; HCT - HEMATOCRIT 35.8 % (37.0-47.0); HGB - HEMOGLOBIN 11.7 g/dL (12.0-16.0); LYMPHOCYTES # (AUTO) 2.6 10^3/uL (1.5-3.5); LYMPHOCYTES % (AUTO) 27.7 %; MEAN CORPUSCULAR HEMOGLOBIN 30.6 pg (27.0-31.0); MEAN CORPUSCULAR HGB CONC 32.7 g/dL (32.0-36.0); MEAN CORPUSCULAR VOLUME 93.7 fL (81.0-99.0); MEAN PLATELET VOLUME 9.8 fL (7.9-10.8); MONOCYTES # (AUTO) 0.8 10^3/uL (0.0-1.0); MONOCYTES % (AUTO) 8.1 %; NEUTROPHILS # (AUTO) 5.8 10^3/uL (1.5-6.6); NEUTROPHILS % (AUTO) 61.6 %; PLT - PLATELET COUNT 480 10^3/uL (130-450); RED BLOOD COUNT 3.82 10^6/uL (4.20-5.40); WHITE BLOOD COUNT 9.5 x10^3/uL (4.8-10.8)
[2023-01-27 20:59] LABS: ALBUMIN 4.4 g/dL (3.2-5.5); ALBUMIN/GLOBULIN RATIO 1.2 (1.0-2.2); ALKALINE PHOSPHATASE 37 IU/L (42-121); ALT ALANINE AMINOTRANSFERASE < 10 IU/L (10-60); AST ASPARTATE AMINOTRANSFERASE 21 IU/L (10-42); BUN - BLOOD UREA NITROGEN 30 mg/dL (6-20); CALCIUM 9.4 mg/dL (8.5-10.3); CARBON DIOXIDE - CO2 24 mmol/L (21-32); CHLORIDE 101 mmol/L (101-111); CREATININE 0.9 mg/dL (0.4-1.0); GFR - MDRD 60 (>89); GLUCOSE 148 mg/dL (70-100); POTASSIUM 4.6 mmol/L (3.5-5.0); PREALBUMIN 27 mg/dL (18-45); SODIUM 134 mmol/L (135-145); TOTAL PROTEIN 8.1 g/dL (6.7-8.2)
== END 2023-01-27 16:45 | disposition home or self-care (01) ==
LOC: LAB.N 16:30
PROVIDERS: ATTEND Family Medicine
DX: K27.9 Peptic ulcer, site unspecified, unspecified as acute or chronic, without hemorrhage or perforation (principal); R63.0 Anorexia
CPT/HCPCS: 36415; 80053; 84134; 85025

== ENCOUNTER 2023-01-31 08:20 | Outpatient (CLI) | payer MEDICARE, OTHER | END 2023-01-31 23:59 | disposition short-term general hospital (02) | LOC: EMS 08:20 | DX: R11.2 Nausea with vomiting, unspecified (principal); R19.7 Diarrhea, unspecified; R53.1 Weakness | CPT/HCPCS: A0425; A0427; A0888 ==

== ENCOUNTER 2023-02-01 14:17 | Outpatient (CLI) | payer MEDICARE, OTHER | END 2023-02-01 23:59 | disposition short-term general hospital (02) | LOC: EMS 14:17 | DX: R51.9 Headache, unspecified (principal); R11.0 Nausea | CPT/HCPCS: A0425; A0427; A0888 ==